=== PATIENT | male | born 1935 | race Caucasian/White ===

== ENCOUNTER 2016-12-05 20:26 | Emergency (ER) | payer MEDICARE, BC ==
[2016-12-05 20:56] VITALS: BP 144/91
--- NOTE | 2016-12-06 08:17 | EDM.PDOC ---
ED HPI GENERAL MEDICAL PROBLEM - General Chief Complaint: General Stated Complaint: WEAKNESS Time Seen by Provider: 12/05/16 20:50 Source of Information: Reports: Patient History Limitations: Reports: No limitations - History of Present Illness INITIAL COMMENTS - FREE TEXT/NARRATIVE: This is a 81yo M with severe abdominal pain prior to arrival in ER and resolved soon after arrival to ER. Patient denies prior episodes of abdominal pain. He denies any fever or chills and last meal was about 7pm. Patient denies other symptoms or concerns. No recent constipation or bM concerns. 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 HELPER: Reports: Other (see below) Other Treatments TERRAZZO LAYER HELPER: king alonzo Lower Abdominal Pain Score (Numeric/FACES): 10 - Related Data Allergies Allergy/AdvReac Type Severity Reaction Status Date / Time No Known Allergies Allergy Verified 01/21/16 17:37 Home Meds: Home Meds Acetaminophen/Diphenhydramine [Tylenol Pm Ex-Strength Caplet] 1 tab PO DAILY PRN 01/11/16 [History] Aspirin 81 mg PO DAILY 01/11/16 [History] Diltiazem [Cardizem] 240 mg PO DAILY 01/11/16 [History] Timolol [Betimol 0.5% Ophth Soln] 1 drop EYELF DAILY 01/11/16 [History] atorvaSTATin Calcium [Atorvastatin Calcium] 40 mg PO Q48H 01/11/16 [History] Past Medical History HEENT History: Reports: Glaucoma, Impaired vision Cardiovascular History: Reports: Afib, Bypass, High cholesterol, Hypertension Respiratory History: Reports: None Gastrointestinal History: Reports: None, GERD Musculoskeletal History: Reports: Back pain, chronic Neurological History: Reports: Vertigo Other Neuro History: Occ. Headaches Oncologic (Cancer) History: Reports: None - Infectious Disease History Infectious Disease History: Reports: Chicken pox, Measles - Past Surgical History Cardiovascular Surgical History: Reports: Coronary artery bypass Neurological Surgical History: Reports: Lumbar spine, Thoracic spine Other Neurological Surgeries/Procedures: B feet: decrease in sensation, no pain in LEs Musculoskeletal Surgical History: Reports: Other (see below) Other Musculoskeletal Surgeries/Procedures:: Back Surgery Social & Family History - Tobacco Use Smoking Status *Q: Current Every Day Smoker Years of Tobacco use: 60 Packs/Tins Daily: 1 Used Tobacco, but Quit: No Second Hand Smoke Exposure: No - Alcohol Use Days Per Week of Alcohol Use: 0 - Recreational Drug Use Recreational Drug Use: No ED ROS GENERAL - Review of Systems Review Of Systems: ROS reveals no pertinent complaints other than HPI. ED EXAM, GENERAL - Physical Exam Exam: See Below Exam Limited By: No limitations General Appearance: alert, WD/WN, no apparent distress Eye Exam: bilateral eye: PERRL Ears: normal external exam Nose: normal inspection Throat/Mouth: Normal inspection Head: atraumatic, normocephalic Neck: normal inspection, supple, non-tender Respiratory/Chest: no respiratory distress, lungs clear, normal breath sounds Cardiovascular: normal peripheral pulses, regular rate, rhythm, no edema GI/Abdominal: soft, non tender, no organomegaly, no distention, no abnormal bruit, no mass, abnormal bowel sounds: (hyperactive bowel sounds) Back Exam: normal inspection Extremities: normal inspection Neurological: alert, oriented Psychiatric: normal affect, normal mood Course - Vital Signs Last Recorded V/S: Last Vital Signs Temp 36.4 C 12/05/16 20:54 Pulse 59 L 12/05/16 20:54 Resp 16 12/05/16 20:54 BP 144/91 H 12/05/16 20:54 Pulse Ox 99 12/05/16 20:54 Departure - Departure Time of Disposition: 21:00 Disposition: Home, Self-Care 01 Condition: good Clinical Impression: Abdominal pain Qualifiers: Abdominal location: lower abdomen, unspecified Qualified Code(s): R10.30 - Lower abdominal pain, unspecified Forms: ED Department Discharge - Problem List & Annotations (1) Abdominal pain SNOMED Code(s): 74288885 Code(s): R10.9 - UNSPECIFIED ABDOMINAL PAIN Status: Acute Priority: High Qualifiers: Abdominal location: lower abdomen, unspecified Qualified Code(s): R10.30 - Lower abdominal pain, unspecified - Problem List Review Problem List Initiated/Reviewed/Updated: Yes - Assessment/Plan Plan: Counseled on rtc or ER as needed if symptoms return. Discussed likely recent ingestion and change of meals and increased gas. Discussed supportive measures but for close f/u for imaging if symptoms return. Family agree for f/u as directed.
== END 2016-12-05 21:07 | disposition home or self-care (01) ==
LOC: LB.ED 20:26
DX: R10.30 Lower abdominal pain, unspecified (principal); I48.91 Unspecified atrial fibrillation; E78.00 Pure hypercholesterolemia, unspecified; I10 Essential (primary) hypertension; K21.9 Gastro-esophageal reflux disease without esophagitis; F17.210 Nicotine dependence, cigarettes, uncomplicated; Z79.82 Long term (current) use of aspirin; Z79.899 Other long term (current) drug therapy; Z95.1 Presence of aortocoronary bypass graft
CPT/HCPCS: 99282; 99283

== ENCOUNTER 2017-08-20 17:22 | Emergency (ER) | payer MEDICARE, BC ==
[2017-08-20] MEDS ORDERED: Acetaminophen/oxyCODONE 325-5 MG Tab ONE (18:00)
[2017-08-20] MEDS ORDERED: predniSONE 10 MG Tab ONE (18:00)
--- NOTE | 2017-08-20 18:42 | EDM.PDOC ---
ED HPI GENERAL MEDICAL PROBLEM - General Stated Complaint: SWOLLEN FOOT Time Seen by Provider: 08/20/17 17:40 Source of Information: Reports: Patient, Family History Limitations: Reports: No Limitations - History of Present Illness INITIAL COMMENTS - FREE TEXT/NARRATIVE: Patient is a 81 year old man with a history of gout who is having a right great toe attack of gout that has been worsening for one week. No injury, no fever or chills. He is having a hard time walking on the foot due to the pain. Onset: Gradual Onset Date: 08/13/17 Onset Time: 08:00 Duration: Day(s): (7) Location: Reports: Lower Extremity, Right Quality: Reports: Ache, Same as Previous Episode, Sharp, Throbbing Severity: Moderate Improves with: Reports: Medication Worsens with: Reports: None Context: Reports: Other (History of gout.) Associated Symptoms: Reports: No Other Symptoms - Related Data Allergies Allergy/AdvReac Type Severity Reaction Status Date / Time No Known Allergies Allergy Verified 08/20/17 17:57 Home Meds: Home Meds Acetaminophen/Diphenhydramine [Tylenol Pm Ex-Strength Caplet] 1 tab PO DAILY PRN 01/11/16 [History] Aspirin 81 mg PO DAILY 01/11/16 [History] Diltiazem IR [Cardizem] 180 mg PO DAILY 01/11/16 [History] Timolol [Betimol 0.5% Ophth Soln] 1 drop EYELF DAILY 01/11/16 [History] atorvaSTATin Calcium [Atorvastatin Calcium] 40 mg PO Q48H 01/11/16 [History] Furosemide [Furosemide] 40 mg PO DAILY 08/20/17 [History] Isosorbide Dinitrate 10 mg PO TID 08/20/17 [History] Metoprolol Tartrate [Metoprolol Tartrate] 25 mg PO BID 08/20/17 [History] Multivit, Ca, Min/FA/Soy Isofl [One-A-Day Menopause Formula Tb] 1 tab PO DAILY 08/20/17 [History] Ubidecarenone [Co Q-10] 200 mg PO DAILY 08/20/17 [History] Past Medical History HEENT History: Reports: Glaucoma, Impaired Vision Cardiovascular History: Reports: Afib, Bypass, High Cholesterol, Hypertension Respiratory History: Reports: None Gastrointestinal History: Reports: None, GERD Musculoskeletal History: Reports: Back Pain, Chronic Neurological History: Reports: Vertigo Other Neuro History: Occ. Headaches Oncologic (Cancer) History: Reports: None - Infectious Disease History Infectious Disease History: Reports: Chicken Pox, Measles - Past Surgical History Cardiovascular Surgical History: Reports: Coronary Artery Bypass Neurological Surgical History: Reports: Lumbar Spine, Thoracic Spine Musculoskeletal Surgical History: Reports: Other (See Below) Other Musculoskeletal Surgeries/Procedures:: laminectomy Social & Family History - Tobacco Use Smoking Status *Q: Current Every Day Smoker Years of Tobacco use: 60 Packs/Tins Daily: 1 Used Tobacco, but Quit: No Second Hand Smoke Exposure: No - Alcohol Use Days Per Week of Alcohol Use: 0 - Recreational Drug Use Recreational Drug Use: No Review of Systems - Review of Systems Review Of Systems: See Below Constitutional: Reports: No Symptoms Eyes: Reports: No Symptoms Ears: Reports: No Symptoms Nose: Reports: No Symptoms Mouth/Throat: Reports: No Symptoms Respiratory: Reports: No Symptoms Cardiovascular: Reports: No Symptoms GI/Abdominal: Reports: No Symptoms Genitourinary: Reports: No Symptoms Musculoskeletal: Reports: Foot Pain (Right great toe MTP joint.) Skin: Reports: Erythema (At right great toe joint.) Neurological: Reports: No Symptoms Psychiatric: Reports: No Symptoms ED EXAM, GENERAL - Physical Exam Exam: See Below Exam Limited By: No Limitations General Appearance: Alert, WD/WN, No Apparent Distress Eye Exam: Bilateral Eye: EOMI, Normal Fundi, Normal Inspection, PERRL Ears: Normal External Exam, Normal Canal, Hearing Grossly Normal, Normal TMs Ear Exam: Bilateral Ear: Auricle Normal, Canal Normal, TM normal Nose: Normal Inspection Throat/Mouth: Normal Inspection, Normal Lips, Normal Teeth, Normal Gums, Normal Oropharynx, Normal Voice, No Airway Compromise Head: Atraumatic, Normocephalic Neck: Normal Inspection, Supple, Non-Tender, Full Range of Motion Respiratory/Chest: No Respiratory Distress, Lungs Clear, Normal Breath Sounds, No Accessory Muscle Use, Chest Non-Tender Cardiovascular: Normal Peripheral Pulses, Regular Rate, Rhythm, No Edema, No Gallop, No JVD, No Murmur, No Rub GI/Abdominal: Normal Bowel Sounds, Soft, Non-Tender, No Organomegaly, No Distention, No Abnormal Bruit, No Mass Extremities: Redness (Right great toe MTP joint with pain on palpation and ROM.) Neurological: Alert, Oriented, CN II-XII Intact, Normal Cognition, Normal Gait, Normal Reflexes, No Motor/Sensory Deficits Psychiatric: Normal Affect, Normal Mood Skin Exam: Warm, Dry, Intact, Normal Color, No Rash Lymphatic: No Adenopathy Course - Vital Signs Text/Narrative:: Uneventful ED course. He had labs that showed gout was present. He will be sent home on a Prednisone taper and Percocet 5-325 mg, one po q 4 hours prn, # 10 and he will follow up with Dr. Ferrer on next Tuesday or Tuesday. Recheck here in ED if needed before then. - Orders/Labs/Meds Labs: Laboratory Tests 08/20/17 08/20/17 Range/Units 17:55 17:55 WBC 8.0 (4.0-11.0) K/uL RBC 3.56 L (4.50-6.50) M/uL Hgb 11.2 L (13.0-18.0) g/dL Hct 33.6 L (40.0-54.0) % MCV 94 (76-96) fL MCH 31.5 (27.0-32.0) pg MCHC 33.3 (31.0-35.0) g/dL RDW 14.1 (11.0-16.0) % Plt Count 231 (150-400) K/uL MPV 11.2 H (6.0-10.0) fL Neut % (Auto) 63.5 (45.0-70.0) % Lymph % (Auto) 22.4 (20.0-40.0) % [place] % (Auto) 10.4 H (3.0-10.0) % Eos % (Auto) 3.3 (1.0-5.0) % Baso % (Auto) 0.4 (0.0-0.5) % Neut # (Auto) 5.08 (2.00-7.50) K/uL Lymph # (Auto) 1.79 (1.50-4.00) K/uL [place] # (Auto) 0.83 H (0.20-0.80) K/uL Eos # (Auto) 0.26 (0.04-0.40) K/uL Baso # (Auto) 0.03 (0.02-0.10) K/uL Sodium 145 (136-145) mmol/L Potassium 3.3 L (3.5-5.1) mmol/L Chloride 107 (98-107) mmol/L Carbon Dioxide 31.8 (21.0-32.0) mmol/L Anion Gap 9.5 (5.0-15.0) mmol/L BUN 22 (8-26) mg/dL Creatinine 1.33 H D (0.70-1.30) mg/dL Est Cr Clr Drug Dosing TNP Estimated GFR (MDRD) 52 L (>60) MLS/MIN BUN/Creatinine Ratio 16.5 (6-25) Glucose 130 H D (74-100) mg/dL Uric Acid 8.0 H (2.6-7.2) mg/dL Calcium 8.4 L (8.5-10.1) mg/dL Total Bilirubin 0.5 (0.0-1.0) mg/dL AST 20 (15-37) U/L ALT 19 (12-78) U/L Alkaline Phosphatase 38 L (46-116) U/L Total Protein 6.7 (6.4-8.2) g/dL Albumin 2.9 L (3.4-5.0) g/dL Globulin 3.8 (2.2-4.2) g/dL Albumin/Globulin Ratio 0.8 (0.8-2.0) Departure - Departure Time of Disposition: 18:44 Disposition: Home, Self-Care 01 Condition: Good Clinical Impression: Gout attack - Discharge Information Referrals: PCP,None [Primary Care Provider] -
[2017-08-20 21:26] VITALS: BP 156/76
== END 2017-08-20 18:30 | disposition home or self-care (01) ==
LOC: LB.ED 17:22
DX: M10.9 Gout, unspecified (principal); I10 Essential (primary) hypertension; E78.00 Pure hypercholesterolemia, unspecified; Z79.82 Long term (current) use of aspirin; Z79.899 Other long term (current) drug therapy; F17.210 Nicotine dependence, cigarettes, uncomplicated
CPT/HCPCS: 36415; 80053; 84550; 85025; 99283; A9270-GY

== ENCOUNTER 2018-01-16 18:21 | Emergency (ER) | payer MEDICARE, BC ==
[~2018-01-16 18:21] MED LIST: predniSONE 10 MG Tab ONE
[2018-01-17 00:30] VITALS: BP 145/95
--- NOTE | 2018-01-17 01:13 | ER ---
The patient is an 82-year-old male, who comes in today with a chief complaint of pain and swelling in the right foot. The patient has a history of gout in the past. He feels like he is having another episode of gout. ALLERGIES: NKDA. CURRENT MEDICATIONS: Atorvastatin 40 mg p.o. daily, Ubidecarenone, CoQ10 of 200 mg p.o. daily, timolol eye drops, metoprolol tartrate 25 mg p.o. b.i.d., isosorbide 10 mg p.o. t.i.d., furosemide 40 mg p.o. daily, Cardizem 180 mg p.o. daily, aspirin 81 mg p.o. daily, and Tylenol P.M. PAST MEDICAL HISTORY: The patient has a past history of atrial fibrillation. He has had gout in the past. He has had CHF and has a history of coronary artery disease. His notes he had another stent placed. He has had two in the last year, but otherwise had cardiac bypass surgery about 10 years ago. PHYSICAL EXAMINATION: GENERAL: He is alert, oriented, no apparent distress. His right foot is swollen by the metatarsal joint on the great toe. It is warm, hot, red to the touch. Appears quite classic for gout. ASSESSMENT: Gout. PLAN: We will put him on some prednisone 40 mg p.o. daily x7 days, then decreasing by 10 mg a day for 3 more days. Patient to return to clinic if this fails to improve dramatically over the next 24 to 48 hours. LALO /[id number]
== END 2018-01-16 19:10 | disposition home or self-care (01) ==
LOC: LB.ED 18:21
DX: M10.9 Gout, unspecified (principal)
CPT/HCPCS: 99283; A9270

== ENCOUNTER 2018-04-18 02:25 | Emergency (ER) | payer MEDICARE, BC ==
--- NOTE | 2018-04-18 04:03 | EDM.PDOC ---
ED HPI GENERAL MEDICAL PROBLEM - General Chief Complaint: General Stated Complaint: SOB Time Seen by Provider: 04/18/18 02:45 Source of Information: Reports: Patient History Limitations: Reports: No Limitations - History of Present Illness INITIAL COMMENTS - FREE TEXT/NARRATIVE: This is a 82yo M who comes in with shortness of breath and occasional chest pain. He states the shortness of breath started a month ago and he recently was in the ER for chest pains. He states he slept well yesterday but last night he was unable to sleep due to his shortness of breath. It is noted that he was recently changed from diltiazem and isosorbide to imdur and metorpolol. He was discharged on Tuesday with metoprolol tartrate BID and Imdur 30mg under the direction of Dr. Welch and Dr. Aragon. He was counseled to stop his metoprolol tartrate and start on his recently obtained prescription of metoprolol succinate in the morning. He did not have any meds last evening. He states he feels a little better since getting up and outside prior to arriving at the ER. 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 - Related Data Allergies Allergy/AdvReac Type Severity Reaction Status Date / Time No Known Allergies Allergy Verified 01/17/18 00:27 Home Meds: Home Meds Aspirin 81 mg PO DAILY 01/11/16 [History] Diltiazem IR [Cardizem] 180 mg PO DAILY 01/11/16 [History] atorvaSTATin Calcium [Atorvastatin Calcium] 40 mg PO DAILY 01/11/16 [History] Isosorbide Dinitrate 10 mg PO TID 08/20/17 [History] Metoprolol Tartrate 50 mg PO DAILY 08/20/17 [History] Clopidogrel Bisulfate [Clopidogrel] 1 tab PO DAILY 01/17/18 [History] Past Medical History HEENT History: Reports: Glaucoma, Impaired Vision Cardiovascular History: Reports: Afib, Bypass, High Cholesterol, Hypertension Respiratory History: Reports: None Gastrointestinal History: Reports: GERD Musculoskeletal History: Reports: Back Pain, Chronic Neurological History: Reports: Vertigo Other Neuro History: Occ. Headaches Hematologic History: Reports: Anticoagulation Therapy Oncologic (Cancer) History: Reports: None - Infectious Disease History Infectious Disease History: Reports: Chicken Pox - Past Surgical History HEENT Surgical History: Reports: None Cardiovascular Surgical History: Reports: Coronary Artery Bypass Other Cardiovascular Surgeries/Procedures: 1992 Neurological Surgical History: Reports: Lumbar Spine, Thoracic Spine Musculoskeletal Surgical History: Reports: Other (See Below) Other Musculoskeletal Surgeries/Procedures:: laminectomy Social & Family History - Family History Family Medical History: Noncontributory - Caffeine Use Caffeine Use: Reports: Coffee ED ROS GENERAL - Review of Systems Review Of Systems: ROS reveals no pertinent complaints other than HPI. ED EXAM, GENERAL - Physical Exam Exam: See Below Exam Limited By: No Limitations General Appearance: Alert, WD/WN, No Apparent Distress Eye Exam: Bilateral Eye: EOMI, PERRL Ears: Normal External Exam Nose: Normal Inspection Throat/Mouth: Normal Inspection Head: Atraumatic, Normocephalic Neck: Normal Inspection Respiratory/Chest: No Respiratory Distress, Lungs Clear, Normal Breath Sounds Cardiovascular: Irregularly Irregular Peripheral Pulses: 2+: Dorsalis Pedis (L), Dorsalis Pedis (R) GI/Abdominal: Normal Bowel Sounds Back Exam: Normal Inspection Extremities: Normal Inspection Course - Vital Signs Last Recorded V/S: Last Vital Signs Temp Pulse 110 H 04/18/18 04:25 Resp BP 143/96 H 04/18/18 04:25 Pulse Ox - Orders/Labs/Meds Orders: Active Orders 24 hr Category Date Time Status Cardiac Monitoring [RC] .As Directed Care 04/18/18 02:35 Active EKG Documentation Completion [RC] ASDIRECTED Care 04/18/18 02:58 Active HEPATITIS PANEL (4) Routine Lab 04/18/18 03:20 Received REVERSE T3, SERUM Routine Lab 04/18/18 03:20 Received THYROXINE (T4) FREE, DIRECT, S Routine Lab 04/18/18 03:20 Received Labs: Laboratory Tests 04/18/18 04/18/18 04/18/18 Range/Units 03:20 03:20 03:20 WBC 8.6 (4.0-11.0) K/uL RBC 3.98 L (4.50-6.50) M/uL Hgb 12.6 L (13.0-18.0) g/dL Hct 37.5 L (40.0-54.0) % MCV 94 (76-96) fL MCH 31.7 (27.0-32.0) pg MCHC 33.6 (31.0-35.0) g/dL RDW 15.4 (11.0-16.0) % Plt Count 166 (150-400) K/uL MPV 12.5 H (6.0-10.0) fL Neut % (Auto) 63.3 (45.0-70.0) % Lymph % (Auto) 23.6 (20.0-40.0) % [place] % (Auto) 11.0 H (3.0-10.0) % Eos % (Auto) 1.5 (1.0-5.0) % Baso % (Auto) 0.6 H (0.0-0.5) % Neut # (Auto) 5.41 (2.00-7.50) K/uL Lymph # (Auto) 2.02 (1.50-4.00) K/uL [place] # (Auto) 0.94 H (0.20-0.80) K/uL Eos # (Auto) 0.13 (0.04-0.40) K/uL Baso # (Auto) 0.05 (0.02-0.10) K/uL PT 11.9 H (9.0-11.5) sec INR 1.2 (1.0-3.5) D-Dimer, Quantitative (0-400) ng/mL Sodium 144 (136-145) mmol/L Potassium 4.0 (3.5-5.1) mmol/L Chloride 108 H (98-107) mmol/L Carbon Dioxide 23.8 (21.0-32.0) mmol/L Anion Gap 16.2 H (5.0-15.0) mmol/L BUN 27 H (8-26) mg/dL Creatinine 1.15 (0.70-1.30) mg/dL Est Cr Clr Drug Dosing TNP Estimated GFR (MDRD) > 60 (>60) MLS/MIN BUN/Creatinine Ratio 23.5 (6-25) Glucose 124 H (74-100) mg/dL Calcium 8.8 (8.5-10.1) mg/dL Total Bilirubin 1.1 H D (0.0-1.0) mg/dL AST 48 H (15-37) U/L ALT 91 H (12-78) U/L Alkaline Phosphatase 40 L (46-116) U/L Troponin I 0.037 D (0.000-0.060) ng/mL B-Natriuretic Peptide 14825 H D (0-450) pg/mL Total Protein 6.7 (6.4-8.2) g/dL Albumin 3.5 (3.4-5.0) g/dL Globulin 3.2 (2.2-4.2) g/dL Albumin/Globulin Ratio 1.1 (0.8-2.0) TSH, Ultra Sensitive 10.312 H D (0.358-3.740) uIU/mL 04/18/18 Range/Units 03:20 WBC (4.0-11.0) K/uL RBC (4.50-6.50) M/uL Hgb (13.0-18.0) g/dL Hct (40.0-54.0) % MCV (76-96) fL MCH (27.0-32.0) pg MCHC (31.0-35.0) g/dL RDW (11.0-16.0) % Plt Count (150-400) K/uL MPV (6.0-10.0) fL Neut % (Auto) (45.0-70.0) % Lymph % (Auto) (20.0-40.0) % [place] % (Auto) (3.0-10.0) % Eos % (Auto) (1.0-5.0) % Baso % (Auto) (0.0-0.5) % Neut # (Auto) (2.00-7.50) K/uL Lymph # (Auto) (1.50-4.00) K/uL [place] # (Auto) (0.20-0.80) K/uL Eos # (Auto) (0.04-0.40) K/uL Baso # (Auto) (0.02-0.10) K/uL PT (9.0-11.5) sec INR (1.0-3.5) D-Dimer, Quantitative 316 (0-400) ng/mL Sodium (136-145) mmol/L Potassium (3.5-5.1) mmol/L Chloride (98-107) mmol/L Carbon Dioxide (21.0-32.0) mmol/L Anion Gap (5.0-15.0) mmol/L BUN (8-26) mg/dL Creatinine (0.70-1.30) mg/dL Est Cr Clr Drug Dosing Estimated GFR (MDRD) (>60) MLS/MIN BUN/Creatinine Ratio (6-25) Glucose (74-100) mg/dL Calcium (8.5-10.1) mg/dL Total Bilirubin (0.0-1.0) mg/dL AST (15-37) U/L ALT (12-78) U/L Alkaline Phosphatase (46-116) U/L Troponin I (0.000-0.060) ng/mL B-Natriuretic Peptide (0-450) pg/mL Total Protein (6.4-8.2) g/dL Albumin (3.4-5.0) g/dL Globulin (2.2-4.2) g/dL Albumin/Globulin Ratio (0.8-2.0) TSH, Ultra Sensitive (0.358-3.740) uIU/mL Meds: Medications Discontinued Medications Generic Name Dose Route Start Last Admin Trade Name Freq PRN Reason Stop Dose Admin Metoprolol Tartrate 5 mg 04/18/18 04:18 04/18/18 04:25 Lopressor IVPUSH 04/18/18 04:19 5 mg ONETIME ONE Administration Departure - Departure Time of Disposition: 05:00 Disposition: Home, Self-Care 01 Condition: Fair Clinical Impression: Shortness of breath, Chest tightness or pressure, Atrial fibrillation with RVR - Discharge Information Referrals: PCP,None [Primary Care Provider] - Forms: ED Department Discharge - Problem List Review Problem List Initiated/Reviewed/Updated: Yes - My Orders Last 24 Hours: My Active Orders 04/18/18 02:35 Cardiac Monitoring [RC] .As Directed 04/18/18 02:58 EKG Documentation Completion [RC] ASDIRECTED 04/18/18 03:20 HEPATITIS PANEL (4) Routine REVERSE T3, SERUM Routine THYROXINE (T4) FREE, DIRECT, S Routine - Assessment/Plan Last 24 Hours: My Active Orders 04/18/18 02:35 Cardiac Monitoring [RC] .As Directed 04/18/18 02:58 EKG Documentation Completion [RC] ASDIRECTED 04/18/18 03:20 HEPATITIS PANEL (4) Routine REVERSE T3, SERUM Routine THYROXINE (T4) FREE, DIRECT, S Routine Plan: Counseled on hospital admit but patient would like to go home. Discussed options and plan of care and patient will f/u closely in clinic and return to ER as needed. Discussed rate control and increase to metoprolol 75 mg ER. F/u in clinic for recheck and rate control and BP control closely and as needed in ER.
[2018-04-18] MEDS ORDERED: Metoprolol Tartrate 5 MG/5 ML SDV IVPUSH ONE (04:18)
[2018-04-18 05:17] VITALS: BP 143/96
--- NOTE | 2018-04-18 11:24 | CR ---
DATE OF SERVICE: 04/18/18 CLINICAL DATA: shortness of breath, chest pain PORTABLE AP CHEST: Comparison made to a prior exam dated 04/15/18. The heart and lungs are stable. No acute abnormalities. [id number] [facility]
[2018-04-20 04:20] LABS: HBSAG SCREEN Negative (Negative); HEP A AB, IGM Negative (Negative); HEP B CORE AB, IGM Negative (Negative); HEP C VIRUS AB <0.1 s/co ratio (0.0-0.9)
== END 2018-04-18 04:45 | disposition home or self-care (01) ==
LOC: LB.ED 02:25
DX: I48.91 Unspecified atrial fibrillation (principal); I10 Essential (primary) hypertension
CPT/HCPCS: 36415; 71045; 80053; 80074; 83880; 84439; 84443; 84482; 84484; 85025; 85379; 85610; 93005; 96374; 99285-25; J3490

== ENCOUNTER 2018-04-19 15:29 | Emergency (ER) | payer MEDICARE, BC | END 2018-04-19 16:30 | LOC: LB.ED 15:29 | DX: Z53.21 Procedure and treatment not carried out due to patient leaving prior to being seen by health care provider (principal) | CPT/HCPCS: 36415; 80048; 83880; 84484; 85025; 93005; 99285; A0425; A0429 ==

== ENCOUNTER 2018-10-02 14:11 | Emergency (ER) | payer BC, MEDICARE ==
[2018-10-02 14:51] VITALS: BP 116/80
[2018-10-02] MEDS: Furosemide 40 MG/4 ML VIAL IVPUSH ONE (15:49)
--- NOTE | 2018-10-02 17:10 | CR ---
PORTABLE CHEST, 10/02/18 Comparison is made to a prior exam dated 08/06/18. The patient is status post median sternotomy. The cardiac pacer and pacer wires remain unchanged in position. The heart remains enlarged, unchanged. The aorta is calcified and ectatic. The pulmonary vascular congestion on the prior exam has improved. The lungs are clear. No pneumothorax. No pleural effusions. [id number] [facility]
--- NOTE | 2018-10-02 17:12 | EDM.PDOC ---
ED HPI GENERAL MEDICAL PROBLEM - General Chief Complaint: Cardiovascular Problem Stated Complaint: SOB/weight gain Time Seen by Provider: 10/02/18 14:20 Source of Information: Reports: Patient, Family History Limitations: Reports: No Limitations - History of Present Illness INITIAL COMMENTS - FREE TEXT/NARRATIVE: Pt is 82 year old male with severe ischemic cardiomyopathy with CHF.According to patient's spouse , patient has gained about 11 lbs of weight over the past 1 wk. He has also been having increased swelling of the lower extremities and noted to be short of breath with exertion. She did call his [employer]yl[employer] Operator Helper's office at [facility] and was told to go to emergency room.Pt has been on lasix 30mg BID. He did not get his lasix today as his systolic pressure was 90mmhg in the morning. Pt on questioning claims he feels fine. No chest pain or discomfort. His SPO2 is 93% on room air. Presently not short of breath. No other complaints. Onset: Gradual Duration: Week(s): (1), Getting Worse Severity: Mild Improves with: Reports: None Worsens with: Reports: None Associated Symptoms: Reports: Shortness of Breath, Weakness. Denies: Confusion , Chest Pain, Cough, Diaphoresis, Fever/Chills, Headaches, Nausea/Vomiting, Rash , Seizure, Syncope - Related Data Allergies Allergy/AdvReac Type Severity Reaction Status Date / Time No Known Allergies Allergy Verified 10/02/18 14:29 Home Meds: Home Meds Apixaban [Eliquis] 5 mg PO BID 04/30/18 [History] Timolol [Betimol 0.5% Ophth Soln] 1 drop EYELF QPM 04/30/18 [History] atorvaSTATin [Lipitor] 40 mg PO BEDTIME 06/23/18 [History] Acetaminophen [Tylenol Arthritis Pain] 650 mg PO Q4H PRN tab.er 07/03/18 [Rx] Amiodarone [Cordarone] 200 mg PO DAILY #0 tablet 07/03/18 [Rx] Clopidogrel [Plavix] 75 mg PO DAILY tablet 07/03/18 [Rx] Levothyroxine Sodium [Synthroid] 100 mcg PO ACBREAKFAST 30 Days #30 tab [Rx] Nitroglycerin [Nitrostat] 0.4 mg SL Q5M PRN tab.sl 07/03/18 [Rx] Tamsulosin [Flomax] 0.4 mg PO BEDTIME 30 Days #30 cap.er 07/03/18 [Rx] Famotidine [Pepcid] 20 mg PO ACBREAKFAST 10/02/18 [History] Furosemide [Lasix] 30 mg PO ASDIRECTED PRN 10/02/18 [History] Metoprolol Tartrate 50 mg PO BID 10/02/18 [History] Potassium Chloride [Klor-Con] 20 meq PO DAILY 10/02/18 [History] Past Medical History HEENT History: Reports: Glaucoma, Impaired Vision Cardiovascular History: Reports: Afib, Bypass, High Cholesterol, Hypertension, [place], Pacemaker Other Cardiovascular History: 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 Headaches Endocrine/Metabolic History: Reports: Hypoparathyroidism Hematologic History: Reports: Anticoagulation Therapy Oncologic (Cancer) History: Reports: None - Infectious Disease History Infectious Disease History: Reports: Chicken Pox - Past Surgical History HEENT Surgical History: Reports: None Cardiovascular Surgical History: Reports: Coronary Artery Bypass, Coronary Artery Stent, Pacer Other Cardiovascular Surgeries/Procedures: 1992 GI Surgical History: Reports: None Neurological Surgical History: Reports: Lumbar Spine, Thoracic Spine Musculoskeletal Surgical History: Reports: Other (See Below) Other Musculoskeletal Surgeries/Procedures:: laminectomy Social & Family History - Family History Family Medical History: Noncontributory - Caffeine Use Caffeine Use: Reports: Coffee ED ROS GENERAL - Review of Systems Review Of Systems: See Below Constitutional: Reports: Weakness. Denies: Fever, Chills, Night Sweats, Diaphoresis HEENT: Denies: Rhinitis, Throat Pain, Throat Swelling Respiratory: Reports: Shortness of Breath. Denies: Wheezing, Pleuritic Chest Pain, Cough, Sputum Cardiovascular: Reports: Edema. Denies: Chest Pain, Lightheadedness, Syncope GI/Abdominal: Denies: Abdominal Pain, Nausea, Vomiting Musculoskeletal: Denies: Joint Pain, Joint Swelling Skin: Denies: Bruising, Pruritis, Rash Neurological: Denies: Confusion, Dizziness, Headache, Numbness, Tingling ED EXAM, GENERAL - Physical Exam Exam: See Below Exam Limited By: No Limitations General Appearance: Alert, WD/WN, No Apparent Distress Eye Exam: Bilateral Eye: EOMI, PERRL Ears: Normal External Exam, Normal Canal, Hearing Grossly Normal, Normal TMs Ear Exam: Bilateral Ear: Auricle Normal, Canal Normal, TM normal Nose: Normal Inspection, Normal Mucosa, No Blood Throat/Mouth: Normal Inspection, Normal Lips, Normal Teeth, Normal Gums, Normal Oropharynx, Normal Voice, No Airway Compromise Head: Atraumatic, Normocephalic Neck: Normal Inspection, Supple, Non-Tender, Full Range of Motion Respiratory/Chest: No Respiratory Distress, Lungs Clear, Normal Breath Sounds, No Accessory Muscle Use, Chest Non-Tender Cardiovascular: Normal Peripheral Pulses, Regular Rate, Rhythm, No Edema, No Gallop, No JVD, No Murmur, No Rub GI/Abdominal: Normal Bowel Sounds, Soft, Non-Tender, No Organomegaly, No Distention, No Abnormal Bruit, No Mass Extremities: Normal Inspection, Pedal Edema (3+ pitting type B/L) Neurological: Alert, Oriented EKG INTERPRETATION EKG Date: 10/02/18 EKG Interpretation Comments: paced rhythm rate 70s Course - Vital Signs Text/Narrative:: Pt's clinical exam appears normal other than his lower extremity pitting edema. His cbc is normal. CMP shows normal renal functions and electrolytes. His BNP is elevated from chronic CHF. He is not n any distress. His Chest x-ray appears normal, other than cardiomegaly, no signs of fluid over load. Pt and family reassured with results. I have recommended daily weights along with close fluid intake and output monitoring. Strict salt restriction to 1.2 gm daily. Fluid restriction to 1000cc/ daily.He does have lower extremity edema where all the fluid seems to retained. He did receive 20mg IV Lasix. Also I have stopped his lasix and tried oral bumex 40mg BID for next week to see, if he diuresis better. Also advised to continue potassium daily. Call in 2-3 days with weight and fluid charting. Return to emergency room if symptoms worsen. Last Recorded V/S: Last Vital Signs Temp 97.7 F 10/02/18 14:17 Pulse 68 10/02/18 15:18 Resp 20 10/02/18 15:18 BP 116/80 10/02/18 14:30 Pulse Ox 99 10/02/18 15:18 - Orders/Labs/Meds Orders: Active Orders 24 hr Category Date Time Status Chest 1V Frontal [CR] Stat Exams 10/02/18 14:40 Taken Labs: Laboratory Tests 10/02/18 10/02/18 10/02/18 Range/Units 14:40 14:40 14:40 WBC 5.4 D (4.0-11.0) K/uL RBC 3.01 L (4.50-6.50) M/uL Hgb 8.8 L (13.0-18.0) g/dL Hct 28.1 L (40.0-54.0) % MCV 93 (76-96) fL MCH 29.2 (27.0-32.0) pg MCHC 31.3 (31.0-35.0) g/dL RDW 15.2 (11.0-16.0) % Plt Count 205 (150-400) K/uL MPV 12.0 H (6.0-10.0) fL Neut % (Auto) 65.4 (45.0-70.0) % Lymph % (Auto) 20.6 (20.0-40.0) % [place] % (Auto) 9.5 (3.0-10.0) % Eos % (Auto) 3.9 (1.0-5.0) % Baso % (Auto) 0.6 H (0.0-0.5) % Neut # (Auto) 3.52 (2.00-7.50) K/uL Lymph # (Auto) 1.11 L (1.50-4.00) K/uL [place] # (Auto) 0.51 (0.20-0.80) K/uL Eos # (Auto) 0.21 (0.04-0.40) K/uL Baso # (Auto) 0.03 (0.02-0.10) K/uL Sodium 143 (136-145) mmol/L Potassium 3.7 (3.5-5.1) mmol/L Chloride 103 (98-107) mmol/L Carbon Dioxide 29.0 D (21.0-32.0) mmol/L Anion Gap 14.7 (5.0-15.0) mmol/L BUN 24 (8-26) mg/dL Creatinine 1.31 H (0.70-1.30) mg/dL Est Cr Clr Drug Dosing TNP Estimated GFR (MDRD) 53 L (>60) MLS/MIN BUN/Creatinine Ratio 18.3 (6-25) Glucose 113 H (74-100) mg/dL Calcium 8.7 (8.5-10.1) mg/dL Total Bilirubin 0.7 (0.0-1.0) mg/dL AST 22 (15-37) U/L ALT 25 (12-78) U/L Alkaline Phosphatase 50 (46-116) U/L B-Natriuretic Peptide 86384 H D (0-450) pg/mL Total Protein 7.1 (6.4-8.2) g/dL Albumin 3.4 (3.4-5.0) g/dL Globulin 3.7 (2.2-4.2) g/dL Albumin/Globulin Ratio 0.9 (0.8-2.0) Meds: Medications Discontinued Medications Generic Name Dose Route Start Last Admin Trade Name Freq PRN Reason Stop Dose Admin Furosemide Confirm 10/02/18 15:51 Lasix Administered 10/02/18 15:52 Dose 40 mg .ROUTE .STK-MED ONE Furosemide 20 mg 10/02/18 15:45 Lasix IVPUSH 10/02/18 15:46 NOW ONE Departure - Departure Time of Disposition: 15:30 Disposition: Home, Self-Care 01 Condition: Fair Clinical Impression: CHF (congestive heart failure), NYHA class III Instructions: Low-Sodium Eating Plan, Heart Failure, [id number] Referrals: PCP,None [Primary Care Provider] - Forms: ED Department Discharge Additional Instructions: Take Bumex 1mg by mouth twice a day. May start tonight. Monitor strict intake and output of fluids. Continue with daily weights. Restrict sodium to 1,200mg in a day. Report back to Dr. Welch in 2-3 days to see how Bumex is working for you. Call clinic at [phone]. Seek medical attention for severe shortness of breath, nausea/vomiting, chest pain, or dizziness. - Problem List & Annotations (1) CHF (congestive heart failure), NYHA class III SNOMED Code(s): 317866606, 804668305 Code(s): I50.9 - HEART FAILURE, UNSPECIFIED Status: Acute Current Visit: Yes - Problem List Review Problem List Initiated/Reviewed/Updated: Yes - My Orders Last 24 Hours: My Active Orders 10/02/18 14:40 Chest 1V Frontal [CR] Stat - Assessment/Plan Last 24 Hours: My Active Orders 10/02/18 14:40 Chest 1V Frontal [CR] Stat Assessment:: CHF with weight gain Plan: Pt's clinical exam appears normal other than his lower extremity pitting edema. His cbc is normal. CMP shows normal renal functions and electrolytes. His BNP is elevated from chronic CHF. He is not n any distress. His Chest x-ray appears normal, other than cardiomegaly, no signs of fluid over load. Pt and family reassured with results. I have recommended daily weights along with close fluid intake and output monitoring. Strict salt restriction to 1.2 gm daily. Fluid restriction to 1000cc/ daily.He does have lower extremity edema where all the fluid seems to retained. He did receive 20mg IV Lasix. Also I have stopped his lasix and tried oral bumex 40mg BID for next week to see, if he diuresis better. Also advised to continue potassium daily. Call in 2-3 days with weight and fluid charting. Return to emergency room if symptoms worsen.
[2018-10-02] MEDS: Furosemide 40 MG/4 ML VIAL ONE (17:22)
== END 2018-10-02 16:28 | disposition home or self-care (01) ==
LOC: LB.ED 14:11
DX: I11.0 Hypertensive heart disease with heart failure (principal); I50.9 Heart failure, unspecified; I48.91 Unspecified atrial fibrillation; E78.00 Pure hypercholesterolemia, unspecified; I10 Essential (primary) hypertension; I25.2 Old myocardial infarction; J44.9 Chronic obstructive pulmonary disease, unspecified; K21.9 Gastro-esophageal reflux disease without esophagitis; Z79.01 Long term (current) use of anticoagulants; Z79.899 Other long term (current) drug therapy
CPT/HCPCS: 36415; 71045; 80053; 83880; 85025; 93005; 96374; 99285-25; J1940

== ENCOUNTER 2021-03-14 12:46 | Observation (INO) | payer MEDICARE ==
--- NOTE | 2021-03-14 13:30 | EDM.PDOC ---
ED HPI GENERAL MEDICAL PROBLEM - General Chief Complaint: General Stated Complaint: weakness, yellow skin Time Seen by Provider: 03/14/21 13:05 Source of Information: Reports: Patient History Limitations: Reports: No Limitations - History of Present Illness INITIAL COMMENTS - FREE TEXT/NARRATIVE: patient was brought to the ER by his - due to a c/o jaundice and weight loss for 1-2 weeks. Loss appetite as well. Lost around 20 lbs over 1 month. no N/V/D. but repots his stool is pale and got dark urine. no abdominal discomfort. h/o CAD, and CHF - has a pacemaker. Onset: Gradual Duration: Week(s): (2) Right Lower Abdomen Pain Score (Numeric/FACES): 1 - Related Data Allergies Allergy/AdvReac Type Severity Reaction Status Date / Time No Known Allergies Allergy Verified 10/02/18 14:29 Home Meds: Home Meds Apixaban [Eliquis] 5 mg PO BID 04/30/18 [History] Timolol [Betimol 0.5% Ophth Soln] 1 drop EYELF QPM 04/30/18 [History] atorvaSTATin [Lipitor] 40 mg PO BEDTIME 06/23/18 [History] Acetaminophen [Tylenol Arthritis Pain] 650 mg PO Q4H PRN tab.er 07/03/18 [Rx] Amiodarone [Cordarone] 200 mg PO DAILY #0 tablet 07/03/18 [Rx] Clopidogrel [Plavix] 75 mg PO DAILY tablet 07/03/18 [Rx] Levothyroxine Sodium [Synthroid] 100 mcg PO ACBREAKFAST 30 Days #30 tab 07/03/18 [Rx] Nitroglycerin [Nitrostat] 0.4 mg SL Q5M PRN tab.sl 07/03/18 [Rx] Tamsulosin [Flomax] 0.4 mg PO BEDTIME 30 Days #30 cap.er 07/03/18 [Rx] Famotidine [Pepcid] 20 mg PO ACBREAKFAST 10/02/18 [History] Furosemide [Lasix] 30 mg PO ASDIRECTED PRN 10/02/18 [History] Metoprolol Tartrate 50 mg PO BID 10/02/18 [History] Potassium Chloride [Klor-Con] 20 meq PO DAILY 10/02/18 [History] Past Medical History HEENT History: Reports: Glaucoma, Impaired Vision Cardiovascular History: Reports: Afib, Bypass, High Cholesterol, Hypertension, [place], Pacemaker Other Cardiovascular History: 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 Headaches Endocrine/Metabolic History: Reports: Hypoparathyroidism Hematologic History: Reports: Anticoagulation Therapy Oncologic (Cancer) History: Reports: None - Infectious Disease History Infectious Disease History: Reports: Chicken Pox - Past Surgical History HEENT Surgical History: Reports: None Cardiovascular Surgical History: Reports: Coronary Artery Bypass, Coronary Artery Stent, Pacer Other Cardiovascular Surgeries/Procedures: 1992 GI Surgical History: Reports: None Neurological Surgical History: Reports: Lumbar Spine, Thoracic Spine Musculoskeletal Surgical History: Reports: Other (See Below) Other Musculoskeletal Surgeries/Procedures:: laminectomy Social & Family History - Family History Family Medical History: No Pertinent Family History - Caffeine Use Caffeine Use: Reports: Coffee ED ROS GENERAL - Review of Systems Review Of Systems: See Below Constitutional: Reports: Malaise, Fatigue, Weight Loss Respiratory: Reports: No Symptoms Cardiovascular: Reports: No Symptoms Skin: Reports: Jaundice ED EXAM, GENERAL - Physical Exam Exam: See Below Exam Limited By: No Limitations General Appearance: Alert, WD/WN, No Apparent Distress, Thin, Cachetic Eye Exam: Bilateral Eye: EOMI Head: Atraumatic Neck: Normal Inspection Respiratory/Chest: No Respiratory Distress, Lungs Clear, Normal Breath Sounds Cardiovascular: Normal Peripheral Pulses, Regular Rate, Rhythm GI/Abdominal: Normal Bowel Sounds, Soft, Non-Tender, Distended Neurological: Alert, Oriented, No Motor/Sensory Deficits Psychiatric: Normal Affect Skin Exam: Jaundice Course - Vital Signs Last Recorded V/S: Last Vital Signs Temp 37.1 C 03/14/21 13:14 Pulse 85 03/14/21 13:14 Resp 18 03/14/21 13:14 BP 106/81 03/14/21 13:14 Pulse Ox 98 03/14/21 13:14 - Orders/Labs/Meds Orders: Active Orders 24 hr Category Date Time Status Patient Status [ADT] Routine ADT 03/14/21 14:51 Ordered Oxygen Therapy [RC] PRN Care 03/14/21 14:51 Ordered Vital Signs [RC] Q4H Care 03/14/21 14:51 Ordered Regular Diet [DIET] Diet 03/14/21 Dinner Ordered Abdomen Pelvis wo Cont [CT] Stat Exams 03/14/21 13:46 Taken UA W/MICROSCOPIC [URIN] Stat Lab 03/14/21 12:51 Ordered Resuscitation Status Routine Resus Stat 03/14/21 14:51 Ordered Labs: Laboratory Tests 03/14/21 03/14/21 03/14/21 Range/Units 13:00 13:00 13:00 WBC 6.7 (4.0-11.0) K/uL RBC 3.98 L (4.50-6.50) M/uL Hgb 12.7 L (13.0-18.0) g/dL Hct 35.9 L (40.0-54.0) % MCV 90 (76-96) fL MCH 31.9 (27.0-32.0) pg MCHC 35.4 H (31.0-35.0) g/dL RDW 16.4 H (11.0-16.0) % Plt Count 209 D (150-400) K/uL MPV 12.5 H (6.0-10.0) fL Sodium 141 (136-145) mmol/L Potassium 2.1 L* D (3.5-5.1) mmol/L Chloride 99 (98-107) mmol/L Carbon Dioxide 32.3 H (21.0-32.0) mmol/L Anion Gap 11.8 (5.0-15.0) mmol/L BUN 19 (8-26) mg/dL Creatinine 1.57 H D (0.70-1.30) mg/dL Est Cr Clr Drug Dosing 31.01 mL/min Estimated GFR (MDRD) 42 L (>60) MLS/MIN BUN/Creatinine Ratio 12.1 (6-25) Glucose 151 H D (74-100) mg/dL Calcium 8.8 (8.5-10.1) mg/dL Magnesium (1.8-2.4) mg/dL Total Bilirubin 5.3 H D (0.0-1.0) mg/dL Direct Bilirubin (0.0-0.3) mg/dL AST 140 H (15-37) U/L ALT 120 H (12-78) U/L Alkaline Phosphatase 391 H (46-116) U/L B-Natriuretic Peptide (0-450) pg/mL Total Protein 7.5 (6.4-8.2) g/dL Albumin 2.5 L (3.4-5.0) g/dL Globulin 5.0 H (2.2-4.2) g/dL Albumin/Globulin Ratio 0.5 L (0.8-2.0) Lipase 756 H* (73-393) U/L 03/14/21 03/14/21 Range/Units 13:00 13:00 WBC (4.0-11.0) K/uL RBC (4.50-6.50) M/uL Hgb (13.0-18.0) g/dL Hct (40.0-54.0) % MCV (76-96) fL MCH (27.0-32.0) pg MCHC (31.0-35.0) g/dL RDW (11.0-16.0) % Plt Count (150-400) K/uL MPV (6.0-10.0) fL Sodium (136-145) mmol/L Potassium (3.5-5.1) mmol/L Chloride (98-107) mmol/L Carbon Dioxide (21.0-32.0) mmol/L Anion Gap (5.0-15.0) mmol/L BUN (8-26) mg/dL Creatinine (0.70-1.30) mg/dL Est Cr Clr Drug Dosing mL/min Estimated GFR (MDRD) (>60) MLS/MIN BUN/Creatinine Ratio (6-25) Glucose (74-100) mg/dL Calcium (8.5-10.1) mg/dL Magnesium 2.0 (1.8-2.4) mg/dL Total Bilirubin (0.0-1.0) mg/dL Direct Bilirubin 4.1 H (0.0-0.3) mg/dL AST (15-37) U/L ALT (12-78) U/L Alkaline Phosphatase (46-116) U/L B-Natriuretic Peptide 5462 H D (0-450) pg/mL Total Protein (6.4-8.2) g/dL Albumin (3.4-5.0) g/dL Globulin (2.2-4.2) g/dL Albumin/Globulin Ratio (0.8-2.0) Lipase (73-393) U/L Meds: Medications Discontinued Medications Generic Name Dose Route Start Last Admin Trade Name Danielle PRN Reason Stop Dose Admin Potassium Chloride 10 meq/ 50 mls @ 50 mls/hr 03/14/21 13:46 03/14/21 14:02 Premix IV 03/14/21 14:45 50 mls/hr ONETIME ONE Administration - Radiology Interpretation Free Text/Narrative:: CT abd/pelv - showed dilation of CBD, and 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 - Re-Assessments/Exams Free Text/Narrative Re-Assessment/Exam: labs significant for hypokalemia, and mild elevation in Cr. also significant for elevation in TB and DB, Alk Phos and AST/ALT. lipase as well. concerns for pancreatic malignancy CT abd/pelv - showed a pancreatic mass. IVF was started and K IV replacement called [facility] - spoke to the hospitalist - on Oncology oncall this weekend and no GI, but will be available next week - recommended to call cancer center to arrange for a plan on Tuesday [phone] Will admit the patient for hydration and K replacement patient and agreed with the plan Departure - Departure Time of Disposition: 14:58 Disposition: Refer to Observation Condition: Fair Clinical Impression: Acute hypokalemia, Jaundice, Dehydration Pancreatic cancer Qualifiers: Pancreatic malignancy location: body of pancreas Qualified Code(s): C25.1 - Malignant neoplasm of body of pancreas - Discharge Information *PRESCRIPTION DRUG MONITORING PROGRAM REVIEWED*: Not Applicable *COPY OF PRESCRIPTION DRUG MONITORING REPORT IN PATIENT JASPAL: Not Applicable Forms: ED Department Discharge Sepsis Event Note (ED) - Evaluation Sepsis Screening Result: No Definite Risk - Focused Exam Vital Signs: Vital Signs Temp Pulse Resp BP Pulse Ox 03/14/21 13:14 37.1 C 85 18 106/81 98 - Problem List & Annotations (1) Acute hypokalemia SNOMED Code(s): 98552664 Code(s): E87.6 - HYPOKALEMIA Status: Acute Priority: Medium (2) Dehydration SNOMED Code(s): 61344320 Code(s): E86.0 - DEHYDRATION Status: Acute Priority: Medium (3) Jaundice SNOMED Code(s): 77793673 Code(s): R17 - UNSPECIFIED JAUNDICE Status: Acute Priority: Medium (4) Pancreatic cancer SNOMED Code(s): 450464385 Code(s): C25.9 - MALIGNANT NEOPLASM OF PANCREAS, UNSPECIFIED Status: Acute Priority: Medium Qualifiers: Pancreatic malignancy location: body of pancreas Qualified Code(s): C25.1 - Malignant neoplasm of body of pancreas - Problem List Review Problem List Initiated/Reviewed/Updated: Yes - My Orders Last 24 Hours: My Active Orders 03/14/21 12:51 UA W/MICROSCOPIC [URIN] Stat 03/14/21 13:46 Abdomen Pelvis wo Cont [CT] Stat 03/14/21 14:51 Patient Status [ADT] Routine Oxygen Therapy [RC] PRN Vital Signs [RC] Q4H Resuscitation Status Routine 03/14/21 Dinner Regular Diet [DIET] - Assessment/Plan Last 24 Hours: My Active Orders 03/14/21 12:51 UA W/MICROSCOPIC [URIN] Stat 03/14/21 13:46 Abdomen Pelvis wo Cont [CT] Stat 03/14/21 14:51 Patient Status [ADT] Routine Oxygen Therapy [RC] PRN Vital Signs [RC] Q4H Resuscitation Status Routine 03/14/21 Dinner Regular Diet [DIET] Plan: - admit to observation 1- dehydration: gentle IVF and hydration. h/o CFH 2- Acute hypokalemia: K replacement 3- jaundice: 2/2 pancreatic CA. Will contact cancer center on Tuesday for arrangement 4- weight loss and cachexia: 2/2 above 5- h/o CHF: resume home meds as before
[2021-03-14] MEDS ORDERED: Potassium Chloride Riders 10 MEQ in Premix Bag 1 BAG IV ONE ×2 (13:46→15:02)
[2021-03-14] MEDS: Lactated Ringers 1,000 ML IV SCH (18:41)
[2021-03-14] MEDS ORDERED: Potassium Chloride Riders 50 ML ONE (18:41)
[2021-03-14] MEDS ORDERED: Sodium Chloride 0.9% 10 ML Syringe FLUSH PRN (19:13)
[2021-03-14] MEDS: Metoprolol Tartrate 25 MG Tab PO SCH (19:34)
[2021-03-14] MEDS: Potassium Chloride 10 MEQ Tab.ER PO SCH (19:34)
[2021-03-14] MEDS: atorvaSTATin 40 MG Tab PO SCH (19:34)
[2021-03-14] MEDS: Tamsulosin 0.4 MG Cap.ER PO SCH (19:34)
[2021-03-14] MEDS: Apixaban 5 MG Tab PO SCH (19:35)
[2021-03-14] MEDS: Famotidine 20 MG Tab PO SCH (19:35)
[2021-03-14] MEDS ORDERED: Timolol Maleate 0.5% Ophth Soln 5 ML Bottle EYELF SCH (20:00)
[2021-03-14] MEDS: TIMOLOL 0.25% EYELF SCH (20:45)
[2021-03-15] MEDS: Lactated Ringers 1,000 ML IV SCH ×3 (04:11→23:48)
[2021-03-15] MEDS: Levothyroxine 100 MCG Tab PO SCH (06:24)
[2021-03-15] MEDS: Famotidine 20 MG Tab PO SCH ×2 (08:09→19:37)
[2021-03-15] MEDS: Metoprolol Tartrate 25 MG Tab PO SCH ×2 (08:10→19:38)
[2021-03-15] MEDS: Aspirin 81 MG Tab.Chew PO SCH (08:10)
[2021-03-15] MEDS: Apixaban 5 MG Tab PO SCH ×2 (08:10→19:38)
[2021-03-15] MEDS ORDERED: Potassium Chloride Riders 50 ML ONE ×3 (10:07→20:08)
[2021-03-15] MEDS: Potassium Chloride Riders 10 MEQ in Premix Bag 1 BAG IV SCH ×3 (10:10→21:26)
--- NOTE | 2021-03-15 10:20 | PCM.HP.2 ---
H&P History of Present Illness - General Date of Service: 03/15/21 Admit Problem/Dx: Admission Diagnosis/Problem Admission Diagnosis/Problem Acute hypokalemia Source of Information: Patient History Limitations: Reports: No Limitations - History of Present Illness Initial Comments - Free Text/Narative: patient was admitted to the floor for management of severe dehydration and hypokalemia initially presented to the ER with due to lack of PO intake and jaundice for 1 week - also weight loss - around 20 lbs over a month or so. In the ER, labs and images were ordered. Significant for elevation in LFTs and bilirubin. Also very low K level. CT images showed a pancreatic mass - possible adenocarcinoma. Was admitted to the floor for hydration and K correction. Right Lower Abdomen Pain Score (Numeric/FACES): 1 - Related Data Allergies/Adverse Reactions: Allergies Allergy/AdvReac Type Severity Reaction Status Date / Time No Known Allergies Allergy Verified 03/14/21 16:21 Home Medications: Home Meds Apixaban [Eliquis] 5 mg PO BID 04/30/18 [History] atorvaSTATin [Lipitor] 40 mg PO BEDTIME 06/23/18 [History] Acetaminophen [Tylenol Arthritis Pain] 650 mg PO Q4H PRN tab.er 07/03/18 [Rx] Clopidogrel [Plavix] 75 mg PO DAILY tablet 07/03/18 [Rx] Levothyroxine Sodium [Synthroid] 100 mcg PO ACBREAKFAST 30 Days #30 tab 07/03/18 [Rx] Nitroglycerin [Nitrostat] 0.4 mg SL Q5M PRN tab.sl 07/03/18 [Rx] Tamsulosin [Flomax] 0.4 mg PO BEDTIME 30 Days #30 cap.er 07/03/18 [Rx] Famotidine [Pepcid] 20 mg PO BID 10/02/18 [History] Potassium Chloride [Klor-Con] 20 meq PO ASDIRECTED 10/02/18 [History] Aspirin 81 mg PO DAILY 03/14/21 [History] Bumetanide [Bumex] 1 mg PO ASDIRECTED 03/14/21 [History] Metoprolol Tartrate 25 mg PO BID 03/14/21 [History] timoloL maleate [Timoptic 0.25% Ophth Soln] 1 drop EYELF BEDTIME 03/14/21 [History] Past Medical History HEENT History: Reports: Glaucoma, Impaired Vision Cardiovascular History: Reports: Afib, Bypass, High Cholesterol, Hypertension, [place], Pacemaker Other Cardiovascular History: 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 Headaches Endocrine/Metabolic History: Reports: Hypoparathyroidism Hematologic History: Reports: Anticoagulation Therapy Oncologic (Cancer) History: Reports: None Dermatologic History: Reports: Other (See Below) Other Dermatologic History: scabbed rash on chest and left arm - Infectious Disease History Infectious Disease History: Reports: Chicken Pox, Shingles - Past Surgical History HEENT Surgical History: Reports: None Cardiovascular Surgical History: Reports: Coronary Artery Bypass, Coronary Artery Stent, Pacer Other Cardiovascular Surgeries/Procedures: 1992 GI Surgical History: Reports: None Neurological Surgical History: Reports: Lumbar Spine, Thoracic Spine Other Neurological Surgeries/Procedures: B feet: decrease in sensation, no pain in LEs Musculoskeletal Surgical History: Reports: Other (See Below) Other Musculoskeletal Surgeries/Procedures:: laminectomy Dermatological Surgical History: Reports: None Social & Family History - Family History Family Medical History: No Pertinent Family History - Tobacco Use Tobacco Use Status *Q: Never Tobacco User Second Hand Smoke Exposure: No - Caffeine Use Caffeine Use: Reports: Coffee - Recreational Drug Use Recreational Drug Use: No H&P Review of Systems - Review of Systems: Review Of Systems: See Below General: Reports: Malaise, Fatigue HEENT: Reports: No Symptoms Pulmonary: Reports: No Symptoms Cardiovascular: Reports: No Symptoms Gastrointestinal: Reports: Anorexia Genitourinary: Reports: No Symptoms Skin: Reports: Jaundice Psychiatric: Reports: No Symptoms Neurological: Reports: No Symptoms Exam - Exam Exam: See Below - Vital Signs Vital Signs: Last Vital Signs Temp 36.4 C 03/15/21 08:00 Pulse 91 03/15/21 08:10 Resp 18 03/15/21 08:00 BP 108/75 03/15/21 08:10 Pulse Ox 96 03/15/21 08:00 Weight: 66.678 kg - Exam General: Alert, Oriented HEENT: PERRLA Lungs: Clear to Auscultation, Normal Respiratory Effort Cardiovascular: Regular Rate, Regular Rhythm GI/Abdominal Exam: Normal Bowel Sounds, Soft, Non-Tender Skin: Other (jaundice) Neuro Extensive - Mental Status: Alert, Oriented x3, Normal Mood/Affect Psychiatric: Alert, Normal Affect, Normal Mood - Patient Data Lab Results Last 24 hrs: Laboratory Results - last 24 hr 03/14/21 03/14/21 03/14/21 Range/Units 12:51 13:00 13:00 WBC 6.7 (4.0-11.0) K/uL RBC 3.98 L (4.50-6.50) M/uL Hgb 12.7 L (13.0-18.0) g/dL Hct 35.9 L (40.0-54.0) % MCV 90 (76-96) fL MCH 31.9 (27.0-32.0) pg MCHC 35.4 H (31.0-35.0) g/dL RDW 16.4 H (11.0-16.0) % Plt Count 209 D (150-400) K/uL MPV 12.5 H (6.0-10.0) fL Sodium (136-145) mmol/L Potassium (3.5-5.1) mmol/L Chloride (98-107) mmol/L Carbon Dioxide (21.0-32.0) mmol/L Anion Gap (5.0-15.0) mmol/L BUN (8-26) mg/dL Creatinine (0.70-1.30) mg/dL Est Cr Clr Drug Dosing mL/min Estimated GFR (MDRD) (>60) MLS/MIN BUN/Creatinine Ratio (6-25) Glucose (74-100) mg/dL Calcium (8.5-10.1) mg/dL Magnesium (1.8-2.4) mg/dL Total Bilirubin (0.0-1.0) mg/dL Direct Bilirubin (0.0-0.3) mg/dL AST (15-37) U/L ALT (12-78) U/L Alkaline Phosphatase (46-116) U/L B-Natriuretic Peptide (0-450) pg/mL Total Protein (6.4-8.2) g/dL Albumin (3.4-5.0) g/dL Globulin (2.2-4.2) g/dL Albumin/Globulin Ratio (0.8-2.0) Lipase 756 H* (73-393) U/L Urine Color Yellow Urine Appearance Clear (CLEAR) Urine pH 6.5 (5.0-8.0) Ur Specific [place] 1.020 (1.003-1.030) Urine Protein 100 H (NEGATIVE) mg/dL Urine Glucose (UA) Negative (NEGATIVE) mg/dL Urine Ketones Negative (NEGATIVE) mg/dL Urine Occult Blood Moderate H (NEGATIVE) Urine Nitrite Negative (NEGATIVE) Urine Bilirubin Moderate H (NEGATIVE) Urine Urobilinogen 2.0 H (0.2-1.0) E.U./dL Ur Leukocyte Esterase Negative (NEGATIVE) U Hyaline Cast (Auto) Few /HPF Urine RBC 10-20 H /HPF Urine WBC 0-5 H /HPF Ur Squamous Epith Cells Moderate /HPF SARS-CoV-2 RNA (PAULINA) (NEGATIVE) 03/14/21 03/14/21 03/14/21 Range/Units 13:00 13:00 13:00 WBC (4.0-11.0) K/uL RBC (4.50-6.50) M/uL Hgb (13.0-18.0) g/dL Hct (40.0-54.0) % MCV (76-96) fL MCH (27.0-32.0) pg MCHC (31.0-35.0) g/dL RDW (11.0-16.0) % Plt Count (150-400) K/uL MPV (6.0-10.0) fL Sodium 141 (136-145) mmol/L Potassium 2.1 L* D (3.5-5.1) mmol/L Chloride 99 (98-107) mmol/L Carbon Dioxide 32.3 H (21.0-32.0) mmol/L Anion Gap 11.8 (5.0-15.0) mmol/L BUN 19 (8-26) mg/dL Creatinine 1.57 H D (0.70-1.30) mg/dL Est Cr Clr Drug Dosing 31.01 mL/min Estimated GFR (MDRD) 42 L (>60) MLS/MIN BUN/Creatinine Ratio 12.1 (6-25) Glucose 151 H D (74-100) mg/dL Calcium 8.8 (8.5-10.1) mg/dL Magnesium 2.0 (1.8-2.4) mg/dL Total Bilirubin 5.3 H D (0.0-1.0) mg/dL Direct Bilirubin 4.1 H (0.0-0.3) mg/dL AST 140 H (15-37) U/L ALT 120 H (12-78) U/L Alkaline Phosphatase 391 H (46-116) U/L B-Natriuretic Peptide 5462 H D (0-450) pg/mL Total Protein 7.5 (6.4-8.2) g/dL Albumin 2.5 L (3.4-5.0) g/dL Globulin 5.0 H (2.2-4.2) g/dL Albumin/Globulin Ratio 0.5 L (0.8-2.0) Lipase (73-393) U/L Urine Color Urine Appearance (CLEAR) Urine pH (5.0-8.0) Ur Specific [place] (1.003-1.030) Urine Protein (NEGATIVE) mg/dL Urine Glucose (UA) (NEGATIVE) mg/dL Urine Ketones (NEGATIVE) mg/dL Urine Occult Blood (NEGATIVE) Urine Nitrite (NEGATIVE) Urine Bilirubin (NEGATIVE) Urine Urobilinogen (0.2-1.0) E.U./dL Ur Leukocyte Esterase (NEGATIVE) U Hyaline Cast (Auto) /HPF Urine RBC /HPF Urine WBC /HPF Ur Squamous Epith Cells /HPF SARS-CoV-2 RNA ([place]) (NEGATIVE) 03/14/21 03/15/21 Range/Units 15:55 09:15 WBC (4.0-11.0) K/uL RBC (4.50-6.50) M/uL Hgb (13.0-18.0) g/dL Hct (40.0-54.0) % MCV (76-96) fL MCH (27.0-32.0) pg MCHC (31.0-35.0) g/dL RDW (11.0-16.0) % Plt Count (150-400) K/uL MPV (6.0-10.0) fL Sodium 142 (136-145) mmol/L Potassium 2.3 L* (3.5-5.1) mmol/L Chloride 102 (98-107) mmol/L Carbon Dioxide 31.3 (21.0-32.0) mmol/L Anion Gap 11.0 (5.0-15.0) mmol/L BUN 14 D (8-26) mg/dL Creatinine 1.19 D (0.70-1.30) mg/dL Est Cr Clr Drug Dosing 40.91 mL/min Estimated GFR (MDRD) 58 L (>60) MLS/MIN BUN/Creatinine Ratio 11.8 (6-25) Glucose 148 H (74-100) mg/dL Calcium 8.5 (8.5-10.1) mg/dL Magnesium (1.8-2.4) mg/dL Total Bilirubin (0.0-1.0) mg/dL Direct Bilirubin (0.0-0.3) mg/dL AST (15-37) U/L ALT (12-78) U/L Alkaline Phosphatase (46-116) U/L B-Natriuretic Peptide (0-450) pg/mL Total Protein (6.4-8.2) g/dL Albumin (3.4-5.0) g/dL Globulin (2.2-4.2) g/dL Albumin/Globulin Ratio (0.8-2.0) Lipase (73-393) U/L Urine Color Urine Appearance (CLEAR) Urine pH (5.0-8.0) Ur Specific [place] (1.003-1.030) Urine Protein (NEGATIVE) mg/dL Urine Glucose (UA) (NEGATIVE) mg/dL Urine Ketones (NEGATIVE) mg/dL Urine Occult Blood (NEGATIVE) Urine Nitrite (NEGATIVE) Urine Bilirubin (NEGATIVE) Urine Urobilinogen (0.2-1.0) E.U./dL Ur Leukocyte Esterase (NEGATIVE) U Hyaline Cast (Auto) /HPF Urine RBC /HPF Urine WBC /HPF Ur Squamous Epith Cells /HPF SARS-CoV-2 RNA ([place]UL[place]) Negative (NEGATIVE) Result Diagrams: 03/14/21 13:00 03/15/21 09:15 Sepsis Event Note - Evaluation Sepsis Screening Result: No Definite Risk - Focused Exam Vital Signs: Vital Signs Temp Pulse Pulse Resp BP BP Pulse Ox 03/15/21 08:10 91 108/75 03/15/21 08:00 36.4 C 91 18 108/75 96 03/15/21 04:03 36.6 C 14 112/74 95 03/15/21 00:00 16 - Problem List (1) Acute hypokalemia SNOMED Code(s): 74046056 ICD Code: E87.6 - HYPOKALEMIA Status: Acute Priority: Medium Current Visit: No (2) Dehydration SNOMED Code(s): 49659910 ICD Code: E86.0 - DEHYDRATION Status: Acute Priority: Medium Current Visit: No (3) Jaundice SNOMED Code(s): 46733476 ICD Code: R17 - UNSPECIFIED JAUNDICE Status: Acute Priority: Medium Current Visit: No (4) Pancreatic cancer SNOMED Code(s): 355655192 ICD Code: C25.9 - MALIGNANT NEOPLASM OF PANCREAS, UNSPECIFIED Status: Acute Priority: Medium Current Visit: No Qualifiers: Pancreatic malignancy location: body of pancreas Qualified Code(s): C25.1 - Malignant neoplasm of body of pancreas Problem List Initiated/Reviewed/Updated: Yes Orders Last 24hrs: Active Orders 24 hr Category Date Time Status Patient Status [ADT] Routine ADT 03/14/21 14:51 Active Oxygen Therapy [RC] PRN Care 03/14/21 14:51 Active Telemetry Monitoring [Cardiac Monitoring] [RC] 08,20 Care 03/14/21 19:05 Active Vital Signs [RC] 00,04,08,12,16,20 Care 03/14/21 14:51 Active Regular Diet [DIET] Diet 03/14/21 Dinner Ordered Abdomen Pelvis wo Cont [CT] Stat Exams 03/14/21 13:46 Taken CULTURE MRSA [RM] Routine Lab 03/14/21 16:31 Received Apixaban [Eliquis] Med 03/14/21 20:00 Active 5 mg PO BID Aspirin Med 03/15/21 08:00 Active 81 mg PO DAILY Famotidine [Pepcid] Med 03/14/21 20:00 Active 20 mg PO BID Lactated Ringers [Ringers, Lactated] 1,000 ml Med 03/14/21 15:15 Active IV ASDIRECTED Levothyroxine [Synthroid] Med 03/15/21 07:00 Active 100 mcg PO ACBREAKFAST Metoprolol Tartrate [Lopressor] Med 03/14/21 20:00 Active 25 mg PO BID Patient's Own Medication [Ptom] Med 03/14/21 20:00 Active 0 each EYELF BEDTIME Potassium Chloride Riders [KCl in Water 10 MEQ/50 ML] Med 03/15/21 10:00 Active 10 meq Premix Bag 1 bag IV Q6H Potassium Chloride [Klor-Con 10] Med 03/14/21 20:00 Active 10 meq PO BEDTIME Sodium Chloride 0.9% [Saline Flush] Med 03/14/21 19:13 Active 10 ml FLUSH ASDIRECTED PRN Tamsulosin [Flomax] Med 03/14/21 20:00 Active 0.4 mg PO BEDTIME atorvaSTATin [Lipitor] Med 03/14/21 20:00 Active 40 mg PO BEDTIME Peripheral IV Insertion Adult [OM.PC] Routine Oth 03/14/21 19:13 Ordered Resuscitation Status Routine Resus Stat 03/14/21 21:23 Ordered Medication Orders Apixaban (Apixaban 5 Mg Tab) 5 mg PO BID [facility] Last Admin: 03/15/21 08:10 Dose: 5 mg Documented by: Admin: 03/14/21 19:35 Dose: 5 mg Documented by: ANASTASIYA Aspirin (Aspirin 81 Mg Tab.Chew) 81 mg PO DAILY [facility] Last Admin: 03/15/21 08:10 Dose: 81 mg Documented by: ANNETTA Atorvastatin Calcium (Atorvastatin 40 Mg Tab) 40 mg PO BEDTIME [facility] Last Admin: 03/14/21 19:34 Dose: 40 mg Documented by: ANASTASIYA Famotidine (Famotidine 20 Mg Tab) 20 mg PO BID [facility] Last Admin: 03/15/21 08:09 Dose: 20 mg Documented by: Admin: 03/14/21 19:35 Dose: 20 mg Documented by: ANASTASIYA Lactated Ringer's (Ringers, Lactated) 1,000 mls @ 100 mls/hr IV ASDIRECTED [facility] Last Admin: 03/15/21 04:11 Dose: 100 mls/hr Documented by: Infusion: 03/15/21 04:11 Dose: 100 mls/hr Documented by: Admin: 03/14/21 18:41 Dose: 100 mls/hr Documented by: ANNETTA Potassium Chloride 10 meq/ (Premix) 50 mls @ 50 mls/hr IV Q6H [facility] Stop: 03/16/21 10:59 Last Admin: 03/15/21 10:10 Dose: 50 mls/hr Documented by: ANNETTA Levothyroxine Sodium (Levothyroxine 100 Mcg Tab) 100 mcg PO ACBREAKFAST [facility] Last Admin: 03/15/21 06:24 Dose: 100 mcg Documented by: ANASTASIYA Metoprolol Tartrate (Metoprolol Tartrate 25 Mg Tab) 25 mg PO BID [facility] Last Admin: 03/15/21 08:10 Dose: 25 mg Documented by: Admin: 03/14/21 19:34 Dose: 25 mg Documented by: ANASTASIYA Patient's Own MedicationTimolol 0.25% Ophth Soln 0 each EYELF BEDTIME [facility] Last Admin: 03/14/21 20:45 Dose: 1 each Documented by: ANASTASIYA Potassium Chloride (Potassium Chloride 10 Meq Tab.Er) 10 meq PO BEDTIME [facility] Last Admin: 03/14/21 19:34 Dose: 10 meq Documented by: ANASTASIYA Sodium Chloride (Sodium Chloride 0.9% 10 Ml Syringe) 10 ml FLUSH ASDIRECTED PRN PRN Reason: Keep Vein Open Tamsulosin HCl (Tamsulosin 0.4 Mg Cap.Er) 0.4 mg PO BEDTIME [facility] Last Admin: 03/14/21 19:34 Dose: 0.4 mg Documented by: ANASTASIYA Assessment/Plan Comment:: 1- dehydration: gentle IVF hydration due to a h/o CFH 2- Acute hypokalemia: K replacement bu IV and PO daily labs check 3- jaundice: 2/2 pancreatic CA. Will contact cancer center In [place] on Tuesday for arrangement. Plavix was held for anticipation of ERCP/biopsy procedure. but still on Eliquis. Has a pacemaker. 4- weight loss and cachexia: 2/2 above 5- h/o CHF: resume home meds as before anticipate another 24-36hrs in the hospital - Mortality Measure Prognosis:: Good
--- NOTE | 2021-03-15 10:39 | CT ---
Date of Service: 03/14/21 Clinical Data: jaundice / weight loss UNENHANCED ABDOMEN AND PELVIC CT: Multislice acquisition through the abdomen and pelvis without IV or oral contrast was performed. No priors. There are emphysematous changes in both lower lungs with atelectatic changes in both lung bases. The heart is enlarged. Patient is status pos coronary artery bypass grafting. There is diffuse gastric wall thickening. This is probably related to nondistention. Gastritis should be considered. The liver is normal size. There are multiple subcentimeter low density lesions within the liver. These may be multiple cysts. Through density metastatic disease should at least be considered. The gallbladder is mildly distended. No calcified gallstones. No pericholecystic fluid. There is marked intrahepatic biliary duct dilatation. The common bile duct is also dilated and measures 1.4 cm in diameter. A distal obstruction is suspected. There is atrophy of the pancreas. There is a masslike lesion noted within the body of the pancreas measuring 2.6 cm in diameter. Pancreatic carcinoma should be considered. No pancreatic duct dilatation. The right and left adrenals appear normal. The right and left kidneys are mildly atrophic, otherwise normal. No nephrocalcinosis or nephrolithiasis. No hydronephrosis or hydroureter. The bladder is fluid filled. It appears normal. The prostate is enlarged. There are calcifications within the prostate consistent with chronic prostatitis. There are scattered air-fluid levels within the small bowel and colon. No dilated loops of bowel. Enterocolitis should be considered No evidence of appendicitis. No free air. No free fluid. No adenopathy. No dilated loops of bowel. There is degenerative disk disease throughout the thoracic and lumbar spine . IMPRESSION: Abnormal exam. See above. [id number] MTDD
[2021-03-15] MEDS: Potassium Chloride 10 MEQ Tab.ER PO SCH (19:37)
[2021-03-15] MEDS: Tamsulosin 0.4 MG Cap.ER PO SCH (19:38)
[2021-03-15] MEDS: atorvaSTATin 40 MG Tab PO SCH (19:38)
[2021-03-15] MEDS: TIMOLOL 0.25% EYELF SCH (19:38)
[2021-03-16] MEDS ORDERED: Potassium Chloride Riders 50 ML ONE (03:55)
[2021-03-16] MEDS: Potassium Chloride Riders 10 MEQ in Premix Bag 1 BAG IV SCH (04:00)
[2021-03-16] MEDS: Levothyroxine 100 MCG Tab PO SCH (06:08)
[2021-03-16] MEDS: Famotidine 20 MG Tab PO SCH (08:10)
[2021-03-16] MEDS: Aspirin 81 MG Tab.Chew PO SCH (08:10)
[2021-03-16] MEDS: Apixaban 5 MG Tab PO SCH (08:10)
[2021-03-16] MEDS: Metoprolol Tartrate 25 MG Tab PO SCH (08:11)
[2021-03-16 08:28] VITALS: BP 124/80; PULSE 86
[2021-03-16] MEDS ORDERED: Potassium Chloride Riders 50 ML IV SCH (10:00)
[2021-03-16] MEDS ORDERED: Potassium Chloride 20 MEQ Tab.ER PO ONE (11:33)
--- NOTE | 2021-03-16 21:58 | DISCH ---
HOSPITAL COURSE: An 85-year-old male was admitted, with jaundice, abdominal pain, hypokalemia, and dehydration. His potassium level started out at 2.1. He did go up to normal yesterday, but today it dropped back from 3.2 down to 2.6. The patient is feeling better. He has been rehydrated. CT of the abdomen shows a pancreatic mass. The patient's appetite and activity levels have been improving since being admitted. Oncology was consulted this morning and they will receive all of his information by fax and will contact the patient to schedule an appointment for further workup involving the pancreatic mass. The patient wants to go home today and I feel this is reasonable. He will be discharged on K-Dur 40 mEq b.i.d. for 2 days. He is to come back for a recheck basic metabolic panel in 2 days. He is to go home and rest. Activity as tolerated. PHYSICAL EXAMINATION: VITAL SIGNS: Today are good. He is afebrile. Blood pressure 124/80, pulse 86, O2 sats 96% on room air. LUNGS: Clear. CARDIAC: Heart sounds distinct without murmurs. ABDOMEN: Soft, nontender. SKIN: Warm and dry and just slightly jaundiced at this point. The patient is happy about being discharged. He is here with one of his daughters at this point. They have no further questions and agree to await the phone call from Oncology. RADHA/MODL /[id number]
== END 2021-03-16 12:20 | disposition home or self-care (01) ==
LOC: LB.ED 12:46 → LB.MS 15:53
PROVIDERS: ADMIT Surgery; ATTEND Surgery
DX: E86.0 Dehydration (principal); E87.6 Hypokalemia; R17 Unspecified jaundice; E78.00 Pure hypercholesterolemia, unspecified; I10 Essential (primary) hypertension; I25.2 Old myocardial infarction; J44.9 Chronic obstructive pulmonary disease, unspecified; Z95.1 Presence of aortocoronary bypass graft; E20.9 Hypoparathyroidism, unspecified; C25.1 Malignant neoplasm of body of pancreas; Z79.82 Long term (current) use of aspirin; Z79.890 Hormone replacement therapy; Z79.899 Other long term (current) drug therapy; Z20.822 Contact with and (suspected) exposure to COVID-19
CPT/HCPCS: 36415; 74176; 80048; 80053; 81001; 82248; 83690; 83735; 83880; 85027; 87070; 96365; 96366; 99285-25; A9270-GY; G0378; J3480; J7120; U0002

== ENCOUNTER 2021-04-21 08:11 | Inpatient (IN) | payer MEDICARE ==
--- NOTE | 2021-04-21 09:57 | EDM.PDOC ---
ED HPI GENERAL MEDICAL PROBLEM - General Chief Complaint: Chest Pain Stated Complaint: FELL / HIT HEAD ON CONCRETE Time Seen by Provider: 04/21/21 08:39 Source of Information: Reports: EMS - History of Present Illness INITIAL COMMENTS - FREE TEXT/NARRATIVE: Pt presented to ED by EMS, after a fall from toilet, due to multiple defibrillations by his ICD/pacer. Per EMS 6 defibrillations prior to EMS arrival on seen and one in their presence. Pt had a LOC and struck his head. Onset: Sudden Onset Date: 04/21/21 Onset Time: 08:00 (approx) Location: Reports: Head, Chest Quality: Reports: Other (Electrical shocks from ICD) Severity: Severe Context: Reports: Trauma Associated Symptoms: Reports: Syncope - Related Data Allergies Allergy/AdvReac Type Severity Reaction Status Date / Time No Known Allergies Allergy Verified 04/21/21 12:56 Home Meds: Home Meds Apixaban [Eliquis] 5 mg PO BID 04/30/18 [History] atorvaSTATin [Lipitor] 40 mg PO BEDTIME 06/23/18 [History] Acetaminophen [Tylenol Arthritis Pain] 650 mg PO Q4H PRN tab.er 07/03/18 [Rx] Clopidogrel [Plavix] 75 mg PO DAILY tablet 07/03/18 [Rx] Levothyroxine Sodium [Synthroid] 100 mcg PO ACBREAKFAST 30 Days #30 tab 07/03/18 [Rx] Nitroglycerin [Nitrostat] 0.4 mg SL Q5M PRN tab.sl 07/03/18 [Rx] Tamsulosin [Flomax] 0.4 mg PO BEDTIME 30 Days #30 cap.er 07/03/18 [Rx] Famotidine [Pepcid] 20 mg PO BID 10/02/18 [History] Potassium Chloride [Klor-Con] 40 meq PO BID 10/02/18 [History] Aspirin 81 mg PO DAILY 03/14/21 [History] Bumetanide [Bumex] 1 mg PO ASDIRECTED 03/14/21 [History] Metoprolol Tartrate 25 mg PO BID 03/14/21 [History] timoloL maleate [Timoptic 0.25% Ophth Soln] 1 drop EYELF BEDTIME 03/14/21 [History] Past Medical History HEENT History: Reports: Glaucoma, Impaired Vision Cardiovascular History: Reports: Afib, Bypass, High Cholesterol, Hypertension, [place], Pacemaker Other Cardiovascular History: 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 Headaches Endocrine/Metabolic History: Reports: Hypoparathyroidism Hematologic History: Reports: Anticoagulation Therapy Oncologic (Cancer) History: Reports: None Dermatologic History: Reports: Other (See Below) Other Dermatologic History: scabbed rash on chest and left arm - Infectious Disease History Infectious Disease History: Reports: Chicken Pox, Shingles - Past Surgical History HEENT Surgical History: Reports: None Cardiovascular Surgical History: Reports: Coronary Artery Bypass, Coronary Artery Stent, Pacer Other Cardiovascular Surgeries/Procedures: 1992 GI Surgical History: Reports: None Neurological Surgical History: Reports: Lumbar Spine, Thoracic Spine Other Neurological Surgeries/Procedures: B feet: decrease in sensation, no pain in LEs Musculoskeletal Surgical History: Reports: Other (See Below) Other Musculoskeletal Surgeries/Procedures:: laminectomy Dermatological Surgical History: Reports: None Social & Family History - Family History Family Medical History: No Pertinent Family History - Caffeine Use Caffeine Use: Reports: Coffee ED ROS GENERAL - Review of Systems Review Of Systems: See Below Constitutional: Reports: Malaise, Weakness HEENT: Reports: No Symptoms Respiratory: Reports: No Symptoms Cardiovascular: Reports: Other (discomfort from defib) Endocrine: Reports: No Symptoms GI/Abdominal: Reports: No Symptoms : Reports: No Symptoms Musculoskeletal: Reports: No Symptoms Skin: Reports: Pallor Neurological: Reports: No Symptoms Psychiatric: Reports: No Symptoms Hematologic/Lymphatic: Reports: No Symptoms Immunologic: Reports: No Symptoms ED EXAM, GENERAL - Physical Exam Exam: See Below Free Text/Narrative:: Upon arrival pt arrived in the ED looking very pale, but AO x 3 GCS 456. Speaking in 2-3 word sentences without difficulty. Pt EKG show intermittent long runs of VTACH. Exam Limited By: No Limitations General Appearance: Alert, WD/WN, Mild Distress Eye Exam: Bilateral Eye: EOMI, PERRL Ears: Normal External Exam, Hearing Grossly Normal Ear Exam: Bilateral Ear: Auricle Normal Nose: Normal Inspection, No Blood Throat/Mouth: Normal Lips, Normal Voice Head: Normocephalic, Other (2" abrasion above left eyebrow) Neck: Normal Inspection, Supple, Non-Tender, Full Range of Motion Respiratory/Chest: No Respiratory Distress, Lungs Clear, Normal Breath Sounds, No Accessory Muscle Use, Chest Non-Tender Cardiovascular: Tachycardia, Extra Beats, Other (paced rhythm) Peripheral Pulses: 2+: Carotid (L), Carotid (R), Radial (L), Radial (R) GI/Abdominal: Soft, Non-Tender, No Organomegaly, No Distention, No Mass (Male) Exam: Other (NA) Rectal (Males) Exam: Other (NA) Back Exam: Other (visually normal) Extremities: Other (Rt ankle swelling and pain) Neurological: Alert, Oriented, Normal Cognition Psychiatric: Normal Affect, Normal Mood Skin Exam: Dry, Cool, Pallor Lymphatic: No Adenopathy ED CARDIOLOGY PROCEDURES - Additional/Other Procedure(s) Other (Free Text) Procedure(s): Subclavian central line was place by Olayinka COHEN and Mario DOMINGO, xray was obtained to confirm proper position. #1 Interpretation Rhythm: Other (Runs of VTACH) EKG Interpretation Comments: NSR, VTACH, and paced all occurring intermittently Course - Orders/Labs/Meds Orders: Active Orders 24 hr Category Date Time Status Patient Status Manage Transfer [TRANSFER] Routine ADT 04/21/21 14:13 Active Ankle Min 3V Rt [CR] Stat Exams 04/21/21 14:49 Ordered Chest 1V Frontal [CR] Stat Exams 04/21/21 13:56 Taken Amiodarone [Cordarone] 450 mg Med 04/21/21 12:15 Active Dextrose 5% in Water 250 ml IV ASDIRECTED Resuscitation Status Routine Resus Stat 04/21/21 14:23 Ordered Medication Orders Amiodarone HCl 450 mg/ (Dextrose/Water) 259 mls @ 33.3 mls/hr IV ASDIRECTED BITA Last Admin: 04/21/21 12:32 Dose: 41.37 mls/hr Documented by: MARK Labs: Laboratory Tests 04/21/21 04/21/21 04/21/21 Range/Units 09:28 09:28 11:15 WBC 5.9 (4.0-11.0) K/uL RBC 3.39 L (4.50-6.50) M/uL Hgb 11.1 L (13.0-18.0) g/dL Hct 34.9 L (40.0-54.0) % MCV 103 H (76-96) fL MCH 32.7 H (27.0-32.0) pg MCHC 31.8 (31.0-35.0) g/dL RDW 15.5 (11.0-16.0) % Plt Count 291 D (150-400) K/uL MPV 10.9 H (6.0-10.0) fL Neut % (Auto) 73.0 H (45.0-70.0) % Lymph % (Auto) 12.2 L (20.0-40.0) % [place] % (Auto) 9.3 (3.0-10.0) % Eos % (Auto) 5.2 H (1.0-5.0) % Baso % (Auto) 0.3 (0.0-0.5) % Neut # (Auto) 4.32 (2.00-7.50) K/uL Lymph # (Auto) 0.72 L (1.50-4.00) K/uL [place] # (Auto) 0.55 (0.20-0.80) K/uL Eos # (Auto) 0.31 (0.04-0.40) K/uL Baso # (Auto) 0.02 (0.02-0.10) K/uL Sodium 143 (136-145) mmol/L Potassium 3.5 (3.5-5.1) mmol/L Chloride 110 H (98-107) mmol/L Carbon Dioxide 23.9 (21.0-32.0) mmol/L Anion Gap 12.6 (5.0-15.0) mmol/L BUN 8 D (8-26) mg/dL Creatinine 0.86 D (0.70-1.30) mg/dL Est Cr Clr Drug Dosing TNP Estimated GFR (MDRD) > 60 (>60) MLS/MIN BUN/Creatinine Ratio 9.3 (6-25) Glucose 123 H (74-100) mg/dL Calcium 8.7 (8.5-10.1) mg/dL Total Bilirubin 1.2 H D (0.0-1.0) mg/dL AST 19 (15-37) U/L ALT 18 (12-78) U/L Alkaline Phosphatase 99 (46-116) U/L Troponin I 0.112 H* D (0.000-0.060) ng/mL Total Protein 6.9 (6.4-8.2) g/dL Albumin 2.5 L (3.4-5.0) g/dL Globulin 4.4 H (2.2-4.2) g/dL Albumin/Globulin Ratio 0.6 L (0.8-2.0) Urine Color Yellow Urine Appearance Clear (CLEAR) Urine pH 5.5 (5.0-8.0) Ur Specific [place] >= 1.030 (1.003-1.030) Urine Protein 30 H (NEGATIVE) mg/dL Urine Glucose (UA) Negative (NEGATIVE) mg/dL Urine Ketones Negative (NEGATIVE) mg/dL Urine Occult Blood Negative (NEGATIVE) Urine Nitrite Negative (NEGATIVE) Urine Bilirubin Negative (NEGATIVE) Urine Urobilinogen 0.2 (0.2-1.0) E.U./dL Ur Leukocyte Esterase Negative (NEGATIVE) Urine RBC 0-5 H /HPF Urine WBC 0-5 H /HPF Ur Squamous Epith Cells Few /HPF SARS-CoV-2 RNA ([place]) (NEGATIVE) 04/21/21 Range/Units 11:30 WBC (4.0-11.0) K/uL RBC (4.50-6.50) M/uL Hgb (13.0-18.0) g/dL Hct (40.0-54.0) % MCV (76-96) fL MCH (27.0-32.0) pg MCHC (31.0-35.0) g/dL RDW (11.0-16.0) % Plt Count (150-400) K/uL MPV (6.0-10.0) fL Neut % (Auto) (45.0-70.0) % Lymph % (Auto) (20.0-40.0) % [place] % (Auto) (3.0-10.0) % Eos % (Auto) (1.0-5.0) % Baso % (Auto) (0.0-0.5) % Neut # (Auto) (2.00-7.50) K/uL Lymph # (Auto) (1.50-4.00) K/uL [place] # (Auto) (0.20-0.80) K/uL Eos # (Auto) (0.04-0.40) K/uL Baso # (Auto) (0.02-0.10) K/uL Sodium (136-145) mmol/L Potassium (3.5-5.1) mmol/L Chloride (98-107) mmol/L Carbon Dioxide (21.0-32.0) mmol/L Anion Gap (5.0-15.0) mmol/L BUN (8-26) mg/dL Creatinine (0.70-1.30) mg/dL Est Cr Clr Drug Dosing Estimated GFR (MDRD) (>60) MLS/MIN BUN/Creatinine Ratio (6-25) Glucose (74-100) mg/dL Calcium (8.5-10.1) mg/dL Total Bilirubin (0.0-1.0) mg/dL AST (15-37) U/L ALT (12-78) U/L Alkaline Phosphatase (46-116) U/L Troponin I (0.000-0.060) ng/mL Total Protein (6.4-8.2) g/dL Albumin (3.4-5.0) g/dL Globulin (2.2-4.2) g/dL Albumin/Globulin Ratio (0.8-2.0) Urine Color Urine Appearance (CLEAR) Urine pH (5.0-8.0) Ur Specific [place] (1.003-1.030) Urine Protein (NEGATIVE) mg/dL Urine Glucose (UA) (NEGATIVE) mg/dL Urine Ketones (NEGATIVE) mg/dL Urine Occult Blood (NEGATIVE) Urine Nitrite (NEGATIVE) Urine Bilirubin (NEGATIVE) Urine Urobilinogen (0.2-1.0) E.U./dL Ur Leukocyte Esterase (NEGATIVE) Urine RBC /HPF Urine WBC /HPF Ur Squamous Epith Cells /HPF SARS-CoV-2 RNA ([place]) Negative (NEGATIVE) Meds: Medications Generic Name Dose Route Start Last Admin Trade Name Freq PRN Reason Stop Dose Admin Amiodarone HCl 450 mg/ 259 mls @ 33.3 mls/hr 04/21/21 12:15 04/21/21 12:32 Dextrose/Water IV 41.37 mls/hr ASDIRECTED BITA Administration Discontinued Medications Generic Name Dose Route Start Last Admin Trade Name Freq PRN Reason Stop Dose Admin Amiodarone HCl 150 mg/ 53 mls @ 200 mls/hr 04/21/21 09:00 Dextrose/Water IV 04/21/21 12:00 ASDIRECTED BITA Departure - Departure Time of Disposition: 14:40 Disposition: Admitted As Inpatient 68 Condition: Good Clinical Impression: Ventricular tachyarrhythmia Instructions: Ventricular Tachycardia Referrals: PCP,None [Primary Care Provider] - Forms: ED Department Discharge - My Orders Last 24 Hours: My Active Orders 04/21/21 14:13 Patient Status Manage Transfer [TRANSFER] Routine 04/21/21 14:23 Resuscitation Status Routine 04/21/21 14:49 Ankle Min 3V Rt [CR] Stat - Assessment/Plan Last 24 Hours: My Active Orders 04/21/21 14:13 Patient Status Manage Transfer [TRANSFER] Routine 04/21/21 14:23 Resuscitation Status Routine 04/21/21 14:49 Ankle Min 3V Rt [CR] Stat Assessment:: Pt was treated for a fall from toilet and VTACH. Pt was given 150 mg of amiodarone in ED to address his freq runs of VTACH after consultation with EER via interosseous access. Pt was then started on a loading infusion plan per Dr. Lam [facility]. Amiodarone: 1mg/min for 6hr then 0.5mg/min 18hr then switch to oral tablets 400mg twice daily for 2 day, if tx tolerated well discharge patient to home on 400mg once daily. Plan: See above
--- NOTE | 2021-04-21 10:17 | CT ---
DATE OF SERVICE: 04/21/21 CLINICAL DATA: fall UNENHANCED BRAIN CT: Multislice axial acquisition was performed. No priors. There is diffuse atrophy. There are periventricular lucencies bilaterally consistent with small vessel ischemic change. No masses or mass effect. No intracranial hemorrhage. No evidence of acute or subacute infarct. There is mucosal thickening in the right maxillary, ethmoid, and left sphenoid sinuses. There is opacification of the right sphenoid sinus. These findings are consistent with sinus disease. No other significant findings. IMPRESSION: No acute intracranial abnormalities. [id number] [facility]
[2021-04-21] MEDS ORDERED: Amiodarone 450 MG in Dextrose 5% in Water 250 ML IV SCH ×2 (12:15)
[2021-04-21] MEDS ORDERED: Ketorolac 30 MG/ML SDV ONE (14:54)
[2021-04-21] MEDS ORDERED: Acetaminophen 325 MG Tab PO PRN (15:07)
[2021-04-21] MEDS ORDERED: Nitroglycerin 0.4 MG Tab.SL SL PRN (15:35)
[2021-04-21] MEDS ORDERED: Morphine Solution 10 MG/5 ML ML 100 ML Bottle PO PRN (15:35)
[2021-04-21] MEDS ORDERED: Ondansetron 4 MG Tab.DIS PO PRN (15:35)
[2021-04-21] MEDS ORDERED: Acetaminophen 650 MG Tab.ER PO PRN (15:35)
[2021-04-21] MEDS ORDERED: Bumetanide 1 MG Tab PO SCH (15:45)
[2021-04-21] MEDS ORDERED: Ketorolac 60 MG/2 ML SDV IVPUSH ONE (16:16)
[2021-04-21] MEDS: hydrOXYzine HCl 25 MG Tab PO SCH (17:40)
[2021-04-21] MEDS: Sodium Chloride 0.9% 1,000 ML IV SCH (19:00)
[2021-04-21] MEDS: atorvaSTATin 40 MG Tab PO SCH (21:11)
[2021-04-21] MEDS: Tamsulosin 0.4 MG Cap.ER PO SCH (21:11)
[2021-04-21] MEDS: Apixaban 5 MG Tab PO SCH (21:12)
[2021-04-21] MEDS: Metoprolol Tartrate 25 MG Tab PO SCH (21:12)
[2021-04-21] MEDS: Famotidine 20 MG Tab PO SCH (21:13)
--- NOTE | 2021-04-21 21:56 | CR ---
CLINICAL DATA: Right ankle pain. RIGHT ANKLE, 21 APRIL 2021: There is soft tissue swelling adjacent to the ankle joint. 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 There is a posterior calcaneal spur. No acute fracture or dislocation. There are vascular calcifications in the soft tissues. Job: [id number] [facility]
[2021-04-22] MEDS: Sodium Chloride 0.9% 1,000 ML IV SCH ×3 (05:00→18:15)
[2021-04-22] MEDS: TIMOLOL MALEATE EYELF SCH ×2 (05:43→20:34)
[2021-04-22] MEDS: hydrOXYzine HCl 25 MG Tab PO SCH ×5 (06:40→20:21)
[2021-04-22] MEDS: Levothyroxine 100 MCG Tab PO SCH (08:33)
[2021-04-22] MEDS: Famotidine 20 MG Tab PO SCH ×2 (08:33→20:21)
[2021-04-22] MEDS: Metoprolol Tartrate 25 MG Tab PO SCH ×2 (08:35→20:33)
[2021-04-22] MEDS: Apixaban 5 MG Tab PO SCH ×2 (08:35→20:21)
[2021-04-22] MEDS: Aspirin 81 MG Tab.Chew PO SCH (08:35)
[2021-04-22] MEDS: Amiodarone 200 MG Tab PO SCH ×2 (08:36→20:22)
--- NOTE | 2021-04-22 08:37 | CR ---
DATE OF SERVICE: 04/21/2021 CLINICAL DATA: Central line placement AP portable chest: Comparison is made to a prior exam dated 02 October 2018. The patient has taken a very poor inspiration. The cardiac pacer and pacer wires remain unchanged in position. The patient is status post median sternotomy. The heart remains enlarged, unchanged. There is calcification of the aortic arch. There is a right subclavian central venous catheter in place with its distal tip in the region of the right atrium. The lungs are clear. No pneumothorax. No pleural effusions. No areas of consolidation. MTDD
[2021-04-22] MEDS ORDERED: Potassium Chloride 20 MEQ Tab.ER ONE ×2 (08:50→08:52)
[2021-04-22] MEDS: Docusate Sodium 100 MG Cap PO SCH (11:59)
[2021-04-22] MEDS ORDERED: Morphine Oral Concentrate 20 MG/ML 30 ML Bottle PO SCH (13:15)
[2021-04-22] MEDS ORDERED: Morphine Oral Concentrate 20 MG/ML 30 ML Bottle PO PRN (17:08)
[2021-04-22] MEDS ORDERED: Bumetanide 1 MG Tab PO PRN (17:12)
[2021-04-22] MEDS ORDERED: Aluminum Hydroxide/Magnesium Hydroxide/Simethicone Susp 30 ML Cup PO PRN (17:27)
[2021-04-22] MEDS ORDERED: Aluminum Hydroxide/Magnesium Hydroxide/Simethicone Susp 30 ML Cup ONE (17:30)
[2021-04-22] MEDS ORDERED: Magnesium Hydroxide 400 MG/5 ML Susp 30 ML Cup PO PRN (17:57)
[2021-04-22] MEDS ORDERED: Magnesium Hydroxide 400 MG/5 ML Susp 30 ML Cup ONE (18:13)
[2021-04-22] MEDS: Potassium Chloride 20 MEQ Tab.ER PO SCH (20:21)
[2021-04-22] MEDS: Tamsulosin 0.4 MG Cap.ER PO SCH (20:21)
[2021-04-22] MEDS: atorvaSTATin 40 MG Tab PO SCH (20:22)
[2021-04-23] MEDS: Levothyroxine 100 MCG Tab PO SCH (06:31)
[2021-04-23] MEDS: Famotidine 20 MG Tab PO SCH ×2 (08:24→20:21)
[2021-04-23] MEDS: Potassium Chloride 20 MEQ Tab.ER PO SCH ×2 (08:24→19:49)
[2021-04-23] MEDS: Docusate Sodium 100 MG Cap PO SCH (08:25)
[2021-04-23] MEDS: Aspirin 81 MG Tab.Chew PO SCH (08:25)
[2021-04-23] MEDS: Metoprolol Tartrate 25 MG Tab PO SCH ×2 (08:25→19:50)
[2021-04-23] MEDS: Apixaban 5 MG Tab PO SCH ×2 (08:25→20:21)
[2021-04-23] MEDS: hydrOXYzine HCl 25 MG Tab PO SCH ×4 (08:25→19:48)
[2021-04-23] MEDS: Amiodarone 200 MG Tab PO SCH ×2 (08:25→19:48)
[2021-04-23] MEDS ORDERED: Bisacodyl 10 MG Supp RECTAL PRN (09:31)
[2021-04-23] MEDS ORDERED: Sodium Phosphate,Monobasic/Sodium Phosphate,Dibasic Enema 133 ML Bottle RECTAL ONE (12:33)
--- NOTE | 2021-04-23 17:17 | PCM.PN ---
- General Info Date of Service: 04/22/21 Admission Dx/Problem (Free Text): Ventricular tachycardia Fall Subjective Update: This patient was received in signout this morning. He was admitted to the hospital for management of ventricular tachycardia and was placed on an amiodarone drip. He has continued to do well with this, remaining in normal sinus rhythm with a normal rate. He will continue to receive this amiodarone IV through the day. Later this afternoon he will be started on oral amiodarone with continued cardiovascular monitoring. He is hemodynamically stable with vital signs that are largely unchanged. He denies any chest pain, difficulty breathing or shortness of breath. He does have some intermittent and mild abdominal pain, primarily in the right upper quadrant. He is have some appetite although was not taking much orally. He will take fluids better than solid fo ods at this time. He has not had a fever. Functional Status: Reports: Pain Controlled - Review of Systems General: Reports: Weakness. Denies: Fever HEENT: Reports: No Symptoms Pulmonary: Denies: Shortness of Breath, Cough Cardiovascular: Denies: Chest Pain, Palpitations, Dyspnea on Exertion, Orthopnea, Lightheadedness Musculoskeletal: Reports: No Symptoms Skin: Reports: No Symptoms Neurological: Reports: No Symptoms - Patient Data Vitals - Most Recent: Last Vital Signs Temp 36.6 C 04/23/21 12:29 Pulse 86 04/23/21 17:00 Resp 28 H 04/23/21 17:00 BP 124/75 04/23/21 17:00 Pulse Ox 93 L 04/23/21 17:00 Weight - Most Recent: 63.503 kg I&O - Last 24 Hours: Intake & Output 04/23/21 04/23/21 04/23/21 06:59 14:59 22:59 Intake Total 600 Balance 600 Med Orders - Current: Current Medications Acetaminophen (Acetaminophen 325 Mg Tab) 650 mg PO Q4H PRN PRN Reason: Pain (Mild 1-3)/fever Acetaminophen (Acetaminophen 650 Mg Tab.Er) 650 mg PO Q4H PRN PRN Reason: Pain (severe 7-10) Al Hydroxide/Mg Hydroxide (Aluminum Hydroxide/Magnesium Hydroxide/Simethicone Susp 30 Ml Cup) 30 ml PO Q4H PRN PRN Reason: Indigestion Last Admin: 04/22/21 17:35 Dose: 30 ml Documented by: Amiodarone HCl (Amiodarone 200 Mg Tab) 400 mg PO BID [facility] Last Admin: 04/23/21 08:25 Dose: 400 mg Documented by: Apixaban (Apixaban 5 Mg Tab) 5 mg PO BID [facility] Last Admin: 04/23/21 08:25 Dose: 5 mg Documented by: Aspirin (Aspirin 81 Mg Tab.Chew) 81 mg PO DAILY [facility] Last Admin: 04/23/21 08:25 Dose: 81 mg Documented by: Atorvastatin Calcium (Atorvastatin 40 Mg Tab) 40 mg PO BEDTIME [facility] Last Admin: 04/22/21 20:22 Dose: 40 mg Documented by: Bisacodyl (Bisacodyl 10 Mg Supp) 10 mg RECTAL DAILY PRN PRN Reason: Constipation Last Admin: 04/23/21 09:40 Dose: 10 mg Documented by: Bumetanide (Bumetanide 1 Mg Tab) 1 mg PO DAILY PRN PRN Reason: Edema Docusate Sodium (Docusate Sodium 100 Mg Cap) 100 mg PO DAILY [facility] Last Admin: 04/23/21 08:25 Dose: 100 mg Documented by: Famotidine (Famotidine 20 Mg Tab) 20 mg PO BID [facility] Last Admin: 04/23/21 08:24 Dose: 20 mg Documented by: Hydroxyzine HCl (Hydroxyzine Hcl 25 Mg Tab) 25 mg PO QID [facility] Last Admin: 04/23/21 12:09 Dose: Not Given Documented by: Sodium Chloride (Normal Saline) 1,000 mls @ 50 mls/hr IV ASDIRECTED [facility] Last Admin: 04/22/21 18:15 Dose: 50 mls/hr Documented by: Levothyroxine Sodium (Levothyroxine 100 Mcg Tab) 100 mcg PO ACBREAKFAST [facility] Last Admin: 04/23/21 06:31 Dose: 100 mcg Documented by: Magnesium Hydroxide (Magnesium Hydroxide 400 Mg/5 Ml Susp 30 Ml Cup) 30 ml PO DAILY PRN PRN Reason: Constipation Last Admin: 04/22/21 18:15 Dose: 30 ml Documented by: Metoprolol Tartrate (Metoprolol Tartrate 25 Mg Tab) 25 mg PO BID [facility] Last Admin: 04/23/21 08:25 Dose: 25 mg Documented by: Mometasone Furoate/Formoterol Fumar (Formoterol/Mometasone 200-5 Mcg 8.8 Gm Inhaler) 1 puff IH BID [facility] Morphine Sulfate (Morphine Oral Concentrate 20 Mg/Ml 30 Ml Bottle) 5 - 10 mg PO Q4H PRN PRN Reason: Pain Nitroglycerin (Nitroglycerin 0.4 Mg Tab.Sl) 0.4 mg SL Q5M PRN PRN Reason: Chest Pain Non-Formulary Medication (Timolol Maleate [Timoptic 0.25% Ophth Soln]) 1 drop EYELF BEDTIME [facility] Last Admin: 04/22/21 20:34 Dose: Not Given Documented by: Ondansetron HCl (Ondansetron 4 Mg Tab.Dis) 4 mg PO Q4HR PRN PRN Reason: Nausea Potassium Chloride (Potassium Chloride 20 Meq Tab.Er) 20 meq PO BID [facility] Last Admin: 04/23/21 08:24 Dose: 20 meq Documented by: Tamsulosin HCl (Tamsulosin 0.4 Mg Cap.Er) 0.4 mg PO BEDTIME [facility] Last Admin: 04/22/21 20:21 Dose: 0.4 mg Documented by: Discontinued Medications Al Hydroxide/Mg Hydroxide (Aluminum Hydroxide/Magnesium Hydroxide/Simethicone Susp 30 Ml Cup) Confirm Administered Dose 30 ml .ROUTE .[facility] Stop: 04/22/21 17:31 Last Admin: 04/22/21 17:55 Dose: Not Given Documented by: Bumetanide (Bumetanide 1 Mg Tab) 1 mg PO ASDIRECTED [facility] Last Admin: 04/22/21 08:53 Dose: 1 mg Documented by: Amiodarone HCl 450 mg/ (Dextrose/Water) 259 mls @ 33.3 mls/hr IV ASDIRECTED [facility] Last Infusion: 04/21/21 19:00 Dose: Infused Documented by: Amiodarone HCl 150 mg/ (Dextrose/Water) 53 mls @ 200 mls/hr IV ASDIRECTED [facility] Stop: 04/21/21 12:00 Amiodarone HCl 900 mg/ (Dextrose/Water) 518 mls @ 16.67 mls/hr IV ASDIRECTED [facility] Last Admin: 04/21/21 19:00 Dose: 16.67 mls/hr Documented by: Sodium Chloride (Normal Saline) 1,000 mls @ 100 mls/hr IV Q10H [facility] Last Admin: 04/22/21 15:20 Dose: Not Given Documented by: Ketorolac Tromethamine (Ketorolac 30 Mg/Ml Sdv) Confirm Administered Dose 30 mg .ROUTE .STK-MED ONE Stop: 04/21/21 14:55 Last Admin: 04/21/21 16:15 Dose: Not Given Documented by: Ketorolac Tromethamine (Ketorolac 60 Mg/2 Ml Sdv) 30 mg IVPUSH ONETIME ONE Stop: 04/21/21 16:17 Last Admin: 04/21/21 17:52 Dose: 30 mg Documented by: Magnesium Hydroxide (Magnesium Hydroxide 400 Mg/5 Ml Susp 30 Ml Cup) Confirm Administered Dose 30 ml .ROUTE .STK-MED ONE Stop: 04/22/21 18:14 Last Admin: 04/22/21 18:21 Dose: Not Given Documented by: Morphine Sulfate (Morphine Oral Concentrate 20 Mg/Ml 30 Ml Bottle) 5 - 10 mg PO Q4H [facility] Last Admin: 04/22/21 13:07 Dose: 5 mg Documented by: Non-Formulary Medication (Budesonide/Formoterol [Symbicort 160-4.5 Mcg]) 1 puff INH BID [facility] Last Admin: 04/23/21 12:10 Dose: Not Given Documented by: Non-Formulary Medication (Potassium Chloride [Klor-Con]) 40 meq PO BID [facility] Last Admin: 04/22/21 11:11 Dose: Not Given Documented by: Potassium Chloride (Potassium Chloride 20 Meq Tab.Er) Confirm Administered Dose 40 meq .ROUTE .STK-MED ONE Stop: 04/22/21 08:51 Last Admin: 04/22/21 11:09 Dose: Not Given Documented by: Potassium Chloride (Potassium Chloride 20 Meq Tab.Er) Confirm Administered Dose 20 meq .ROUTE .STK-MED ONE Stop: 04/22/21 08:53 Last Admin: 04/22/21 11:10 Dose: Not Given Documented by: Sodium Biphosphate/Sodium Phosphate (Sodium Phosphate,Monobasic/Sodium Phosphate,Dibasic Enema 133 Ml Bottle) 133 ml RECTAL ONETIME ONE Stop: 04/23/21 12:34 Last Admin: 04/23/21 12:40 Dose: 133 ml Documented by: - Exam Quality Assessment: Supplemental Oxygen, Central Line/PICC General: Alert, Oriented, Cooperative, No Acute Distress HEENT: Pupils Equal, Pupils Reactive, Mucous Membr. Moist/[place] Neck: Supple, Trachea Midline Lungs: Clear to Auscultation, Normal Respiratory Effort Cardiovascular: Regular Rate, Regular Rhythm Extremities: Normal Inspection, No Pedal Edema Skin: Warm, Dry Neurological: No New Focal Deficit Psy/Mental Status: Alert, Normal Affect - Patient Data Result Diagrams: 04/21/21 09:28 04/22/21 07:20 Sepsis Event Note - Evaluation Sepsis Screening Result: No Definite Risk - Focused Exam Vital Signs: Vital Signs Temp Pulse Pulse Resp BP BP Pulse Ox 04/23/21 17:00 86 28 H 124/75 93 L 04/23/21 15:00 100 04/23/21 12:29 36.6 C 82 18 109/70 96 04/23/21 08:29 37.0 C 66 16 129/68 95 04/23/21 08:25 66 129/68 - Problem List & Annotations (1) Ventricular tachyarrhythmia SNOMED Code(s): 06587492, 32159094 Code(s): I47.2 - VENTRICULAR TACHYCARDIA Status: Acute Priority: High Current Visit: Yes - Problem List Review Problem List Initiated/Reviewed/Updated: Yes - My Orders Last 24 Hours: My Active Orders 04/22/21 17:08 Morphine [Morphine 20 MG/ML Soln] 5 - 10 mg PO Q4H PRN 04/22/21 17:12 Bumetanide [Bumex] 1 mg PO DAILY PRN 04/22/21 17:27 Alum Hydrox/Mag Hydrox/Simeth [Mag-Al Plus] 30 ml PO Q4H PRN 04/22/21 17:57 Magnesium Hydroxide [Milk of Magnesia] 30 ml PO DAILY PRN 04/22/21 18:15 Sodium Chloride 0.9% [Normal Saline] 1,000 ml IV ASDIRECTED 04/22/21 20:00 Potassium Chloride [Klor-Con M20] 20 meq PO BID 04/23/21 09:31 bisacodyL [Dulcolax] 10 mg RECTAL DAILY PRN - Assessment Assessment:: Ventricular tachycardia, improving Weakness - Plan Plan:: This patient continues to respond well to medication in a conservative management of his ventricular tachycardia. His appetite is not great however he does have pancreatic cancer as well and has had a waning appetite over the past recent past. He should remain on a business support associate until he has fully transitioned to oral management of his tachycardia. Critical care status can be DC'd this evening if he continues to remain in a normal sinus rhythm.
--- NOTE | 2021-04-23 17:34 | PCM.PN ---
- General Info Date of Service: 04/23/21 Admission Dx/Problem (Free Text): Ventricular tachycardia Subjective Update: This patient did well throughout the night and has continued to remain stable having been weaned from IV amiodarone to oral medication. He has remained in normal sinus rhythm with a normal rate. He has not had a fever, his appetite is approximately same and he is drinking fluids. He is transferring fairly well from bed to chair and back with the assistance of one. He denies any pain including chest pain, headache and he has had no nausea or vomiting. Functional Status: Reports: Pain Controlled - Review of Systems General: Reports: No Symptoms HEENT: Reports: No Symptoms Pulmonary: Reports: No Symptoms Cardiovascular: Reports: No Symptoms Gastrointestinal: Reports: Abdominal Pain. Denies: Diarrhea, Nausea, Vomiting Musculoskeletal: Reports: No Symptoms Skin: Reports: No Symptoms Neurological: Reports: No Symptoms - Patient Data Vitals - Most Recent: Last Vital Signs Temp 36.6 C 04/23/21 12:29 Pulse 86 04/23/21 17:00 Resp 28 H 04/23/21 17:00 BP 124/75 04/23/21 17:00 Pulse Ox 93 L 04/23/21 17:00 Weight - Most Recent: 63.503 kg I&O - Last 24 Hours: Intake & Output 04/23/21 04/23/21 04/23/21 06:59 14:59 22:59 Intake Total 600 Balance 600 Med Orders - Current: Current Medications Acetaminophen (Acetaminophen 325 Mg Tab) 650 mg PO Q4H PRN PRN Reason: Pain (Mild 1-3)/fever Acetaminophen (Acetaminophen 650 Mg Tab.Er) 650 mg PO Q4H PRN PRN Reason: Pain (severe 7-10) Al Hydroxide/Mg Hydroxide (Aluminum Hydroxide/Magnesium Hydroxide/Simethicone Susp 30 Ml Cup) 30 ml PO Q4H PRN PRN Reason: Indigestion Last Admin: 04/22/21 17:35 Dose: 30 ml Documented by: Amiodarone HCl (Amiodarone 200 Mg Tab) 400 mg PO BID [facility] Last Admin: 04/23/21 08:25 Dose: 400 mg Documented by: Apixaban (Apixaban 5 Mg Tab) 5 mg PO BID [facility] Last Admin: 04/23/21 08:25 Dose: 5 mg Documented by: Aspirin (Aspirin 81 Mg Tab.Chew) 81 mg PO DAILY [facility] Last Admin: 04/23/21 08:25 Dose: 81 mg Documented by: Atorvastatin Calcium (Atorvastatin 40 Mg Tab) 40 mg PO BEDTIME [facility] Last Admin: 04/22/21 20:22 Dose: 40 mg Documented by: Bisacodyl (Bisacodyl 10 Mg Supp) 10 mg RECTAL DAILY PRN PRN Reason: Constipation Last Admin: 04/23/21 09:40 Dose: 10 mg Documented by: Bumetanide (Bumetanide 1 Mg Tab) 1 mg PO DAILY PRN PRN Reason: Edema Docusate Sodium (Docusate Sodium 100 Mg Cap) 100 mg PO DAILY [facility] Last Admin: 04/23/21 08:25 Dose: 100 mg Documented by: Famotidine (Famotidine 20 Mg Tab) 20 mg PO BID [facility] Last Admin: 04/23/21 08:24 Dose: 20 mg Documented by: Hydroxyzine HCl (Hydroxyzine Hcl 25 Mg Tab) 25 mg PO QID [facility] Last Admin: 04/23/21 12:09 Dose: Not Given Documented by: Sodium Chloride (Normal Saline) 1,000 mls @ 50 mls/hr IV ASDIRECTED [facility] Last Admin: 04/22/21 18:15 Dose: 50 mls/hr Documented by: Levothyroxine Sodium (Levothyroxine 100 Mcg Tab) 100 mcg PO ACBREAKFAST [facility] Last Admin: 04/23/21 06:31 Dose: 100 mcg Documented by: Magnesium Hydroxide (Magnesium Hydroxide 400 Mg/5 Ml Susp 30 Ml Cup) 30 ml PO DAILY PRN PRN Reason: Constipation Last Admin: 04/22/21 18:15 Dose: 30 ml Documented by: Metoprolol Tartrate (Metoprolol Tartrate 25 Mg Tab) 25 mg PO BID [facility] Last Admin: 04/23/21 08:25 Dose: 25 mg Documented by: Mometasone Furoate/Formoterol Fumar (Formoterol/Mometasone 200-5 Mcg 8.8 Gm Inhaler) 1 puff IH BID [facility] Morphine Sulfate (Morphine Oral Concentrate 20 Mg/Ml 30 Ml Bottle) 5 - 10 mg PO Q4H PRN PRN Reason: Pain Nitroglycerin (Nitroglycerin 0.4 Mg Tab.Sl) 0.4 mg SL Q5M PRN PRN Reason: Chest Pain Non-Formulary Medication (Timolol Maleate [Timoptic 0.25% Ophth Soln]) 1 drop EYELF BEDTIME [facility] Last Admin: 04/22/21 20:34 Dose: Not Given Documented by: Ondansetron HCl (Ondansetron 4 Mg Tab.Dis) 4 mg PO Q4HR PRN PRN Reason: Nausea Potassium Chloride (Potassium Chloride 20 Meq Tab.Er) 20 meq PO BID [facility] Last Admin: 04/23/21 08:24 Dose: 20 meq Documented by: Tamsulosin HCl (Tamsulosin 0.4 Mg Cap.Er) 0.4 mg PO BEDTIME [facility] Last Admin: 04/22/21 20:21 Dose: 0.4 mg Documented by: Discontinued Medications Al Hydroxide/Mg Hydroxide (Aluminum Hydroxide/Magnesium Hydroxide/Simethicone Susp 30 Ml Cup) Confirm Administered Dose 30 ml .ROUTE .STK-MED ONE Stop: 04/22/21 17:31 Last Admin: 04/22/21 17:55 Dose: Not Given Documented by: Bumetanide (Bumetanide 1 Mg Tab) 1 mg PO ASDIRECTED [facility] Last Admin: 04/22/21 08:53 Dose: 1 mg Documented by: Amiodarone HCl 450 mg/ (Dextrose/Water) 259 mls @ 33.3 mls/hr IV ASDIRECTED [facility] Last Infusion: 04/21/21 19:00 Dose: Infused Documented by: Amiodarone HCl 150 mg/ (Dextrose/Water) 53 mls @ 200 mls/hr IV ASDIRECTED [facility] Stop: 04/21/21 12:00 Amiodarone HCl 900 mg/ (Dextrose/Water) 518 mls @ 16.67 mls/hr IV ASDIRECTED [facility] Last Admin: 04/21/21 19:00 Dose: 16.67 mls/hr Documented by: Sodium Chloride (Normal Saline) 1,000 mls @ 100 mls/hr IV Q10H [facility] Last Admin: 04/22/21 15:20 Dose: Not Given Documented by: Ketorolac Tromethamine (Ketorolac 30 Mg/Ml Sdv) Confirm Administered Dose 30 mg .ROUTE .STK-MED ONE Stop: 04/21/21 14:55 Last Admin: 04/21/21 16:15 Dose: Not Given Documented by: Ketorolac Tromethamine (Ketorolac 60 Mg/2 Ml Sdv) 30 mg IVPUSH ONETIME ONE Stop: 04/21/21 16:17 Last Admin: 04/21/21 17:52 Dose: 30 mg Documented by: Magnesium Hydroxide (Magnesium Hydroxide 400 Mg/5 Ml Susp 30 Ml Cup) Confirm Administered Dose 30 ml .ROUTE .STK-MED ONE Stop: 04/22/21 18:14 Last Admin: 04/22/21 18:21 Dose: Not Given Documented by: Morphine Sulfate (Morphine Oral Concentrate 20 Mg/Ml 30 Ml Bottle) 5 - 10 mg PO Q4H [facility] Last Admin: 04/22/21 13:07 Dose: 5 mg Documented by: Non-Formulary Medication (Budesonide/Formoterol [Symbicort 160-4.5 Mcg]) 1 puff INH BID [facility] Last Admin: 04/23/21 12:10 Dose: Not Given Documented by: Non-Formulary Medication (Potassium Chloride [Klor-Con]) 40 meq PO BID [facility] Last Admin: 04/22/21 11:11 Dose: Not Given Documented by: Potassium Chloride (Potassium Chloride 20 Meq Tab.Er) Confirm Administered Dose 40 meq .ROUTE .STK-MED ONE Stop: 04/22/21 08:51 Last Admin: 04/22/21 11:09 Dose: Not Given Documented by: Potassium Chloride (Potassium Chloride 20 Meq Tab.Er) Confirm Administered Dose 20 meq .ROUTE .STK-MED ONE Stop: 04/22/21 08:53 Last Admin: 04/22/21 11:10 Dose: Not Given Documented by: Sodium Biphosphate/Sodium Phosphate (Sodium Phosphate,Monobasic/Sodium Phosphate,Dibasic Enema 133 Ml Bottle) 133 ml RECTAL ONETIME ONE Stop: 04/23/21 12:34 Last Admin: 04/23/21 12:40 Dose: 133 ml Documented by: - Exam Quality Assessment: Central Line/PICC. No: Supplemental Oxygen General: Alert, Oriented HEENT: Pupils Equal, Pupils Reactive, EOMI, Mucous Membr. Moist/[employer] [employer] Neck: Supple Lungs: Clear to Auscultation, Normal Respiratory Effort Cardiovascular: Regular Rate, Regular Rhythm Extremities: Normal Inspection Skin: Warm, Dry Neurological: No New Focal Deficit Psy/Mental Status: Alert, Normal Affect - Patient Data Result Diagrams: 04/21/21 09:28 04/22/21 07:20 Sepsis Event Note - Evaluation Sepsis Screening Result: No Definite Risk - Focused Exam Vital Signs: Vital Signs Temp Pulse Pulse Resp BP BP Pulse Ox 04/23/21 17:00 86 28 H 124/75 93 L 04/23/21 15:00 100 04/23/21 12:29 36.6 C 82 18 109/70 96 04/23/21 08:29 37.0 C 66 16 129/68 95 04/23/21 08:25 66 129/68 - Problem List & Annotations (1) Ventricular tachyarrhythmia SNOMED Code(s): 01399488, 77414110 Code(s): I47.2 - VENTRICULAR TACHYCARDIA Status: Acute Priority: High Current Visit: Yes - Problem List Review Problem List Initiated/Reviewed/Updated: Yes - My Orders Last 24 Hours: My Active Orders 04/22/21 17:08 Morphine [Morphine 20 MG/ML Soln] 5 - 10 mg PO Q4H PRN 04/22/21 17:12 Bumetanide [Bumex] 1 mg PO DAILY PRN 04/22/21 17:27 Alum Hydrox/Mag Hydrox/Simeth [Mag-Al Plus] 30 ml PO Q4H PRN 04/22/21 17:57 Magnesium Hydroxide [Milk of Magnesia] 30 ml PO DAILY PRN 04/22/21 18:15 Sodium Chloride 0.9% [Normal Saline] 1,000 ml IV ASDIRECTED 04/22/21 20:00 Potassium Chloride [Klor-Con M20] 20 meq PO BID 04/23/21 09:31 bisacodyL [Dulcolax] 10 mg RECTAL DAILY PRN - Assessment Assessment:: Ventricular tachycardia, improving Weakness - Plan Plan:: This patient continues to do well on oral medication, remaining in normal sinus rhythm with a normal rate. If he does well through the night he will be dischar ge home tomorrow on oral medication. Remaining care per orders.
[2021-04-23] MEDS: atorvaSTATin 40 MG Tab PO SCH (19:50)
[2021-04-23] MEDS: Tamsulosin 0.4 MG Cap.ER PO SCH (19:50)
[2021-04-23] MEDS: Formoterol/Mometasone 200-5 MCG 8.8 GM Inhaler IH SCH (19:56)
[2021-04-23] MEDS: TIMOLOL MALEATE EYELF SCH (19:56)
[2021-04-24] MEDS: Sodium Chloride 0.9% 1,000 ML IV SCH (01:00)
[2021-04-24] MEDS: Levothyroxine 100 MCG Tab PO SCH (06:16)
[2021-04-24] MEDS: Potassium Chloride 20 MEQ Tab.ER PO SCH (08:22)
[2021-04-24] MEDS: Amiodarone 200 MG Tab PO SCH (08:22)
[2021-04-24] MEDS: Apixaban 5 MG Tab PO SCH (08:23)
[2021-04-24] MEDS: Famotidine 20 MG Tab PO SCH (08:23)
[2021-04-24] MEDS: hydrOXYzine HCl 25 MG Tab PO SCH ×2 (08:23→12:06)
[2021-04-24] MEDS: Aspirin 81 MG Tab.Chew PO SCH (08:24)
[2021-04-24] MEDS: Metoprolol Tartrate 25 MG Tab PO SCH (08:24)
[2021-04-24] MEDS: Docusate Sodium 100 MG Cap PO SCH (08:24)
[2021-04-24 08:25] VITALS: BP 126/76; PULSE 80
[2021-04-24] MEDS: Formoterol/Mometasone 200-5 MCG 8.8 GM Inhaler IH SCH (08:25)
--- NOTE | 2021-04-24 13:15 | PCM.DCSUM1 ---
Discharge Summary - Hospital Course Free Text/Narrative:: This patient was admitted to the inpatient unit for management of ventricular tachycardia. He was initially treated with an amiodarone drip and was able to wean to oral medication. He has remained in a normal sinus rhythm since he originally converted and has tolerated the oral medication very well. He is quite comfortable, denying pain in his chest. He does have a history of pancreatic cancer and does have some abdominal pain intermittently. He is c omplaining of that today. His vital signs have been stable and he is afebrile. His appetite is poor but he is drinking some fluids when encouraged. He does have some generalized weakness which was not related to this hospitalization. He is able to transfer with assistance. Brief History: As noted above Diagnosis: Stroke: No - Discharge Data Discharge Date: 04/24/21 Discharge Disposition: Home, Self-Care 01 Condition: Good - Referral to Home Health Primary Care Physician: PCP None - Discharge Diagnosis/Problem(s) (1) Ventricular tachyarrhythmia SNOMED Code(s): 94076532, [id number] ICD Code: I47.2 - VENTRICULAR TACHYCARDIA Status: Acute Priority: High Current Visit: Yes - Discharge Plan Prescriptions/Med Rec: Amiodarone HCl 400 mg PO BID #60 tablet Home Medications: Home Meds Apixaban [Eliquis] 5 mg PO BID 04/30/18 [History] atorvaSTATin [Lipitor] 40 mg PO BEDTIME 06/23/18 [History] Acetaminophen [Tylenol Arthritis Pain] 650 mg PO Q4H PRN tab.er 07/03/18 [Rx] Levothyroxine Sodium [Synthroid] 100 mcg PO ACBREAKFAST 30 Days #30 tab 07/03/18 [Rx] Nitroglycerin [Nitrostat] 0.4 mg SL Q5M PRN tab.sl 07/03/18 [Rx] Tamsulosin [Flomax] 0.4 mg PO BEDTIME 30 Days #30 cap.er 07/03/18 [Rx] Famotidine [Pepcid] 20 mg PO BID 10/02/18 [History] Aspirin 81 mg PO DAILY 03/14/21 [History] Bumetanide [Bumex] 1 mg PO ASDIRECTED 03/14/21 [History] Metoprolol Tartrate 25 mg PO BID 03/14/21 [History] timoloL maleate [Timoptic 0.25% Ophth Soln] 1 drop EYELF BEDTIME 03/14/21 [History] Budesonide/Formoterol [Symbicort 160-4.5 MCG] 1 puff INH BID 04/21/21 [History] Morphine [Morphine 10 MG/5 ML] 2.5 ml PO Q4HR PRN 04/21/21 [History] Ondansetron [Zofran ODT] 4 mg PO Q4HR PRN 04/21/21 [History] hydrOXYzine HCL [Atarax] 25 mg PO QID 04/21/21 [History] Amiodarone HCl 400 mg PO BID #60 tablet 04/24/21 [Rx] Patient Handouts: Ventricular Tachycardia Forms: ED Department Discharge Referrals: PCP,None [Primary Care Provider] - - Discharge Summary/Plan Comment DC Time >30 min.: No Total # of Minutes for Discharge Time: 30 Discharge Summary/Plan Comment: Central line was removed without difficulty or complication prior to discharge. - General Info Date of Service: 04/24/21 Admission Dx/Problem (Free Text: Ventricular tachycardia Subjective Update: This patient remains in house for continued management of ventricular f ibrillation. He was converted with an amiodarone drip and has tolerated a switch to oral medication. Since he originally converted back into normal sinus rhythm he has remained in a normal sinus rhythm with a normal rate. He has tolerated oral medication very well. His vital signs of been stable and he has been afebrile. He remains weak of; however, pancreatic cancer and is currently being treated for that. His weakness is related to that diagnoses. He has been transferring fairly well with the assistance of nursing. This was not related to this hospitalization. He denies pain with the exception of some intermittent, mild abdominal pain. His appetite is poor for solids but he is raking fluids with encouragement. Functional Status: Reports: Pain Controlled - Review of Systems General: Reports: No Symptoms HEENT: Reports: No Symptoms Pulmonary: Reports: No Symptoms Cardiovascular: Reports: No Symptoms Gastrointestinal: Reports: Abdominal Pain Musculoskeletal: Reports: No Symptoms Skin: Reports: No Symptoms Neurological: Reports: No Symptoms - Patient Data Vitals - Most Recent: Last Vital Signs Temp 35.9 C L 04/24/21 07:35 Pulse 80 04/24/21 08:24 Resp 16 04/24/21 07:35 BP 126/76 04/24/21 08:24 Pulse Ox 96 04/24/21 05:00 Weight - Most Recent: 63.503 kg I&O - Last 24 hours: Intake & Output 04/23/21 04/24/21 04/24/21 22:59 06:59 14:59 Intake Total 634 600 Balance 634 600 Med Orders - Current: Current Medications Acetaminophen (Acetaminophen 325 Mg Tab) 650 mg PO Q4H PRN PRN Reason: Pain (Mild 1-3)/fever Acetaminophen (Acetaminophen 650 Mg Tab.Er) 650 mg PO Q4H PRN PRN Reason: Pain (severe 7-10) Last Admin: 04/23/21 19:49 Dose: 650 mg Documented by: Al Hydroxide/Mg Hydroxide (Aluminum Hydroxide/Magnesium Hydroxide/Simethicone Susp 30 Ml Cup) 30 ml PO Q4H PRN PRN Reason: Indigestion Last Admin: 04/22/21 17:35 Dose: 30 ml Documented by: Amiodarone HCl (Amiodarone 200 Mg Tab) 400 mg PO BID [facility] Last Admin: 04/24/21 08:22 Dose: 400 mg Documented by: Apixaban (Apixaban 5 Mg Tab) 5 mg PO BID [facility] Last Admin: 04/24/21 08:23 Dose: 5 mg Documented by: Aspirin (Aspirin 81 Mg Tab.Chew) 81 mg PO DAILY [facility] Last Admin: 04/24/21 08:24 Dose: 81 mg Documented by: Atorvastatin Calcium (Atorvastatin 40 Mg Tab) 40 mg PO BEDTIME [facility] Last Admin: 04/23/21 19:50 Dose: 40 mg Documented by: Bisacodyl (Bisacodyl 10 Mg Supp) 10 mg RECTAL DAILY PRN PRN Reason: Constipation Last Admin: 04/23/21 09:40 Dose: 10 mg Documented by: Bumetanide (Bumetanide 1 Mg Tab) 1 mg PO DAILY PRN PRN Reason: Edema Last Admin: 04/24/21 09:32 Dose: 1 mg Documented by: Docusate Sodium (Docusate Sodium 100 Mg Cap) 100 mg PO DAILY [facility] Last Admin: 04/24/21 08:24 Dose: 100 mg Documented by: Famotidine (Famotidine 20 Mg Tab) 20 mg PO BID [facility] Last Admin: 04/24/21 08:23 Dose: 20 mg Documented by: Hydroxyzine HCl (Hydroxyzine Hcl 25 Mg Tab) 25 mg PO QID [facility] Last Admin: 04/24/21 12:06 Dose: 25 mg Documented by: Sodium Chloride (Normal Saline) 1,000 mls @ 50 mls/hr IV ASDIRECTED [facility] Last Admin: 04/24/21 01:00 Dose: 50 mls/hr Documented by: Levothyroxine Sodium (Levothyroxine 100 Mcg Tab) 100 mcg PO ACBREAKFAST [facility] Last Admin: 04/24/21 06:16 Dose: 100 mcg Documented by: Magnesium Hydroxide (Magnesium Hydroxide 400 Mg/5 Ml Susp 30 Ml Cup) 30 ml PO DAILY PRN PRN Reason: Constipation Last Admin: 04/22/21 18:15 Dose: 30 ml Documented by: Metoprolol Tartrate (Metoprolol Tartrate 25 Mg Tab) 25 mg PO BID [facility] Last Admin: 04/24/21 08:24 Dose: 25 mg Documented by: Mometasone Furoate/Formoterol Fumar (Formoterol/Mometasone 200-5 Mcg 8.8 Gm Inhaler) 1 puff IH BID [facility] Last Admin: 04/24/21 08:25 Dose: 1 puff Documented by: Morphine Sulfate (Morphine Oral Concentrate 20 Mg/Ml 30 Ml Bottle) 5 - 10 mg PO Q4H PRN PRN Reason: Pain Nitroglycerin (Nitroglycerin 0.4 Mg Tab.Sl) 0.4 mg SL Q5M PRN PRN Reason: Chest Pain Non-Formulary Medication (Timolol Maleate [Timoptic 0.25% Oph Soln]) 1 drop EYELF BEDTIME [facility] Last Admin: 04/23/21 19:56 Dose: Not Given Documented by: Ondansetron HCl (Ondansetron 4 Mg Tab.Dis) 4 mg PO Q4HR PRN PRN Reason: Nausea Potassium Chloride (Potassium Chloride 20 Meq Tab.Er) 20 meq PO BID [facility] Last Admin: 04/24/21 08:22 Dose: 20 meq Documented by: Tamsulosin HCl (Tamsulosin 0.4 Mg Cap.Er) 0.4 mg PO BEDTIME [facility] Last Admin: 04/23/21 19:50 Dose: 0.4 mg Documented by: Discontinued Medications Al Hydroxide/Mg Hydroxide (Aluminum Hydroxide/Magnesium Hydroxide/Simethicone Susp 30 Ml Cup) Confirm Administered Dose 30 ml .ROUTE .STK-MED ONE Stop: 04/22/21 17:31 Last Admin: 04/22/21 17:55 Dose: Not Given Documented by: Bumetanide (Bumetanide 1 Mg Tab) 1 mg PO ASDIRECTED [facility] Last Admin: 04/22/21 08:53 Dose: 1 mg Documented by: Amiodarone HCl 450 mg/ (Dextrose/Water) 259 mls @ 33.3 mls/hr IV ASDIRECTED [facility] Last Infusion: 04/21/21 19:00 Dose: Infused Documented by: Amiodarone HCl 150 mg/ (Dextrose/Water) 53 mls @ 200 mls/hr IV ASDIRECTED [facility] Stop: 04/21/21 12:00 Amiodarone HCl 900 mg/ (Dextrose/Water) 518 mls @ 16.67 mls/hr IV ASDIRECTED [facility] Last Admin: 04/21/21 19:00 Dose: 16.67 mls/hr Documented by: Sodium Chloride (Normal Saline) 1,000 mls @ 100 mls/hr IV Q10H [facility] Last Admin: 04/22/21 15:20 Dose: Not Given Documented by: Ketorolac Tromethamine (Ketorolac 30 Mg/Ml Sdv) Confirm Administered Dose 30 mg .ROUTE .STK-MED ONE Stop: 04/21/21 14:55 Last Admin: 04/21/21 16:15 Dose: Not Given Documented by: Ketorolac Tromethamine (Ketorolac 60 Mg/2 Ml Sdv) 30 mg IVPUSH ONETIME ONE Stop: 04/21/21 16:17 Last Admin: 04/21/21 17:52 Dose: 30 mg Documented by: Magnesium Hydroxide (Magnesium Hydroxide 400 Mg/5 Ml Susp 30 Ml Cup) Confirm Administered Dose 30 ml .ROUTE .STK-MED ONE Stop: 04/22/21 18:14 Last Admin: 04/22/21 18:21 Dose: Not Given Documented by: Morphine Sulfate (Morphine Oral Concentrate 20 Mg/Ml 30 Ml Bottle) 5 - 10 mg PO Q4H [facility] Last Admin: 04/22/21 13:07 Dose: 5 mg Documented by: Non-Formulary Medication (Budesonide/Formoterol [Symbicort 160-4.5 Mcg]) 1 puff INH BID [facility] Last Admin: 04/23/21 12:10 Dose: Not Given Documented by: Non-Formulary Medication (Potassium Chloride [Klor-Con]) 40 meq PO BID [facility] Last Admin: 04/22/21 11:11 Dose: Not Given Documented by: Potassium Chloride (Potassium Chloride 20 Meq Tab.Er) Confirm Administered Dose 40 meq .ROUTE .STK-MED ONE Stop: 04/22/21 08:51 Last Admin: 04/22/21 11:09 Dose: Not Given Documented by: Potassium Chloride (Potassium Chloride 20 Meq Tab.Er) Confirm Administered Dose 20 meq .ROUTE .STK-MED ONE Stop: 04/22/21 08:53 Last Admin: 04/22/21 11:10 Dose: Not Given Documented by: Sodium Biphosphate/Sodium Phosphate (Sodium Phosphate,Monobasic/Sodium Phosphate,Dibasic Enema 133 Ml Bottle) 133 ml RECTAL ONETIME ONE Stop: 04/23/21 12:34 Last Admin: 04/23/21 12:40 Dose: 133 ml Documented by: - Exam General: Reports: Alert, Oriented, Cooperative, No Acute Distress HEENT: Reports: Pupils Equal (He tolerated that okay), Pupils Reactive, Mucous Membr. Moist/[place] Neck: Reports: Supple Lungs: Reports: Clear to Auscultation, Normal Respiratory Effort Cardiovascular: Reports: Regular Rate, Regular Rhythm GI/Abdominal Exam: Normal Bowel Sounds, Soft, No Distention, Other (Mild tenderness with palpation) Skin: Reports: Warm, Dry Wound/Incisions: Reports: Healing Well (Central line insertion site) Neurological: Reports: No New Focal Deficit Psy/Mental Status: Reports: Alert, Normal Affect, Normal Mood Discharge Operative/Procedures - Procedures Performed Operations: Surgeon call me back I got a PE
--- NOTE | 2021-04-25 12:47 | PCM.SN.2 ---
- Free Text/Narrative Note: This patient was recently hospitalized for ventricular fibrillation. He has multiple complex health problems including pancreatic cancer for which he will be starting therapy. At the time he was discharged from our facility, he was in a weakened and deconditioned state. He is was discharged to home in the care of his family who have some services available for him however require assistance with transfers and lifts. It is my opinion that a [place] lift is needed to complete transfers safely from bed to chair and commode. Without the use of a lift this patient is likely to be bed confined.
== END 2021-04-24 14:30 | disposition home or self-care (01) | DRG 310 ==
LOC: LB.ED 08:11 → LB.MS 14:13
PROVIDERS: ADMIT Surgery; ATTEND Surgery
DX: I47.2 Ventricular tachycardia (principal); H54.7 Unspecified visual loss; Z95.5 Presence of coronary angioplasty implant and graft; I48.91 Unspecified atrial fibrillation; E78.00 Pure hypercholesterolemia, unspecified; I25.2 Old myocardial infarction; E78.5 Hyperlipidemia, unspecified; Z95.1 Presence of aortocoronary bypass graft; Z86.74 Personal history of sudden cardiac arrest; J44.9 Chronic obstructive pulmonary disease, unspecified; K21.9 Gastro-esophageal reflux disease without esophagitis; I10 Essential (primary) hypertension; Z95.810 Presence of automatic (implantable) cardiac defibrillator; G89.29 Other chronic pain; M54.9 Dorsalgia, unspecified; E20.9 Hypoparathyroidism, unspecified; Z79.01 Long term (current) use of anticoagulants; Z79.02 Long term (current) use of antithrombotics/antiplatelets; Z79.890 Hormone replacement therapy; Z79.899 Other long term (current) drug therapy; Z20.822 Contact with and (suspected) exposure to COVID-19; S06.9X9A Unspecified intracranial injury with loss of consciousness of unspecified duration, initial encounter; W18.12XA Fall from or off toilet with subsequent striking against object, initial encounter
CPT/HCPCS: 36415; 36556; 36680; 70450; 71045; 80053; 81001; 84484; 85025; 93005; 96365; 96366; 96375; 99285; A0425; A0429; J0282; J7060 ×2; U0002; 73610-RT; 83735; 93010; 99223; 99232; 99238; A9270-GY; J1885; J7030

== ENCOUNTER 2021-05-09 11:05 | Emergency (ER) | payer MEDICARE ==
--- NOTE | 2021-05-09 13:09 | EDM.PDOC ---
ED HPI GENERAL MEDICAL PROBLEM - General Chief Complaint: General Stated Complaint: congestion Time Seen by Provider: 05/09/21 11:45 - History of Present Illness INITIAL COMMENTS - FREE TEXT/NARRATIVE: Pt has had some chest congestion and coughing symptoms. His says he seems to be getting worse. He is not concerned, telling us he feels fine. He has not been running a fever at home. - Related Data Allergies Allergy/AdvReac Type Severity Reaction Status Date / Time No Known Allergies Allergy Verified 05/09/21 12:01 Home Meds: Home Meds Apixaban [Eliquis] 5 mg PO BID 04/30/18 [History] atorvaSTATin [Lipitor] 40 mg PO BEDTIME 06/23/18 [History] Acetaminophen [Tylenol Arthritis Pain] 650 mg PO Q4H PRN tab.er 07/03/18 [Rx] Levothyroxine Sodium [Synthroid] 100 mcg PO ACBREAKFAST 30 Days #30 tab 07/03/18 [Rx] Nitroglycerin [Nitrostat] 0.4 mg SL Q5M PRN tab.sl 07/03/18 [Rx] Tamsulosin [Flomax] 0.4 mg PO BEDTIME 30 Days #30 cap.er 07/03/18 [Rx] Famotidine [Pepcid] 20 mg PO BID 10/02/18 [History] Aspirin 81 mg PO DAILY 03/14/21 [History] Bumetanide [Bumex] 1 mg PO ASDIRECTED 03/14/21 [History] Metoprolol Tartrate 25 mg PO BID 03/14/21 [History] timoloL maleate [Timoptic 0.25% Oph Soln] 1 drop EYELF BEDTIME 03/14/21 [History] Budesonide/Formoterol [Symbicort 160-4.5 MCG] 1 puff INH BID 04/21/21 [History] Morphine [Morphine 10 MG/5 ML] 2.5 ml PO Q4HR PRN 04/21/21 [History] Ondansetron [Zofran ODT] 4 mg PO Q4HR PRN 04/21/21 [History] hydrOXYzine HCL [Atarax] 25 mg PO QID 04/21/21 [History] Amiodarone HCl 400 mg PO BID #60 tablet 04/24/21 [Rx] Past Medical History HEENT History: Reports: Glaucoma, Impaired Vision Cardiovascular History: Reports: Afib, Bypass, High Cholesterol, Hypertension, [place], Pacemaker Other Cardiovascular History: 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 Headaches Endocrine/Metabolic History: Reports: Hypoparathyroidism Hematologic History: Reports: Anticoagulation Therapy Oncologic (Cancer) History: Reports: None Dermatologic History: Reports: Other (See Below) Other Dermatologic History: scabbed rash on chest and left arm - Infectious Disease History Infectious Disease History: Reports: Chicken Pox, Shingles - Past Surgical History HEENT Surgical History: Reports: None Cardiovascular Surgical History: Reports: Coronary Artery Bypass, Coronary Artery Stent, Pacer Other Cardiovascular Surgeries/Procedures: 1992 GI Surgical History: Reports: None Neurological Surgical History: Reports: Lumbar Spine, Thoracic Spine Other Neurological Surgeries/Procedures: B feet: decrease in sensation, no pain in LEs Musculoskeletal Surgical History: Reports: Other (See Below) Other Musculoskeletal Surgeries/Procedures:: laminectomy Dermatological Surgical History: Reports: None Social & Family History - Family History Family Medical History: No Pertinent Family History - Tobacco Use Tobacco Use Status *Q: Never Tobacco User Second Hand Smoke Exposure: No - Caffeine Use Caffeine Use: Reports: Coffee ED ROS GENERAL - Review of Systems Review Of Systems: Comprehensive ROS is negative, except as noted in HPI. Respiratory: Reports: Cough, Other (and chest congestion.) ED EXAM, GENERAL - Physical Exam Exam: See Below Respiratory/Chest: Other (he has an occasional loose congested sounding cough.) Extremities: Other (significant edema to both feet and ankles.) Course - Orders/Labs/Meds Orders: Active Orders 24 hr Category Date Time Status Chest 1V Frontal [CR] Stat Exams 05/09/21 11:53 Taken Labs: Laboratory Tests 05/09/21 05/09/21 Range/Units 12:40 12:40 WBC 7.1 D (4.0-11.0) K/uL RBC 3.35 L (4.50-6.50) M/uL Hgb 10.7 L (13.0-18.0) g/dL Hct 33.4 L (40.0-54.0) % MCV 100 H (76-96) fL MCH 31.9 (27.0-32.0) pg MCHC 32.0 (31.0-35.0) g/dL RDW 14.9 (11.0-16.0) % Plt Count 239 (150-400) K/uL MPV 11.1 H (6.0-10.0) fL Neut % (Auto) 76.6 H (45.0-70.0) % Lymph % (Auto) 9.6 L (20.0-40.0) % [place] % (Auto) 11.8 H (3.0-10.0) % Eos % (Auto) 1.7 (1.0-5.0) % Baso % (Auto) 0.3 (0.0-0.5) % Neut # (Auto) 5.45 (2.00-7.50) K/uL Lymph # (Auto) 0.68 L (1.50-4.00) K/uL [place] # (Auto) 0.84 H (0.20-0.80) K/uL Eos # (Auto) 0.12 (0.04-0.40) K/uL Baso # (Auto) 0.02 (0.02-0.10) K/uL Sodium 139 (136-145) mmol/L Potassium 4.5 (3.5-5.1) mmol/L Chloride 106 (98-107) mmol/L Carbon Dioxide 26.2 (21.0-32.0) mmol/L Anion Gap 11.3 (5.0-15.0) mmol/L BUN 19 D (8-26) mg/dL Creatinine 1.73 H D (0.70-1.30) mg/dL Est Cr Clr Drug Dosing TNP Estimated GFR (MDRD) 38 L (>60) MLS/MIN BUN/Creatinine Ratio 11.0 (6-25) Glucose 118 H (74-100) mg/dL Calcium 8.1 L (8.5-10.1) mg/dL Total Bilirubin 0.9 D (0.0-1.0) mg/dL AST 32 (15-37) U/L ALT 24 (12-78) U/L Alkaline Phosphatase 65 (46-116) U/L Total Protein 6.4 (6.4-8.2) g/dL Albumin 2.1 L (3.4-5.0) g/dL Globulin 4.3 H (2.2-4.2) g/dL Albumin/Globulin Ratio 0.5 L (0.8-2.0) - Re-Assessments/Exams Free Text/Narrative Re-Assessment/Exam: 05/09/21 13:08 CXR does not show any significant congestion or Pneumonia. Labs are also ok. He will be discharged home. He has Bumex at home to use prs. He is to take it for 3 days, longer if needed. Monitor his condition closely. Follow up as needed. Departure - Departure Time of Disposition: 13:00 Disposition: Home, Self-Care 01 Condition: Fair Clinical Impression: CHF, Congestive heart failure - Discharge Information *PRESCRIPTION DRUG MONITORING PROGRAM REVIEWED*: Yes *COPY OF PRESCRIPTION DRUG MONITORING REPORT IN PATIENT JASPAL: Yes Additional Instructions: Use Bumex for 3 days, longer if needed for chest congestion. Activity as tolerated. Follow up as needed. Sepsis Event Note (ED) - Evaluation Sepsis Screening Result: No Definite Risk - My Orders Last 24 Hours: My Active Orders 05/09/21 11:53 Chest 1V Frontal [CR] Stat - Assessment/Plan Last 24 Hours: My Active Orders 05/09/21 11:53 Chest 1V Frontal [CR] Stat
--- NOTE | 2021-05-10 08:58 | CR ---
Date of Service: 05/09/21 Clinical Data: Chest congestion. AP PORTABLE CHEST: Comparison is made to a prior exam dated 04/21/21. The heart remains enlarged, unchanged. The cardiac pacer and pacer wires remain unchanged in position. The patient is status post median sternotomy. There is calcification of the aortic arch. The lungs are clear. No pneumothorax. No pleural effusions. No evidence of acute intrathoracic disease. [id number] [facility]
== END 2021-05-09 13:05 | disposition home or self-care (01) ==
LOC: LB.ED 11:05
DX: I11.0 Hypertensive heart disease with heart failure (principal); I50.9 Heart failure, unspecified; E78.00 Pure hypercholesterolemia, unspecified; I10 Essential (primary) hypertension; I25.2 Old myocardial infarction; J44.9 Chronic obstructive pulmonary disease, unspecified; Z79.82 Long term (current) use of aspirin; Z79.899 Other long term (current) drug therapy
CPT/HCPCS: 36415; 71045; 80053; 85025; 99283-25

== ENCOUNTER 2021-05-12 00:56 | Inpatient (IN) | payer MEDICARE ==
[2021-05-12] MEDS ORDERED: Albuterol/Ipratropium 3.0-0.5 MG/3 ML Neb Soln NEB ONE (01:33)
[2021-05-12] MEDS: Sodium Chloride 0.9% 1,000 ML IV ONE ×2 (01:59→05:30)
[2021-05-12] MEDS ORDERED: cefTRIAXone 1 GM in Sodium Chloride 0.9% 50 ML IV ONE (02:28)
[2021-05-12] MEDS ORDERED: Azithromycin 500 MG in Sodium Chloride 0.9% 250 ML IV ONE (02:28)
[2021-05-12] MEDS ORDERED: Norepinephrine 4 MG in Dextrose 5% in Water 246 ML IV SCH ×2 (02:45)
[2021-05-12] MEDS ORDERED: cefTRIAXone 1 GM Vial ONE (02:51)
[2021-05-12] MEDS ORDERED: Nitroglycerin 0.4 MG Tab.SL SL PRN (03:55)
[2021-05-12] MEDS ORDERED: Acetaminophen 650 MG Tab.ER PO PRN (03:55)
[2021-05-12] MEDS ORDERED: Promethazine 6.25 MG in Sodium Chloride 0.9% 50 ML IV PRN (03:59)
[2021-05-12] MEDS ORDERED: Bumetanide 1 MG Tab PO SCH (04:00)
[2021-05-12] MEDS ORDERED: Morphine 2 MG/ML SYRINGE ONE (04:34)
[2021-05-12] MEDS: Morphine 2 MG/ML SYRINGE IVPUSH PRN (04:35)
[2021-05-12] MEDS ORDERED: Furosemide 40 MG/4 ML VIAL IVPUSH ONE (05:01)
--- NOTE | 2021-05-12 05:12 | EDM.PDOC ---
ED HPI GENERAL MEDICAL PROBLEM - General Chief Complaint: Respiratory Problem Stated Complaint: WEAKNESS Time Seen by Provider: 05/12/21 01:00 - History of Present Illness INITIAL COMMENTS - FREE TEXT/NARRATIVE: Pt comes in by EMS with C/O SOB and Hypoxia. His found him gasping in bed. No falls or injuries. 02 sats improved to the mid 80's with O2 @ 10 liters per mask. - Related Data Allergies Allergy/AdvReac Type Severity Reaction Status Date / Time No Known Allergies Allergy Verified 05/09/21 12:01 Home Meds: Home Meds Apixaban [Eliquis] 5 mg PO BID 04/30/18 [History] atorvaSTATin [Lipitor] 40 mg PO BEDTIME 06/23/18 [History] Acetaminophen [Tylenol Arthritis Pain] 650 mg PO Q4H PRN tab.er 07/03/18 [Rx] Levothyroxine Sodium [Synthroid] 100 mcg PO ACBREAKFAST 30 Days #30 tab 07/03/18 [Rx] Nitroglycerin [Nitrostat] 0.4 mg SL Q5M PRN tab.sl 07/03/18 [Rx] Tamsulosin [Flomax] 0.4 mg PO BEDTIME 30 Days #30 cap.er 07/03/18 [Rx] Famotidine [Pepcid] 20 mg PO BID 10/02/18 [History] Aspirin 81 mg PO DAILY 03/14/21 [History] Bumetanide [Bumex] 1 mg PO ASDIRECTED 03/14/21 [History] Metoprolol Tartrate 25 mg PO BID 03/14/21 [History] timoloL maleate [Timoptic 0.25% [facility] Soln] 1 drop EYELF BEDTIME 03/14/21 [History] Budesonide/Formoterol [Symbicort 160-4.5 MCG] 1 puff INH BID 04/21/21 [History] Morphine [Morphine 10 MG/5 ML] 2.5 ml PO Q4HR PRN 04/21/21 [History] Ondansetron [Zofran ODT] 4 mg PO Q4HR PRN 04/21/21 [History] hydrOXYzine HCL [Atarax] 25 mg PO QID 04/21/21 [History] Amiodarone HCl 400 mg PO BID #60 tablet 09/03/21 [Rx] Past Medical History HEENT History: Reports: Glaucoma, Impaired Vision Cardiovascular History: Reports: Afib, Bypass, High Cholesterol, Hypertension, [place], Pacemaker Other Cardiovascular History: 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 Headaches Endocrine/Metabolic History: Reports: Hypoparathyroidism Hematologic History: Reports: Anticoagulation Therapy Oncologic (Cancer) History: Reports: None Dermatologic History: Reports: Other (See Below) Other Dermatologic History: scabbed rash on chest and left arm - Infectious Disease History Infectious Disease History: Reports: Chicken Pox, Shingles - Past Surgical History HEENT Surgical History: Reports: None Cardiovascular Surgical History: Reports: Coronary Artery Bypass, Coronary Artery Stent, Pacer Other Cardiovascular Surgeries/Procedures: 1992 GI Surgical History: Reports: None Neurological Surgical History: Reports: Lumbar Spine, Thoracic Spine Other Neurological Surgeries/Procedures: B feet: decrease in sensation, no pain in LEs Musculoskeletal Surgical History: Reports: Other (See Below) Other Musculoskeletal Surgeries/Procedures:: laminectomy Dermatological Surgical History: Reports: None Social & Family History - Family History Family Medical History: No Pertinent Family History - Caffeine Use Caffeine Use: Reports: Coffee ED ROS GENERAL - Review of Systems Review Of Systems: Comprehensive ROS is negative, except as noted in HPI. Constitutional: Reports: Weakness Respiratory: Reports: Shortness of Breath, Wheezing Skin: Reports: Dryness Neurological: Reports: Trouble Speaking (due to weakness.), Other ED EXAM, GENERAL - Physical Exam Exam: See Below Free Text/Narrative:: Pt is drowsy but does respond to verbal stimuli. He denies pain, but states it's hard to breath. V.S. initially are BP51/16 - P 142 - sats are 100% on 10 liters - Afebrile. General Appearance: Lethargic, Mild Distress Eye Exam: Bilateral Eye: PERRL Throat/Mouth: Other (Mucous membranes are dry.) Respiratory/Chest: Decreased Breath Sounds, Crackles (in all lobes.), Rhonchi Cardiovascular: Other (pulse varies from 160 down to 140's. Rhythm is often paced.) Course - Vital Signs Last Recorded V/S: Last Vital Signs Temp 98.3 F 05/12/21 08:00 Pulse 95 05/12/21 08:00 Resp 16 05/12/21 08:00 BP 107/72 05/12/21 08:00 Pulse Ox 96 05/12/21 08:00 - Orders/Labs/Meds Orders: Active Orders 24 hr Category Date Time Status EKG Documentation Completion [RC] ASDIRECTED Care 05/12/21 01:35 Active RT Aerosol Therapy [RC] ASDIRECTED Care 05/12/21 01:34 Active CULTURE BLOOD [BC] Stat Lab 05/12/21 02:20 Received UA W/MICROSCOPIC [URIN] Stat Lab 05/12/21 03:03 Ordered Morphine Med 05/12/21 03:50 Active 2 mg IVPUSH Q1H PRN Norepinephrine [Levophed] 4 mg Med 05/12/21 02:45 Active Dextrose 5% in Water 246 ml IV TITRATE EKG 12 Lead [EK] Stat Ther 05/12/21 01:35 Ordered Medication Orders Acetaminophen (Acetaminophen 650 Mg Tab.Er) 650 mg PO Q4H PRN PRN Reason: Pain (severe 7-10) Apixaban (Apixaban 5 Mg Tab) 5 mg PO BID [facility] Last Admin: 05/12/21 08:30 Dose: 5 mg Documented by: FREDO Aspirin (Aspirin 81 Mg Tab.Chew) 81 mg PO DAILY [facility] Last Admin: 05/12/21 08:31 Dose: 81 mg Documented by: FREDO Bumetanide (Bumetanide 1 Mg Tab) 1 mg PO ASDIRECTED [facility] Famotidine (Famotidine 20 Mg Tab) 20 mg PO BID [facility] Last Admin: 05/12/21 08:31 Dose: 20 mg Documented by: FREDO Hydroxyzine HCl (Hydroxyzine Hcl 25 Mg Tab) 25 mg PO QID [facility] Last Admin: 05/12/21 08:31 Dose: 25 mg Documented by: FREDO Norepinephrine Bitartrate 4 mg (/ Dextrose/Water) 250 mls @ 7.5 mls/hr IV TITRATE BITA; Protocol Last Titration: 05/12/21 06:00 Dose: 2.5 mcg/min, 9.375 mls/hr Documented by: Admin: 05/12/21 04:10 Dose: 2 mcg/min, 7.5 mls/hr Documented by: HOPWSTE Promethazine HCl 6.25 mg/ (Sodium Chloride) 50.25 mls @ 200 mls/hr IV Q6H PRN PRN Reason: Nausea/Vomiting Levothyroxine Sodium (Levothyroxine 100 Mcg Tab) 100 mcg PO ACBREAKFAST [facility] Last Admin: 05/12/21 08:30 Dose: 100 mcg Documented by: FREDO Metoprolol Tartrate (Metoprolol Tartrate 25 Mg Tab) 25 mg PO BID BITA Last Admin: 05/12/21 08:31 Dose: Not Given Documented by: FREDO Morphine Sulfate (Morphine 2 Mg/Ml Syringe) 2 mg IVPUSH Q1H PRN PRN Reason: Pain Last Admin: 05/12/21 04:35 Dose: 2 mg Documented by: DANIS Nitroglycerin (Nitroglycerin 0.4 Mg Tab.Sl) 0.4 mg SL Q5M PRN PRN Reason: Chest Pain Non-Formulary Medication (Amiodarone Hcl [Amiodarone Hcl]) 400 mg PO BID [facility] Last Admin: 05/12/21 08:45 Dose: 400 mg Documented by: FREDO Non-Formulary Medication (Budesonide/Formoterol [Symbicort 160-4.5 Mcg]) 1 puff INH BID [facility] Non-Formulary Medication (Timolol Maleate [Timoptic 0.25% Ophth Soln]) 1 drop EYELF BEDTIME BITA Ondansetron HCl (Ondansetron 4 Mg Tab.Dis) 4 mg PO Q4HR PRN PRN Reason: Nausea Tamsulosin HCl (Tamsulosin 0.4 Mg Cap.Er) 0.4 mg PO BEDTIME [facility] Labs: Laboratory Tests 05/12/21 05/12/21 05/12/21 Range/Units 02:20 02:20 02:20 WBC 16.0 H D (4.0-11.0) K/uL RBC 3.22 L (4.50-6.50) M/uL Hgb 10.3 L (13.0-18.0) g/dL Hct 31.7 L (40.0-54.0) % MCV 98 H (76-96) fL MCH 32.0 (27.0-32.0) pg MCHC 32.5 (31.0-35.0) g/dL RDW 14.8 (11.0-16.0) % Plt Count 262 (150-400) K/uL MPV 10.8 H (6.0-10.0) fL Neut % (Auto) 90.5 H (45.0-70.0) % Lymph % (Auto) 3.1 L (20.0-40.0) % [place] % (Auto) 6.3 (3.0-10.0) % Eos % (Auto) 0.0 L (1.0-5.0) % Baso % (Auto) 0.1 (0.0-0.5) % Neut # (Auto) 14.45 H (2.00-7.50) K/uL Lymph # (Auto) 0.49 L (1.50-4.00) K/uL [place] # (Auto) 1.00 H (0.20-0.80) K/uL Eos # (Auto) 0.00 L (0.04-0.40) K/uL Baso # (Auto) 0.01 L (0.02-0.10) K/uL Sodium 137 (136-145) mmol/L Potassium 4.6 (3.5-5.1) mmol/L Chloride 105 (98-107) mmol/L Carbon Dioxide 25.0 (21.0-32.0) mmol/L Anion Gap 11.6 (5.0-15.0) mmol/L BUN 20 (8-26) mg/dL Creatinine 2.00 H (0.70-1.30) mg/dL Est Cr Clr Drug Dosing TNP Estimated GFR (MDRD) 32 L (>60) MLS/MIN BUN/Creatinine Ratio 10.0 (6-25) Glucose 103 H (74-100) mg/dL Lactic Acid (0.4-2.0) mmol/L Calcium 7.9 L (8.5-10.1) mg/dL Total Bilirubin 1.2 H D (0.0-1.0) mg/dL AST 29 (15-37) U/L ALT 24 (12-78) U/L Alkaline Phosphatase 69 (46-116) U/L Troponin I (0.000-0.060) ng/mL B-Natriuretic Peptide 07540 H D (0-450) pg/mL Total Protein 6.7 (6.4-8.2) g/dL Albumin 2.2 L (3.4-5.0) g/dL Globulin 4.5 H (2.2-4.2) g/dL Albumin/Globulin Ratio 0.5 L (0.8-2.0) SARS-CoV-2 RNA ([place]) (NEGATIVE) 05/12/21 05/12/21 05/12/21 Range/Units 02:20 02:20 02:41 WBC (4.0-11.0) K/uL RBC (4.50-6.50) M/uL Hgb (13.0-18.0) g/dL Hct (40.0-54.0) % MCV (76-96) fL MCH (27.0-32.0) pg MCHC (31.0-35.0) g/dL RDW (11.0-16.0) % Plt Count (150-400) K/uL MPV (6.0-10.0) fL Neut % (Auto) (45.0-70.0) % Lymph % (Auto) (20.0-40.0) % [place] % (Auto) (3.0-10.0) % Eos % (Auto) (1.0-5.0) % Baso % (Auto) (0.0-0.5) % Neut # (Auto) (2.00-7.50) K/uL Lymph # (Auto) (1.50-4.00) K/uL [place] # (Auto) (0.20-0.80) K/uL Eos # (Auto) (0.04-0.40) K/uL Baso # (Auto) (0.02-0.10) K/uL Sodium (136-145) mmol/L Potassium (3.5-5.1) mmol/L Chloride (98-107) mmol/L Carbon Dioxide (21.0-32.0) mmol/L Anion Gap (5.0-15.0) mmol/L BUN (8-26) mg/dL Creatinine (0.70-1.30) mg/dL Est Cr Clr Drug Dosing Estimated GFR (MDRD) (>60) MLS/MIN BUN/Creatinine Ratio (6-25) Glucose (74-100) mg/dL Lactic Acid 3.0 H (0.4-2.0) mmol/L Calcium (8.5-10.1) mg/dL Total Bilirubin (0.0-1.0) mg/dL AST (15-37) U/L ALT (12-78) U/L Alkaline Phosphatase (46-116) U/L Troponin I 0.025 D (0.000-0.060) ng/mL B-Natriuretic Peptide (0-450) pg/mL Total Protein (6.4-8.2) g/dL Albumin (3.4-5.0) g/dL Globulin (2.2-4.2) g/dL Albumin/Globulin Ratio (0.8-2.0) SARS-CoV-2 RNA ([place]) Negative (NEGATIVE) Meds: Medications Generic Name Dose Route Start Last Admin Trade Name Freq PRN Reason Stop Dose Admin Acetaminophen 650 mg 05/12/21 03:55 Acetaminophen 650 Mg Tab.Er PO Q4H PRN Pain (severe 7-10) Apixaban 5 mg 05/12/21 08:00 05/12/21 08:30 Apixaban 5 Mg Tab PO 5 mg BID BITA Administration Aspirin 81 mg 05/12/21 08:00 05/12/21 08:31 Aspirin 81 Mg Tab.Chew PO 81 mg DAILY BITA Administration Bumetanide 1 mg 05/12/21 04:00 Bumetanide 1 Mg Tab PO ASDIRECTED BITA Famotidine 20 mg 05/12/21 08:00 05/12/21 08:31 Famotidine 20 Mg Tab PO 20 mg BID BITA Administration Hydroxyzine HCl 25 mg 05/12/21 08:00 05/12/21 08:31 Hydroxyzine Hcl 25 Mg Tab PO 25 mg QID BITA Administration Norepinephrine Bitartrate 4 mg 250 mls @ 7.5 mls/hr 05/12/21 02:45 05/12/21 06:00 / Dextrose/Water IV 2.5 mcg/min TITRATE BITA 9.375 mls/hr Titration Protocol 2 MCG/MIN Promethazine HCl 6.25 mg/ 50.25 mls @ 200 mls/hr 05/12/21 03:59 Sodium Chloride IV Q6H PRN Nausea/Vomiting Levothyroxine Sodium 100 mcg 05/12/21 07:00 05/12/21 08:30 Levothyroxine 100 Mcg Tab PO 100 mcg ACBREAKFAST BITA Administration Metoprolol Tartrate 25 mg 05/12/21 08:00 05/12/21 08:31 Metoprolol Tartrate 25 Mg Tab PO Not Given BID BITA Morphine Sulfate 2 mg 05/12/21 03:50 05/12/21 04:35 Morphine 2 Mg/Ml Syringe IVPUSH 2 mg Q1H PRN Administration Pain Nitroglycerin 0.4 mg 05/12/21 03:55 Nitroglycerin 0.4 Mg Tab.Sl SL Q5M PRN Chest Pain Non-Formulary Medication 400 mg 05/12/21 08:00 05/12/21 08:45 Amiodarone Hcl [Amiodarone Hcl] PO 400 mg BID BITA Administration Non-Formulary Medication 1 puff 05/12/21 08:00 Budesonide/Formoterol [Symbicort 160-4.5 Mcg] INH BID BITA Non-Formulary Medication 1 drop 05/12/21 20:00 Timolol Maleate [Timoptic 0.25% Ophth Soln] EYELF BEDTIME BITA Ondansetron HCl 4 mg 05/12/21 03:55 Ondansetron 4 Mg Tab.Dis PO Q4HR PRN Nausea Tamsulosin HCl 0.4 mg 05/12/21 20:00 Tamsulosin 0.4 Mg Cap.Er PO BEDTIME BITA Discontinued Medications Generic Name Dose Route Start Last Admin Trade Name Freq PRN Reason Stop Dose Admin Albuterol/Ipratropium 3 ml 05/12/21 01:33 05/12/21 01:34 Albuterol/Ipratropium 3.0-0.5 Mg/3 Ml Neb Soln NEB 05/12/21 01:34 3 ml ONETIME ONE Administration Amiodarone HCl Confirm 05/12/21 08:37 05/12/21 08:44 Amiodarone 200 Mg Tab Administered 05/12/21 08:38 Not Given Dose 400 mg .ROUTE .STK-MED ONE Ceftriaxone Sodium Confirm 05/12/21 02:51 05/12/21 06:07 Ceftriaxone 1 Gm Vial Administered 05/12/21 02:52 Not Given Dose 1 gm .ROUTE .STK-MED ONE Furosemide 40 mg 05/12/21 05:01 Furosemide 40 Mg/4 Ml Vial IVPUSH 05/12/21 05:02 NOW ONE Furosemide Confirm 05/12/21 07:50 05/12/21 08:25 Furosemide 40 Mg/4 Ml Vial Administered 05/12/21 07:51 Not Given Dose 40 mg .ROUTE .STK-MED ONE Sodium Chloride 1,000 mls @ 500 mls/hr 05/12/21 01:52 05/12/21 05:30 Normal Saline IV 05/12/21 03:51 500 mls/hr .BOLUS ONE Administration Ceftriaxone Sodium 1 gm/ 50 mls @ 100 mls/hr 05/12/21 02:28 05/12/21 02:46 Sodium Chloride IV 05/12/21 02:57 100 mls/hr ONETIME ONE Administration Azithromycin 500 mg/ Sodium 250 mls @ 250 mls/hr 05/12/21 02:28 05/12/21 03:25 Chloride IV 05/12/21 03:27 250 mls/hr ONETIME ONE Administration Morphine Sulfate Confirm 05/12/21 04:34 05/12/21 06:08 Morphine 2 Mg/Ml Syringe Administered 05/12/21 04:35 Not Given Dose 2 mg .ROUTE .STK-MED ONE - Radiology Interpretation Free Text/Narrative:: CXR shows possible Pneumonia on the Rt mid and lower lobe. - Re-Assessments/Exams Free Text/Narrative Re-Assessment/Exam: 05/12/21 08:58 Labs reveal a WBC of 16,000 - Neutrophils 90 - BNP 21,828 - Lactic acid 3.0 - BUN 20 - CREAT - 2.0 - Covid is negative. Pt is diagnosed with Pneumonia, Acute CHF - and Sepsis. He was given Zofran IV - Normal saline bolus - Rocephin and Zithromax. His condition started to improve. BP slowly came up to 90/60. Levophed was started at 4. This also improved his BP to 133/60. I discussed his code status with family, and he is currently full code. The pt refuses to be transferred anywhere. He wants to stay here. I called the E-hospitalist Dr Clements, who told me he could not accept this pt - he is too critical and a full code. I then had further discussion with the Pt and family, who now agreed that he should be DNR/DNI. I then called Dr Clements back and he still would not accept the pt, because he was on 10 liters of 02 and a pressor. He told me again the pt should not be in [place]. I relayed this information to the pt, who is more alert now and family. He does not want to be transferred. They will take their chances here he told me. His 02 has been weaned down to 6 liters by this time. The pt was taken to the floor - A dale was placed. His PCP Dr Ferrer will be called in the morning to assist with this pt's care. Departure - Departure Time of Disposition: 05:00 Disposition: DC/Tfer to [facility] 02 Condition: Fair, Critical Clinical Impression: Sepsis associated hypotension Congestive heart failure Qualifiers: Heart failure type: combined systolic and diastolic Heart failure chronicity: acute on chronic Qualified Code(s): I50.43 - Acute on chronic combined systolic (congestive) and diastolic (congestive) heart failure Pneumonia Qualifiers: Pneumonia type: due to unspecified organism Laterality: right Lung location: lower lobe of lung Qualified Code(s): J18.9 - Pneumonia, unspecified organism - Discharge Information *PRESCRIPTION DRUG MONITORING PROGRAM REVIEWED*: Yes *COPY OF PRESCRIPTION DRUG MONITORING REPORT IN PATIENT JASPAL: Yes Sepsis Event Note (ED) - Focused Exam Vital Signs: Vital Signs Temp Pulse Resp BP Pulse Ox 05/12/21 03:30 113 H 20 76/47 L 100 05/12/21 03:00 120 H 20 61/36 L 100 05/12/21 02:30 130 H 24 H 62/44 L 95 05/12/21 02:00 144 H 22 H 62/10 L 95 05/12/21 01:30 98.9 F 144 H 28 H 51/16 L 81 L - My Orders Last 24 Hours: My Active Orders 05/12/21 01:34 RT Aerosol Therapy [RC] ASDIRECTED 05/12/21 01:35 EKG Documentation Completion [RC] ASDIRECTED EKG 12 Lead [EK] Stat 05/12/21 02:20 CULTURE BLOOD [BC] Stat 05/12/21 02:45 Norepinephrine [Levophed] 4 mg Dextrose 5% in Water 246 ml IV TITRATE 05/12/21 03:03 UA W/MICROSCOPIC [URIN] Stat 05/12/21 03:50 Morphine 2 mg IVPUSH Q1H PRN - Assessment/Plan Last 24 Hours: My Active Orders 05/12/21 01:34 RT Aerosol Therapy [RC] ASDIRECTED 05/12/21 01:35 EKG Documentation Completion [RC] ASDIRECTED EKG 12 Lead [EK] Stat 05/12/21 02:20 CULTURE BLOOD [BC] Stat 05/12/21 02:45 Norepinephrine [Levophed] 4 mg Dextrose 5% in Water 246 ml IV TITRATE 05/12/21 03:03 UA W/MICROSCOPIC [URIN] Stat 05/12/21 03:50 Morphine 2 mg IVPUSH Q1H PRN
[2021-05-12] MEDS ORDERED: Furosemide 40 MG/4 ML VIAL ONE (07:50)
--- NOTE | 2021-05-12 08:11 | CR ---
Date of Service: 05/12/21 Clinical Data: SOB. AP CHEST: Comparison is made to a prior exam dated 05/09/21. The patient has taken a poor inspiration. The cardiac pacer and pacer wires remain unchanged in position. The patient is status post median sternotomy. The heart is enlarged, unchanged. There is calcification of the aortic arch. There is increased density in both lung bases consistent with basilar atelectasis or infiltrate. Pneumonia should be considered. There is slight blunting of both costophrenic angles suggesting small bilateral pleural effusions. No other significant findings. No pneumothorax. [id number] [facility]
[2021-05-12] MEDS: Apixaban 5 MG Tab PO SCH ×2 (08:30→20:00)
[2021-05-12] MEDS: Levothyroxine 100 MCG Tab PO SCH (08:30)
[2021-05-12] MEDS: Metoprolol Tartrate 25 MG Tab PO SCH (08:31)
[2021-05-12] MEDS: Aspirin 81 MG Tab.Chew PO SCH (08:31)
[2021-05-12] MEDS: hydrOXYzine HCl 25 MG Tab PO SCH ×3 (08:31→17:40)
[2021-05-12] MEDS: Famotidine 20 MG Tab PO SCH ×2 (08:31→20:00)
[2021-05-12] MEDS ORDERED: Amiodarone 200 MG Tab ONE (08:37)
[2021-05-12] MEDS: AMIODARONE HCL 400 MG PO SCH ×2 (08:45→20:00)
[2021-05-12] MEDS ORDERED: Sodium Chloride 0.9% 1,000 ML IV SCH ×2 (09:00→18:00)
[2021-05-12] MEDS ORDERED: Albumin 25% 200 ML IV ONE (09:02)
[2021-05-12] MEDS: Albumin 25% 200 ML IV SCH (11:40)
--- NOTE | 2021-05-12 12:49 | ADMIT ---
HISTORY OF PRESENT ILLNESS: This patient was admitted through the ER with pneumonia; sepsis; and CHF, acute on chronic. He was treated in the emergency room initially with Zofran, normal saline bolus as well as Rocephin and Zithromax given IV. He was also started on Levophed because of extreme hypotension. The patient came into the ER with an initial BP read of 51/16. His blood pressure came up to 90/60 with fluids, and when Levophed was started and he was moved to the floor, his blood pressure was 133/60. The patient's condition improved during this timeframe of about 4 hours. The patient refuses to be transferred to an another facility, and I did consult with the hospitalist service, Dr. Clements, who refused to accept the patient because of his critical status, stating initially, he needed to have his code level changed or be transferred to another facility. I then had further discussion with the family and the patient and it was agreed he would be switched to DNR/DNI. I then consulted with Dr. Clements a second time, who again refused to accept the patient because he came in on 10 L of oxygen and we had him on a pressor med / Levophed. I had further discussion with the family who was adamant about him not being transferred as well as the patient saying this. By this time, he is more alert and is able to talk in at least 2-3 word sentences initially. He was drowsy, but was responsive to verbal stimuli. O2 had been weaned down to 6 L by the time he was taken to the floor and a Ivey catheter was placed. I had a discussion with nursing staff here, and since his condition had been slowly improving, we will admit him and consult with his primary care provider, Dr. Ferrer in the morning, who will hopefully get involved with his care. TREATMENT PLAN: The patient initial labs reveal a WBC of 16,000, neutrophils 90. BUN 20, creatinine 2.0. Lactic acid 3.0. BNP 21,828. COVID test is negative chest x- ray does reveal pneumonia on the right mid and lower lobes. It appears at least a possible pneumonia by the time the patient was admitted to the floor. His condition has definitely improved. CRS/MODL /[id number] OMKAR
--- NOTE | 2021-05-12 14:10 | PCM.PN ---
- General Info Date of Service: 05/12/21 Subjective Update: This is a 85yo M who arrived in the ER full code with decreasing oxygen saturation, tachycardia, low blood pressure at 50/16 and delirium. Patient has a current history of pancreatic cancer. He was resuscitated and placed on pressors, stabilized and admitted to the ICU. He is currently alert and oriented on Day 1 of ICU. In's 2.45L and Outs 2.8L. Patient on current levophed titration to maintain his BP above 100/60. He remains slightly tachycardic. He was d iagnosed with pneumonia and sepsis. He has been weaned to 3L Oxygen on NC. Functional Status: Reports: Pain Controlled - Review of Systems General: Reports: Weakness HEENT: Reports: No Symptoms Pulmonary: Reports: Shortness of Breath Cardiovascular: Reports: Dyspnea on Exertion Gastrointestinal: Reports: Decreased Appetite Genitourinary: Reports: No Symptoms Musculoskeletal: Reports: No Symptoms Skin: Reports: Pallor Neurological: Reports: Confusion, Weakness Psychiatric: Reports: Confusion - Patient Data Vitals - Most Recent: Last Vital Signs Temp 36.8 C 05/12/21 08:00 Pulse 95 05/12/21 08:00 Resp 16 05/12/21 08:00 BP 107/72 05/12/21 08:00 Pulse Ox 96 05/12/21 08:00 Weight - Most Recent: 63.503 kg I&O - Last 24 Hours: Intake & Output 05/11/21 05/12/21 05/12/21 22:59 06:59 14:59 Output Total 1800 600 Balance -1800 -600 Lab Results Last 24 Hours: Laboratory Results - last 24 hr 05/12/21 05/12/21 05/12/21 Range/Units 02:20 02:20 02:20 WBC 16.0 H D (4.0-11.0) K/uL RBC 3.22 L (4.50-6.50) M/uL Hgb 10.3 L (13.0-18.0) g/dL Hct 31.7 L (40.0-54.0) % MCV 98 H (76-96) fL MCH 32.0 (27.0-32.0) pg MCHC 32.5 (31.0-35.0) g/dL RDW 14.8 (11.0-16.0) % Plt Count 262 (150-400) K/uL MPV 10.8 H (6.0-10.0) fL Neut % (Auto) 90.5 H (45.0-70.0) % Lymph % (Auto) 3.1 L (20.0-40.0) % [place] % (Auto) 6.3 (3.0-10.0) % Eos % (Auto) 0.0 L (1.0-5.0) % Baso % (Auto) 0.1 (0.0-0.5) % Neut # (Auto) 14.45 H (2.00-7.50) K/uL Lymph # (Auto) 0.49 L (1.50-4.00) K/uL [place] # (Auto) 1.00 H (0.20-0.80) K/uL Eos # (Auto) 0.00 L (0.04-0.40) K/uL Baso # (Auto) 0.01 L (0.02-0.10) K/uL Sodium 137 (136-145) mmol/L Potassium 4.6 (3.5-5.1) mmol/L Chloride 105 (98-107) mmol/L Carbon Dioxide 25.0 (21.0-32.0) mmol/L Anion Gap 11.6 (5.0-15.0) mmol/L BUN 20 (8-26) mg/dL Creatinine 2.00 H (0.70-1.30) mg/dL Est Cr Clr Drug Dosing TNP Estimated GFR (MDRD) 32 L (>60) MLS/MIN BUN/Creatinine Ratio 10.0 (6-25) Glucose 103 H (74-100) mg/dL Lactic Acid (0.4-2.0) mmol/L Calcium 7.9 L (8.5-10.1) mg/dL Total Bilirubin 1.2 H D (0.0-1.0) mg/dL AST 29 (15-37) U/L ALT 24 (12-78) U/L Alkaline Phosphatase 69 (46-116) U/L Troponin I (0.000-0.060) ng/mL B-Natriuretic Peptide 81454 H D (0-450) pg/mL Total Protein 6.7 (6.4-8.2) g/dL Albumin 2.2 L (3.4-5.0) g/dL Globulin 4.5 H (2.2-4.2) g/dL Albumin/Globulin Ratio 0.5 L (0.8-2.0) SARS-CoV-2 RNA ([place]) (NEGATIVE) 05/12/21 05/12/21 05/12/21 Range/Units 02:20 02:20 02:41 WBC (4.0-11.0) K/uL RBC (4.50-6.50) M/uL Hgb (13.0-18.0) g/dL Hct (40.0-54.0) % MCV (76-96) fL MCH (27.0-32.0) pg MCHC (31.0-35.0) g/dL RDW (11.0-16.0) % Plt Count (150-400) K/uL MPV (6.0-10.0) fL Neut % (Auto) (45.0-70.0) % Lymph % (Auto) (20.0-40.0) % [place] % (Auto) (3.0-10.0) % Eos % (Auto) (1.0-5.0) % Baso % (Auto) (0.0-0.5) % Neut # (Auto) (2.00-7.50) K/uL Lymph # (Auto) (1.50-4.00) K/uL [place] # (Auto) (0.20-0.80) K/uL Eos # (Auto) (0.04-0.40) K/uL Baso # (Auto) (0.02-0.10) K/uL Sodium (136-145) mmol/L Potassium (3.5-5.1) mmol/L Chloride (98-107) mmol/L Carbon Dioxide (21.0-32.0) mmol/L Anion Gap (5.0-15.0) mmol/L BUN (8-26) mg/dL Creatinine (0.70-1.30) mg/dL Est Cr Clr Drug Dosing Estimated GFR (MDRD) (>60) MLS/MIN BUN/Creatinine Ratio (6-25) Glucose (74-100) mg/dL Lactic Acid 3.0 H (0.4-2.0) mmol/L Calcium (8.5-10.1) mg/dL Total Bilirubin (0.0-1.0) mg/dL AST (15-37) U/L ALT (12-78) U/L Alkaline Phosphatase (46-116) U/L Troponin I 0.025 D (0.000-0.060) ng/mL B-Natriuretic Peptide (0-450) pg/mL Total Protein (6.4-8.2) g/dL Albumin (3.4-5.0) g/dL Globulin (2.2-4.2) g/dL Albumin/Globulin Ratio (0.8-2.0) SARS-CoV-2 RNA ([place]) Negative (NEGATIVE) Med Orders - Current: Current Medications Acetaminophen (Acetaminophen 650 Mg Tab.Er) 650 mg PO Q4H PRN PRN Reason: Pain (severe 7-10) Apixaban (Apixaban 5 Mg Tab) 5 mg PO BID [facility] Last Admin: 05/12/21 08:30 Dose: 5 mg Documented by: Aspirin (Aspirin 81 Mg Tab.Chew) 81 mg PO DAILY [facility] Last Admin: 05/12/21 08:31 Dose: 81 mg Documented by: Bumetanide (Bumetanide 1 Mg Tab) 1 mg PO ASDIRECTED [facility] Famotidine (Famotidine 20 Mg Tab) 20 mg PO BID [facility] Last Admin: 05/12/21 08:31 Dose: 20 mg Documented by: Hydroxyzine HCl (Hydroxyzine Hcl 25 Mg Tab) 25 mg PO QID [facility] Last Admin: 05/12/21 13:26 Dose: Not Given Documented by: Norepinephrine Bitartrate 4 mg (/ Dextrose/Water) 250 mls @ 7.5 mls/hr IV TITRATE [facility]; Protocol Last Titration: 05/12/21 06:00 Dose: 2.5 mcg/min, 9.375 mls/hr Documented by: Promethazine HCl 6.25 mg/ (Sodium Chloride) 50.25 mls @ 200 mls/hr IV Q6H PRN PRN Reason: Nausea/Vomiting Ceftriaxone Sodium 1 gm/ (Sodium Chloride) 50 mls @ 100 mls/hr IV Q24H [facility] Azithromycin 500 mg/ Sodium (Chloride) 250 mls @ 250 mls/hr IV Q24H [facility] Albumin Human (Flexbumin 25%) 200 mls @ 50 mls/hr IV DAILY [facility] Last Admin: 05/12/21 11:40 Dose: 50 mls/hr Documented by: Levothyroxine Sodium (Levothyroxine 100 Mcg Tab) 100 mcg PO ACBREAKFAST [facility] Last Admin: 05/12/21 08:30 Dose: 100 mcg Documented by: Metoprolol Tartrate (Metoprolol Tartrate 25 Mg Tab) 25 mg PO BID [facility] Last Admin: 05/12/21 08:31 Dose: Not Given Documented by: Morphine Sulfate (Morphine 2 Mg/Ml Syringe) 2 mg IVPUSH Q1H PRN PRN Reason: Pain Last Admin: 05/12/21 04:35 Dose: 2 mg Documented by: Nitroglycerin (Nitroglycerin 0.4 Mg Tab.Sl) 0.4 mg SL Q5M PRN PRN Reason: Chest Pain Non-Formulary Medication (Amiodarone Hcl [Amiodarone Hcl]) 400 mg PO BID [facility] Last Admin: 05/12/21 08:45 Dose: 400 mg Documented by: Non-Formulary Medication (Budesonide/Formoterol [Symbicort 160-4.5 Mcg]) 1 puff INH BID [facility] Last Admin: 05/12/21 13:24 Dose: Not Given Documented by: Non-Formulary Medication (Timolol Maleate [Timoptic 0.25% Ophth Soln]) 1 drop EYELF BEDTIME [facility] Ondansetron HCl (Ondansetron 4 Mg Tab.Dis) 4 mg PO Q4HR PRN PRN Reason: Nausea Tamsulosin HCl (Tamsulosin 0.4 Mg Cap.Er) 0.4 mg PO BEDTIME [facility] Discontinued Medications Albuterol/Ipratropium (Albuterol/Ipratropium 3.0-0.5 Mg/3 Ml Neb Soln) 3 ml NEB ONETIME ONE Stop: 05/12/21 01:34 Last Admin: 05/12/21 01:34 Dose: 3 ml Documented by: Amiodarone HCl (Amiodarone 200 Mg Tab) Confirm Administered Dose 400 mg .ROUTE .STK-MED ONE Stop: 05/12/21 08:38 Last Admin: 05/12/21 08:44 Dose: Not Given Documented by: Ceftriaxone Sodium (Ceftriaxone 1 Gm Vial) Confirm Administered Dose 1 gm .ROUTE .STK-MED ONE Stop: 05/12/21 02:52 Last Admin: 05/12/21 06:07 Dose: Not Given Documented by: Furosemide (Furosemide 40 Mg/4 Ml Vial) 40 mg IVPUSH NOW ONE Stop: 05/12/21 05:02 Last Admin: 05/12/21 09:30 Dose: 40 mg Documented by: Furosemide (Furosemide 40 Mg/4 Ml Vial) Confirm Administered Dose 40 mg .ROUTE .STK-MED ONE Stop: 05/12/21 07:51 Last Admin: 05/12/21 08:25 Dose: Not Given Documented by: Sodium Chloride (Normal Saline) 1,000 mls @ 500 mls/hr IV .BOLUS ONE Stop: 05/12/21 03:51 Last Admin: 05/12/21 05:30 Dose: 500 mls/hr Documented by: Ceftriaxone Sodium 1 gm/ (Sodium Chloride) 50 mls @ 100 mls/hr IV ONETIME ONE Stop: 05/12/21 02:57 Last Admin: 05/12/21 02:46 Dose: 100 mls/hr Documented by: Azithromycin 500 mg/ Sodium (Chloride) 250 mls @ 250 mls/hr IV ONETIME ONE Stop: 05/12/21 03:27 Last Admin: 05/12/21 03:25 Dose: 250 mls/hr Documented by: Albumin Human (Flexbumin 25%) 200 mls @ 100 mls/hr IV Q12HR ONE Stop: 05/12/21 11:01 Morphine Sulfate (Morphine 2 Mg/Ml Syringe) Confirm Administered Dose 2 mg .ROUTE .STK-MED ONE Stop: 05/12/21 04:35 Last Admin: 05/12/21 06:08 Dose: Not Given Documented by: - Exam Quality Assessment: Supplemental Oxygen Urinary Catheter Total Time: 0Days 2Hours General: Alert, Cooperative HEENT: Pupils Equal, Pupils Reactive, EOMI Neck: Supple Lungs: Decreased Breath Sounds, Crackles, Rales, Wheezing Cardiovascular: Regular Rhythm, Tachycardia GI/Abdominal Exam: Abnormal Bowel Sounds (decreased) Extremities: Pedal Edema Peripheral Pulses: 2+: Dorsalis Pedis (L), Dorsalis Pedis (R) Skin: Dry, Intact, Cool Psy/Mental Status: Alert, Normal Affect, Normal Mood - Patient Data Lab Results Last 24 hrs: Laboratory Results - last 24 hr 05/12/21 05/12/21 05/12/21 Range/Units 02:20 02:20 02:20 WBC 16.0 H D (4.0-11.0) K/uL RBC 3.22 L (4.50-6.50) M/uL Hgb 10.3 L (13.0-18.0) g/dL Hct 31.7 L (40.0-54.0) % MCV 98 H (76-96) fL MCH 32.0 (27.0-32.0) pg MCHC 32.5 (31.0-35.0) g/dL RDW 14.8 (11.0-16.0) % Plt Count 262 (150-400) K/uL MPV 10.8 H (6.0-10.0) fL Neut % (Auto) 90.5 H (45.0-70.0) % Lymph % (Auto) 3.1 L (20.0-40.0) % [place] % (Auto) 6.3 (3.0-10.0) % Eos % (Auto) 0.0 L (1.0-5.0) % Baso % (Auto) 0.1 (0.0-0.5) % Neut # (Auto) 14.45 H (2.00-7.50) K/uL Lymph # (Auto) 0.49 L (1.50-4.00) K/uL [place] # (Auto) 1.00 H (0.20-0.80) K/uL Eos # (Auto) 0.00 L (0.04-0.40) K/uL Baso # (Auto) 0.01 L (0.02-0.10) K/uL Sodium 137 (136-145) mmol/L Potassium 4.6 (3.5-5.1) mmol/L Chloride 105 (98-107) mmol/L Carbon Dioxide 25.0 (21.0-32.0) mmol/L Anion Gap 11.6 (5.0-15.0) mmol/L BUN 20 (8-26) mg/dL Creatinine 2.00 H (0.70-1.30) mg/dL Est Cr Clr Drug Dosing TNP Estimated GFR (MDRD) 32 L (>60) MLS/MIN BUN/Creatinine Ratio 10.0 (6-25) Glucose 103 H (74-100) mg/dL Lactic Acid (0.4-2.0) mmol/L Calcium 7.9 L (8.5-10.1) mg/dL Total Bilirubin 1.2 H D (0.0-1.0) mg/dL AST 29 (15-37) U/L ALT 24 (12-78) U/L Alkaline Phosphatase 69 (46-116) U/L Troponin I (0.000-0.060) ng/mL B-Natriuretic Peptide 42518 H D (0-450) pg/mL Total Protein 6.7 (6.4-8.2) g/dL Albumin 2.2 L (3.4-5.0) g/dL Globulin 4.5 H (2.2-4.2) g/dL Albumin/Globulin Ratio 0.5 L (0.8-2.0) SARS-CoV-2 RNA ([place]) (NEGATIVE) 05/12/21 05/12/21 05/12/21 Range/Units 02:20 02:20 02:41 WBC (4.0-11.0) K/uL RBC (4.50-6.50) M/uL Hgb (13.0-18.0) g/dL Hct (40.0-54.0) % MCV (76-96) fL MCH (27.0-32.0) pg MCHC (31.0-35.0) g/dL RDW (11.0-16.0) % Plt Count (150-400) K/uL MPV (6.0-10.0) fL Neut % (Auto) (45.0-70.0) % Lymph % (Auto) (20.0-40.0) % [place] % (Auto) (3.0-10.0) % Eos % (Auto) (1.0-5.0) % Baso % (Auto) (0.0-0.5) % Neut # (Auto) (2.00-7.50) K/uL Lymph # (Auto) (1.50-4.00) K/uL [place] # (Auto) (0.20-0.80) K/uL Eos # (Auto) (0.04-0.40) K/uL Baso # (Auto) (0.02-0.10) K/uL Sodium (136-145) mmol/L Potassium (3.5-5.1) mmol/L Chloride (98-107) mmol/L Carbon Dioxide (21.0-32.0) mmol/L Anion Gap (5.0-15.0) mmol/L BUN (8-26) mg/dL Creatinine (0.70-1.30) mg/dL Est Cr Clr Drug Dosing Estimated GFR (MDRD) (>60) MLS/MIN BUN/Creatinine Ratio (6-25) Glucose (74-100) mg/dL Lactic Acid 3.0 H (0.4-2.0) mmol/L Calcium (8.5-10.1) mg/dL Total Bilirubin (0.0-1.0) mg/dL AST (15-37) U/L ALT (12-78) U/L Alkaline Phosphatase (46-116) U/L Troponin I 0.025 D (0.000-0.060) ng/mL B-Natriuretic Peptide (0-450) pg/mL Total Protein (6.4-8.2) g/dL Albumin (3.4-5.0) g/dL Globulin (2.2-4.2) g/dL Albumin/Globulin Ratio (0.8-2.0) SARS-CoV-2 RNA ([place]) Negative (NEGATIVE) Result Diagrams: 05/12/21 14:00 05/12/21 14:33 Sepsis Event Note - Evaluation Sepsis Screening Result: Possible Sepsis Risk - Focused Exam Vital Signs: Vital Signs Temp Pulse Resp BP Pulse Ox 05/12/21 08:00 36.8 C 95 16 107/72 96 05/12/21 05:00 108 H 19 105/58 L 99 05/12/21 04:30 105 H 19 113/60 98 05/12/21 04:00 110 H 19 95/62 98 05/12/21 03:30 113 H 20 76/47 L 100 05/12/21 03:00 120 H 20 61/36 L 100 05/12/21 02:30 130 H 24 H 62/44 L 95 - Problem List Review Problem List Initiated/Reviewed/Updated: Yes - My Orders Last 24 Hours: My Active Orders 05/12/21 08:00 Albumin 25% [Flexbumin 25%] 200 ml IV DAILY 05/12/21 14:00 CBC WITH AUTO DIFF [HEME] Routine cefTRIAXone [Rocephin] 1 gm Sodium Chloride 0.9% [Normal Saline] 50 ml IV Q24H 05/12/21 15:00 Azithromycin [Zithromax] 500 mg Sodium Chloride 0.9% [Normal Saline (AdvBag)] 250 ml IV Q24H 05/13/21 05:11 Chest 1V Frontal [CR] AM CBC WITH AUTO DIFF [HEME] AM COMPREHENSIVE METABOLIC PN,CMP [CHEM] AM MAGNESIUM [CHEM] Routine - Plan Plan:: Patient in ICU Day 1 with [place] II score 23 with estimated mortality rate of 40%. Cardiogenic shock/Hypotension/CHF - Maintain pressors and titrate. Cardiac monitoring. BNP 35513 (prior BNP 2 months ago 5462). Pneumonia - Rocephin and Azithromycin daily dosing. F/u CBC today and in the AM for further management. S[place]is [place] [address] - f/u CBC. Fluid resuscitation - monitor pulmonary congestion at the same time. Continue IV antibiotics. Acute renal failure - Gentle hydration and repeat BUN/Cr. F/u labs daily and as needed. Renal diet. Anemia - Consider supplementation. F/u CBC and monitor any further drop for blood loss. COPD - On 3L nasal canula; continue current inhaler and nebulizer treatment. Metastatic Pancreatic Cancer - Palliative care patient. May choose to follow up with Oncology as directed. Hypothyroidism - Stable continue on current medication. DVT prophylaxis - SCD's.
[2021-05-12] MEDS: cefTRIAXone 1 GM in Sodium Chloride 0.9% 50 ML IV SCH (16:12)
[2021-05-12] MEDS ORDERED: hydrOXYzine HCl 25 MG Tab PO PRN (16:18)
[2021-05-12] MEDS: Azithromycin 500 MG in Sodium Chloride 0.9% 250 ML IV SCH (16:54)
[2021-05-12] MEDS: TIMOLOL MALEATE EYELF SCH (20:00)
[2021-05-12] MEDS: Tamsulosin 0.4 MG Cap.ER PO SCH (20:00)
[2021-05-13] MEDS: Metoprolol Tartrate 25 MG Tab PO SCH ×3 (01:03→22:35)
[2021-05-13] MEDS: Furosemide 20 MG/2 ML VIAL IVPUSH PRN ×2 (06:45→21:55)
[2021-05-13] MEDS ORDERED: Amiodarone 200 MG Tab ONE ×2 (07:15→22:20)
[2021-05-13] MEDS: Famotidine 20 MG Tab PO SCH ×2 (07:49→21:30)
[2021-05-13] MEDS: Aspirin 81 MG Tab.Chew PO SCH (07:49)
[2021-05-13] MEDS: Levothyroxine 100 MCG Tab PO SCH (07:50)
[2021-05-13] MEDS: AMIODARONE HCL 400 MG PO SCH ×2 (07:50→22:20)
[2021-05-13] MEDS: Apixaban 5 MG Tab PO SCH ×2 (07:50→21:30)
[2021-05-13] MEDS: Albumin 25% 200 ML IV SCH (08:24)
[2021-05-13] MEDS: Furosemide 40 MG/4 ML VIAL IVPUSH SCH (08:48)
[2021-05-13] MEDS: Norepinephrine 4 MG in Dextrose 5% in Water 246 ML IV SCH ×2 (09:58)
[2021-05-13] MEDS: NS + KCl 20mEq/L 1,000 ML IV SCH ×2 (10:05→21:54)
--- NOTE | 2021-05-13 12:03 | PCM.PN ---
- General Info Date of Service: 05/13/21 Subjective Update: ICU Day #2 ; In 1.25L Output 1770mL Patient was weaned off levophed last night and oxygen titrated. He had a V-tach event and his pacer defibrillated. Thereafter he required a return to levophed. This morning during rounds he had another V-tach event and was defibrillated by his pacer/defib. He remains in good spirits at this time. His condition improved and worsened overnight. He remains critical at this time. Patient remains tachycardic with a fever last night and tylenol administration which improved his fever. - Review of Systems General: Reports: Weakness HEENT: Reports: No Symptoms Pulmonary: Reports: No Symptoms Cardiovascular: Reports: Dyspnea on Exertion, Orthopnea Gastrointestinal: Reports: Decreased Appetite Genitourinary: Reports: No Symptoms Musculoskeletal: Reports: No Symptoms Skin: Reports: Pallor Neurological: Reports: Weakness Psychiatric: Reports: No Symptoms - Patient Data Vitals - Most Recent: Last Vital Signs Temp 37.1 C 05/13/21 11:00 Pulse 102 H 05/13/21 11:00 Resp 17 05/13/21 11:00 BP 98/64 05/13/21 11:00 Pulse Ox 100 05/13/21 11:00 Weight - Most Recent: 63.503 kg I&O - Last 24 Hours: Intake & Output 05/12/21 05/13/21 05/13/21 22:59 06:59 14:59 Intake Total 910 1400 Output Total 5000 1325 450 Balance -4090 75 -450 Lab Results Last 24 Hours: Laboratory Results - last 24 hr 05/12/21 05/12/21 05/12/21 Range/Units 14:00 14:33 15:00 WBC 15.3 H (4.0-11.0) K/uL RBC 3.04 L (4.50-6.50) M/uL Hgb 9.7 L (13.0-18.0) g/dL Hct 30.2 L (40.0-54.0) % MCV 99 H (76-96) fL MCH 31.9 (27.0-32.0) pg MCHC 32.1 (31.0-35.0) g/dL RDW 14.8 (11.0-16.0) % Plt Count 221 (150-400) K/uL MPV 10.5 H (6.0-10.0) fL Neut % (Auto) 90.0 H (45.0-70.0) % Lymph % (Auto) 4.6 L (20.0-40.0) % [place] % (Auto) 5.2 (3.0-10.0) % Eos % (Auto) 0.1 L (1.0-5.0) % Baso % (Auto) 0.1 (0.0-0.5) % Neut # (Auto) 13.78 H (2.00-7.50) K/uL Lymph # (Auto) 0.71 L (1.50-4.00) K/uL [place] # (Auto) 0.79 (0.20-0.80) K/uL Eos # (Auto) 0.01 L (0.04-0.40) K/uL Baso # (Auto) 0.01 L (0.02-0.10) K/uL Sodium 142 (136-145) mmol/L Potassium 3.8 (3.5-5.1) mmol/L Chloride 108 H (98-107) mmol/L Carbon Dioxide 27.0 (21.0-32.0) mmol/L Anion Gap 10.8 (5.0-15.0) mmol/L BUN 17 (8-26) mg/dL Creatinine 1.74 H (0.70-1.30) mg/dL Est Cr Clr Drug Dosing 26.93 mL/min Estimated GFR (MDRD) 38 L (>60) MLS/MIN BUN/Creatinine Ratio 9.8 (6-25) Glucose 136 H D (74-100) mg/dL Lactic Acid (0.4-2.0) mmol/L Calcium 8.0 L (8.5-10.1) mg/dL Magnesium 1.9 (1.8-2.4) mg/dL Total Bilirubin 1.0 (0.0-1.0) mg/dL AST 19 (15-37) U/L ALT 21 (12-78) U/L Alkaline Phosphatase 61 (46-116) U/L Total Protein 6.7 (6.4-8.2) g/dL Albumin 2.6 L (3.4-5.0) g/dL Globulin 4.1 (2.2-4.2) g/dL Albumin/Globulin Ratio 0.6 L (0.8-2.0) TSH, Ultra Sensitive 1.405 (0.358-3.740) uIU/mL Urine Color Yellow Urine Appearance Slightly cloudy (CLEAR) Urine pH 7.0 (5.0-8.0) Ur Specific [place] 1.020 (1.003-1.030) Urine Protein Negative (NEGATIVE) mg/dL Urine Glucose (UA) Negative (NEGATIVE) mg/dL Urine Ketones Negative (NEGATIVE) mg/dL Urine Occult Blood Moderate H (NEGATIVE) Urine Nitrite Negative (NEGATIVE) Urine Bilirubin Negative (NEGATIVE) Urine Urobilinogen 0.2 (0.2-1.0) E.U./dL Ur Leukocyte Esterase Small H (NEGATIVE) Urine RBC 40-50 H /HPF Urine WBC 5-10 H /HPF Urine WBC Clumps Few /HPF Ur Squamous Epith Cells Moderate /HPF Urine Bacteria Few /HPF 05/13/21 05/13/21 05/13/21 Range/Units 07:15 07:15 07:15 WBC 14.2 H (4.0-11.0) K/uL RBC 2.83 L (4.50-6.50) M/uL Hgb 9.0 L (13.0-18.0) g/dL Hct 27.6 L (40.0-54.0) % MCV 98 H (76-96) fL MCH 31.8 (27.0-32.0) pg MCHC 32.6 (31.0-35.0) g/dL RDW 14.6 (11.0-16.0) % Plt Count 195 (150-400) K/uL MPV 10.9 H (6.0-10.0) fL Neut % (Auto) 91.0 H (45.0-70.0) % Lymph % (Auto) 3.4 L (20.0-40.0) % [place] % (Auto) 5.6 (3.0-10.0) % Eos % (Auto) 0.0 L (1.0-5.0) % Baso % (Auto) 0.0 (0.0-0.5) % Neut # (Auto) 12.91 H (2.00-7.50) K/uL Lymph # (Auto) 0.48 L (1.50-4.00) K/uL [place] # (Auto) 0.80 (0.20-0.80) K/uL Eos # (Auto) 0.00 L (0.04-0.40) K/uL Baso # (Auto) 0.00 L (0.02-0.10) K/uL Sodium 140 (136-145) mmol/L Potassium 2.7 L* D (3.5-5.1) mmol/L Chloride 107 (98-107) mmol/L Carbon Dioxide 22.5 (21.0-32.0) mmol/L Anion Gap 13.2 (5.0-15.0) mmol/L BUN 14 (8-26) mg/dL Creatinine 1.40 H (0.70-1.30) mg/dL Est Cr Clr Drug Dosing 33.48 mL/min Estimated GFR (MDRD) 48 L (>60) MLS/MIN BUN/Creatinine Ratio 10.0 (6-25) Glucose 95 D (74-100) mg/dL Lactic Acid 1.0 (0.4-2.0) mmol/L Calcium 7.6 L (8.5-10.1) mg/dL Magnesium 1.5 L (1.8-2.4) mg/dL Total Bilirubin 1.0 (0.0-1.0) mg/dL AST 13 L (15-37) U/L ALT 14 (12-78) U/L Alkaline Phosphatase 49 (46-116) U/L Total Protein 5.7 L (6.4-8.2) g/dL Albumin 2.3 L (3.4-5.0) g/dL Globulin 3.4 (2.2-4.2) g/dL Albumin/Globulin Ratio 0.7 L (0.8-2.0) TSH, Ultra Sensitive (0.358-3.740) uIU/mL Urine Color Urine Appearance (CLEAR) Urine pH (5.0-8.0) Ur Specific [place] (1.003-1.030) Urine Protein (NEGATIVE) mg/dL Urine Glucose (UA) (NEGATIVE) mg/dL Urine Ketones (NEGATIVE) mg/dL Urine Occult Blood (NEGATIVE) Urine Nitrite (NEGATIVE) Urine Bilirubin (NEGATIVE) Urine Urobilinogen (0.2-1.0) E.U./dL Ur Leukocyte Esterase (NEGATIVE) Urine RBC /HPF Urine WBC /HPF Urine WBC Clumps /HPF Ur Squamous Epith Cells /HPF Urine Bacteria /HPF Jimmy Results Last 24 Hours: Microbiology 05/12/21 02:20 Aerobic Blood Culture - Preliminary Blood NO GROWTH AFTER 1 DAY Anaerobic Blood Culture - Preliminary NO GROWTH AFTER 1 DAY Med Orders - Current: Current Medications Acetaminophen (Acetaminophen 650 Mg Tab.Er) 650 mg PO Q4H PRN PRN Reason: Pain (severe 7-10) Last Admin: 05/13/21 06:15 Dose: 650 mg Documented by: Apixaban (Apixaban 5 Mg Tab) 5 mg PO BID [facility] Last Admin: 05/13/21 07:50 Dose: 5 mg Documented by: Aspirin (Aspirin 81 Mg Tab.Chew) 81 mg PO DAILY [facility] Last Admin: 05/13/21 07:49 Dose: 81 mg Documented by: Bumetanide (Bumetanide 1 Mg Tab) 1 mg PO ASDIRECTED [facility] Famotidine (Famotidine 20 Mg Tab) 20 mg PO BID [facility] Last Admin: 05/13/21 07:49 Dose: 20 mg Documented by: Furosemide (Furosemide 20 Mg/2 Ml Vial) 20 mg IVPUSH NOW PRN PRN Reason: Dyspnea Last Admin: 05/13/21 06:45 Dose: 20 mg Documented by: Furosemide (Furosemide 40 Mg/4 Ml Vial) 40 mg IVPUSH DAILY [facility] Last Admin: 05/13/21 08:48 Dose: 40 mg Documented by: Hydroxyzine HCl (Hydroxyzine Hcl 25 Mg Tab) 25 mg PO QID PRN PRN Reason: Itching Promethazine HCl 6.25 mg/ (Sodium Chloride) 50.25 mls @ 200 mls/hr IV Q6H PRN PRN Reason: Nausea/Vomiting Ceftriaxone Sodium 1 gm/ (Sodium Chloride) 50 mls @ 100 mls/hr IV Q24H [facility] Last Admin: 05/12/21 16:12 Dose: 100 mls/hr Documented by: Azithromycin 500 mg/ Sodium (Chloride) 250 mls @ 250 mls/hr IV Q24H [facility] Last Admin: 05/12/21 16:54 Dose: 250 mls/hr Documented by: Albumin Human (Flexbumin 25%) 200 mls @ 50 mls/hr IV DAILY [facility] Last Admin: 05/13/21 08:24 Dose: 50 mls/hr Documented by: Potassium Chloride/Sodium Chloride (Normal Saline With 20 Meq Kcl) 1,000 mls @ 100 mls/hr IV ASDIRECTED [facility] Norepinephrine Bitartrate 4 mg (/ Dextrose/Water) 250 mls @ 7.5 mls/hr IV TITRATE [facility]; Protocol Last Admin: 05/13/21 09:58 Dose: 3 mcg/min, 11.25 mls/hr Documented by: Levothyroxine Sodium (Levothyroxine 100 Mcg Tab) 100 mcg PO ACBREAKFAST [facility] Last Admin: 05/13/21 07:50 Dose: 100 mcg Documented by: Metoprolol Tartrate (Metoprolol Tartrate 25 Mg Tab) 25 mg PO BID [facility] Last Admin: 05/13/21 07:50 Dose: Not Given Documented by: Morphine Sulfate (Morphine 2 Mg/Ml Syringe) 2 mg IVPUSH Q1H PRN PRN Reason: Pain Last Admin: 05/12/21 04:35 Dose: 2 mg Documented by: Nitroglycerin (Nitroglycerin 0.4 Mg Tab.Sl) 0.4 mg SL Q5M PRN PRN Reason: Chest Pain Non-Formulary Medication (Amiodarone Hcl [Amiodarone Hcl]) 400 mg PO BID [facility] Last Admin: 05/13/21 07:50 Dose: 400 mg Documented by: Non-Formulary Medication (Budesonide/Formoterol [Symbicort 160-4.5 Mcg]) 1 puff INH BID [facility] Last Admin: 05/13/21 09:58 Dose: Not Given Documented by: Non-Formulary Medication (Timolol Maleate [Timoptic 0.25% Oph Soln]) 1 drop EYELF BEDTIME [facility] Last Admin: 05/12/21 20:00 Dose: 1 drop Documented by: Ondansetron HCl (Ondansetron 4 Mg Tab.Dis) 4 mg PO Q4HR PRN PRN Reason: Nausea Tamsulosin HCl (Tamsulosin 0.4 Mg Cap.Er) 0.4 mg PO BEDTIME [facility] Last Admin: 05/12/21 20:00 Dose: 0.4 mg Documented by: Discontinued Medications Albuterol/Ipratropium (Albuterol/Ipratropium 3.0-0.5 Mg/3 Ml Neb Soln) 3 ml NEB ONETIME ONE Stop: 05/12/21 01:34 Last Admin: 05/12/21 01:34 Dose: 3 ml Documented by: Amiodarone HCl (Amiodarone 200 Mg Tab) Confirm Administered Dose 400 mg .ROUTE .STK-MED ONE Stop: 05/12/21 08:38 Last Admin: 05/12/21 08:44 Dose: Not Given Documented by: Amiodarone HCl (Amiodarone 200 Mg Tab) Confirm Administered Dose 400 mg .ROUTE .STK-MED ONE Stop: 05/13/21 07:16 Last Admin: 05/13/21 07:42 Dose: Not Given Documented by: Ceftriaxone Sodium (Ceftriaxone 1 Gm Vial) Confirm Administered Dose 1 gm .ROUTE .STK-MED ONE Stop: 05/12/21 02:52 Last Admin: 05/12/21 06:07 Dose: Not Given Documented by: Furosemide (Furosemide 40 Mg/4 Ml Vial) 40 mg IVPUSH NOW ONE Stop: 05/12/21 05:02 Last Admin: 05/12/21 09:30 Dose: 40 mg Documented by: Furosemide (Furosemide 40 Mg/4 Ml Vial) Confirm Administered Dose 40 mg .ROUTE .STK-MED ONE Stop: 05/12/21 07:51 Last Admin: 05/12/21 08:25 Dose: Not Given Documented by: Hydroxyzine HCl (Hydroxyzine Hcl 25 Mg Tab) 25 mg PO QID [facility] Last Admin: 05/12/21 17:40 Dose: Not Given Documented by: Sodium Chloride (Normal Saline) 1,000 mls @ 500 mls/hr IV .BOLUS ONE Stop: 05/12/21 03:51 Last Admin: 05/12/21 05:30 Dose: 500 mls/hr Documented by: Ceftriaxone Sodium 1 gm/ (Sodium Chloride) 50 mls @ 100 mls/hr IV ONETIME ONE Stop: 05/12/21 02:57 Last Admin: 05/12/21 02:46 Dose: 100 mls/hr Documented by: Azithromycin 500 mg/ Sodium (Chloride) 250 mls @ 250 mls/hr IV ONETIME ONE Stop: 05/12/21 03:27 Last Admin: 05/12/21 03:25 Dose: 250 mls/hr Documented by: Norepinephrine Bitartrate 4 mg (/ Dextrose/Water) 250 mls @ 7.5 mls/hr IV TITRATE [facility]; Protocol Last Titration: 05/13/21 03:00 Dose: 1.5 mcg/min, 5.625 mls/hr Documented by: Albumin Human (Flexbumin 25%) 200 mls @ 100 mls/hr IV Q12HR ONE Stop: 05/12/21 11:01 Last Admin: 05/12/21 14:16 Dose: Not Given Documented by: Sodium Chloride (Normal Saline) 1,000 mls @ 100 mls/hr IV ASDIRECTED [facility] Last Admin: 05/12/21 18:00 Dose: 100 mls/hr Documented by: Sodium Chloride (Normal Saline) 1,000 mls @ 250 mls/hr IV ASDIRECTED [facility] Last Admin: 05/12/21 09:15 Dose: 250 mls/hr Documented by: Morphine Sulfate (Morphine 2 Mg/Ml Syringe) Confirm Administered Dose 2 mg .ROUTE .STK-MED ONE Stop: 05/12/21 04:35 Last Admin: 05/12/21 06:08 Dose: Not Given Documented by: - Exam Quality Assessment: Supplemental Oxygen Urinary Catheter Total Time: 1Days 5Hours General: Alert, Oriented, Cooperative HEENT: Pupils Equal, Pupils Reactive, EOMI Neck: Supple Lungs: Decreased Breath Sounds, Crackles (RLL) Cardiovascular: Tachycardia, Other (V-tach, PVCs) GI/Abdominal Exam: Soft, Non-Tender, Abnormal Bowel Sounds (decreased) Back Exam: Normal Inspection Extremities: Normal Inspection Peripheral Pulses: 2+: Dorsalis Pedis (L), Dorsalis Pedis (R) Skin: Dry, Intact, Cool Neurological: No New Focal Deficit Psy/Mental Status: Alert, Normal Affect, Normal Mood - Patient Data Lab Results Last 24 hrs: Laboratory Results - last 24 hr 05/12/21 05/12/21 05/12/21 Range/Units 14:00 14:33 15:00 WBC 15.3 H (4.0-11.0) K/uL RBC 3.04 L (4.50-6.50) M/uL Hgb 9.7 L (13.0-18.0) g/dL Hct 30.2 L (40.0-54.0) % MCV 99 H (76-96) fL MCH 31.9 (27.0-32.0) pg MCHC 32.1 (31.0-35.0) g/dL RDW 14.8 (11.0-16.0) % Plt Count 221 (150-400) K/uL MPV 10.5 H (6.0-10.0) fL Neut % (Auto) 90.0 H (45.0-70.0) % Lymph % (Auto) 4.6 L (20.0-40.0) % [place] % (Auto) 5.2 (3.0-10.0) % Eos % (Auto) 0.1 L (1.0-5.0) % Baso % (Auto) 0.1 (0.0-0.5) % Neut # (Auto) 13.78 H (2.00-7.50) K/uL Lymph # (Auto) 0.71 L (1.50-4.00) K/uL [place] # (Auto) 0.79 (0.20-0.80) K/uL Eos # (Auto) 0.01 L (0.04-0.40) K/uL Baso # (Auto) 0.01 L (0.02-0.10) K/uL Sodium 142 (136-145) mmol/L Potassium 3.8 (3.5-5.1) mmol/L Chloride 108 H (98-107) mmol/L Carbon Dioxide 27.0 (21.0-32.0) mmol/L Anion Gap 10.8 (5.0-15.0) mmol/L BUN 17 (8-26) mg/dL Creatinine 1.74 H (0.70-1.30) mg/dL Est Cr Clr Drug Dosing 26.93 mL/min Estimated GFR (MDRD) 38 L (>60) MLS/MIN BUN/Creatinine Ratio 9.8 (6-25) Glucose 136 H D (74-100) mg/dL Lactic Acid (0.4-2.0) mmol/L Calcium 8.0 L (8.5-10.1) mg/dL Magnesium 1.9 (1.8-2.4) mg/dL Total Bilirubin 1.0 (0.0-1.0) mg/dL AST 19 (15-37) U/L ALT 21 (12-78) U/L Alkaline Phosphatase 61 (46-116) U/L Total Protein 6.7 (6.4-8.2) g/dL Albumin 2.6 L (3.4-5.0) g/dL Globulin 4.1 (2.2-4.2) g/dL Albumin/Globulin Ratio 0.6 L (0.8-2.0) TSH, Ultra Sensitive 1.405 (0.358-3.740) uIU/mL Urine Color Yellow Urine Appearance Slightly cloudy (CLEAR) Urine pH 7.0 (5.0-8.0) Ur Specific [place] 1.020 (1.003-1.030) Urine Protein Negative (NEGATIVE) mg/dL Urine Glucose (UA) Negative (NEGATIVE) mg/dL Urine Ketones Negative (NEGATIVE) mg/dL Urine Occult Blood Moderate H (NEGATIVE) Urine Nitrite Negative (NEGATIVE) Urine Bilirubin Negative (NEGATIVE) Urine Urobilinogen 0.2 (0.2-1.0) E.U./dL Ur Leukocyte Esterase Small H (NEGATIVE) Urine RBC 40-50 H /HPF Urine WBC 5-10 H /HPF Urine WBC Clumps Few /HPF Ur Squamous Epith Cells Moderate /HPF Urine Bacteria Few /HPF 05/13/21 05/13/21 05/13/21 Range/Units 07:15 07:15 07:15 WBC 14.2 H (4.0-11.0) K/uL RBC 2.83 L (4.50-6.50) M/uL Hgb 9.0 L (13.0-18.0) g/dL Hct 27.6 L (40.0-54.0) % MCV 98 H (76-96) fL MCH 31.8 (27.0-32.0) pg MCHC 32.6 (31.0-35.0) g/dL RDW 14.6 (11.0-16.0) % Plt Count 195 (150-400) K/uL MPV 10.9 H (6.0-10.0) fL Neut % (Auto) 91.0 H (45.0-70.0) % Lymph % (Auto) 3.4 L (20.0-40.0) % [place] % (Auto) 5.6 (3.0-10.0) % Eos % (Auto) 0.0 L (1.0-5.0) % Baso % (Auto) 0.0 (0.0-0.5) % Neut # (Auto) 12.91 H (2.00-7.50) K/uL Lymph # (Auto) 0.48 L (1.50-4.00) K/uL [place] # (Auto) 0.80 (0.20-0.80) K/uL Eos # (Auto) 0.00 L (0.04-0.40) K/uL Baso # (Auto) 0.00 L (0.02-0.10) K/uL Sodium 140 (136-145) mmol/L Potassium 2.7 L* D (3.5-5.1) mmol/L Chloride 107 (98-107) mmol/L Carbon Dioxide 22.5 (21.0-32.0) mmol/L Anion Gap 13.2 (5.0-15.0) mmol/L BUN 14 (8-26) mg/dL Creatinine 1.40 H (0.70-1.30) mg/dL Est Cr Clr Drug Dosing 33.48 mL/min Estimated GFR (MDRD) 48 L (>60) MLS/MIN BUN/Creatinine Ratio 10.0 (6-25) Glucose 95 D (74-100) mg/dL Lactic Acid 1.0 (0.4-2.0) mmol/L Calcium 7.6 L (8.5-10.1) mg/dL Magnesium 1.5 L (1.8-2.4) mg/dL Total Bilirubin 1.0 (0.0-1.0) mg/dL AST 13 L (15-37) U/L ALT 14 (12-78) U/L Alkaline Phosphatase 49 (46-116) U/L Total Protein 5.7 L (6.4-8.2) g/dL Albumin 2.3 L (3.4-5.0) g/dL Globulin 3.4 (2.2-4.2) g/dL Albumin/Globulin Ratio 0.7 L (0.8-2.0) TSH, Ultra Sensitive (0.358-3.740) uIU/mL Urine Color Urine Appearance (CLEAR) Urine pH (5.0-8.0) Ur Specific [place] (1.003-1.030) Urine Protein (NEGATIVE) mg/dL Urine Glucose (UA) (NEGATIVE) mg/dL Urine Ketones (NEGATIVE) mg/dL Urine Occult Blood (NEGATIVE) Urine Nitrite (NEGATIVE) Urine Bilirubin (NEGATIVE) Urine Urobilinogen (0.2-1.0) E.U./dL Ur Leukocyte Esterase (NEGATIVE) Urine RBC /HPF Urine WBC /HPF Urine WBC Clumps /HPF Ur Squamous Epith Cells /HPF Urine Bacteria /HPF Result Diagrams: 05/13/21 07:15 05/13/21 07:15 Jimmy Results Last 24 hrs: Microbiology 05/12/21 02:20 Aerobic Blood Culture - Preliminary Blood NO GROWTH AFTER 1 DAY Anaerobic Blood Culture - Preliminary NO GROWTH AFTER 1 DAY Sepsis Event Note - Evaluation Sepsis Screening Result: Possible Sepsis Risk - Focused Exam Vital Signs: Vital Signs Temp Temp Pulse Resp BP Pulse Ox Pulse Ox 05/13/21 11:00 37.1 C 102 H 17 98/64 100 05/13/21 07:48 37.3 C 38.4 C H 143 H 18 94/55 L 98 05/13/21 04:00 39.1 C H 18 98/67 97 05/13/21 01:43 100 05/13/21 00:00 37.1 C 112 H 122/75 100 - Problem List Review Problem List Initiated/Reviewed/Updated: Yes - My Orders Last 24 Hours: My Active Orders 05/12/21 14:00 [email or web address] [Rocephin] 1 gm Sodium Chloride 0.9% [Normal Saline] 50 ml IV Q24H 05/12/21 15:00 Azithromycin [Zithromax] 500 mg Sodium Chloride 0.9% [Normal Saline (AdvBag)] 250 ml IV Q24H 05/12/21 18:58 Furosemide [Lasix] 20 mg IVPUSH NOW PRN 05/13/21 05:11 Chest 1V Frontal [CR] AM 05/13/21 08:00 Furosemide [Lasix] 40 mg IVPUSH DAILY 05/13/21 08:30 NS + KCl 20mEq/L [Normal Saline with 20 mEq KCl] 1,000 ml IV ASDIRECTED 05/14/21 05:11 LACTIC ACID SEPSIS W/ REFLEX [LACTATE SEPSIS W/ REFLEX] [CHEM] DAILY 05/15/21 05:11 LACTIC ACID SEPSIS W/ REFLEX [LACTATE SEPSIS W/ REFLEX] [CHEM] DAILY - Plan Plan:: Patient in ICU Day 1 with KARLUK II score 23 with estimated mortality rate of 40%. Cardiogenic shock/Hypotension/CHF - Maintain pressors and titrate. Cardiac monitoring. BNP 10631 (prior BNP 2 months ago 5462). Pneumonia - Rocephin and Azithromycin daily dosing. F/u CBC today and in the AM for further management. Sepsis [place] [address] - f/u CBC. Fluid resuscitation - monitor pulmonary congestion at the same time. Continue IV antibiotics. Acute renal failure - Gentle hydration and repeat BUN/Cr. F/u labs daily and as needed. Renal diet. Anemia - Consider supplementation. F/u CBC and monitor any further drop for blood loss. COPD - On 3L nasal canula; continue current inhaler and nebulizer treatment. Metastatic Pancreatic Cancer - Palliative care patient. May choose to follow up with Oncology as directed. Hypothyroidism - Stable continue on current medication. DVT prophylaxis - SCD's. 05/13/23 ICU Day #2 Cardiogenic shock/Hypotension/CHF - Maintain pressors and titrate. Cardiac monitoring. BNP 53438 (prior BNP 2 months ago 5462). Patient was weaned off last night but had a V-tach and defibrillation event and required to return to pressors. Consideration for central line discussed with family by Harvey and plan for family meeting for millersai as decision by Orestes to stop his defibrillator and pacer. Place on comfort/palliative care. Pneumonia - Rocephin and Azithromycin daily dosing. F/u CBC today and in the AM for further management. Likely discontinue when placed into comfort care. Sepsis [place] [address] - f/u CBC. Fluid resuscitation - monitor pulmonary congestion at the same time. Monitor symptoms and may d/c further labs. Acute renal failure - F/u as directed at this time. Anemia - F/u as directed. COPD - On 3L nasal canula; continue current inhaler and nebulizer treatment for comfort. Metastatic Pancreatic Cancer - Palliative care patient. May choose to follow up with Oncology as directed. Hypothyroidism - Stable. DVT prophylaxis - SCD's.
--- NOTE | 2021-05-13 15:33 | CR ---
Date of Service: 05/13/21 Clinical Data: pneumonia AP CHEST: Comparison is made to a prior exam dated 05/12/21. The patient has taken a poor inspiration. The patient is status post median sternotomy. The heart remains enlarged, unchanged. The cardiac pacer and pacer wires remain unchanged in position. Both lung bases appear clearer than on the prior exam. The small bilateral pleural effusions appear to be decreased from the prior study. The exam is otherwise unchanged. No new abnormalities. [id number] [facility]
[2021-05-13] MEDS: Azithromycin 500 MG in Sodium Chloride 0.9% 250 ML IV SCH (16:02)
[2021-05-13] MEDS: cefTRIAXone 1 GM in Sodium Chloride 0.9% 50 ML IV SCH (16:02)
[2021-05-13] MEDS: Tamsulosin 0.4 MG Cap.ER PO SCH (21:30)
[2021-05-13] MEDS ORDERED: Furosemide 20 MG/2 ML VIAL IVPUSH ONE (21:43)
[2021-05-13] MEDS ORDERED: Furosemide 20 MG/2 ML VIAL ONE (21:48)
[2021-05-13] MEDS: TIMOLOL MALEATE EYELF SCH (22:14)
[2021-05-14] MEDS: Morphine 2 MG/ML SYRINGE IVPUSH PRN ×3 (03:48→17:36)
[2021-05-14] MEDS ORDERED: Morphine 2 MG/ML SYRINGE ONE (03:55)
[2021-05-14] MEDS: Levothyroxine 100 MCG Tab PO SCH (07:51)
[2021-05-14] MEDS: Furosemide 40 MG/4 ML VIAL IVPUSH SCH (07:51)
[2021-05-14] MEDS: Famotidine 20 MG Tab PO SCH ×2 (07:51→20:43)
[2021-05-14] MEDS: Aspirin 81 MG Tab.Chew PO SCH (07:52)
[2021-05-14] MEDS: Apixaban 5 MG Tab PO SCH ×2 (07:52→20:42)
[2021-05-14] MEDS: Metoprolol Tartrate 25 MG Tab PO SCH ×2 (07:52→20:37)
[2021-05-14] MEDS: Albumin 25% 200 ML IV SCH (07:58)
[2021-05-14] MEDS: AMIODARONE HCL 400 MG PO SCH ×2 (08:00→20:43)
[2021-05-14] MEDS ORDERED: Amiodarone 200 MG Tab ONE ×2 (08:01→20:42)
[2021-05-14] MEDS: Formoterol/Mometasone 200-5 MCG 8.8 GM Inhaler IH SCH ×2 (08:21→20:43)
[2021-05-14] MEDS ORDERED: cefTRIAXone 1 GM Vial ONE (09:50)
[2021-05-14] MEDS: cefTRIAXone 1 GM in Sodium Chloride 0.9% 50 ML IV SCH ×2 (09:51→14:22)
[2021-05-14] MEDS: Azithromycin 500 MG in Sodium Chloride 0.9% 250 ML IV SCH ×2 (09:53→15:09)
[2021-05-14] MEDS: Norepinephrine 4 MG in Dextrose 5% in Water 246 ML IV SCH ×2 (14:24)
[2021-05-14] MEDS: NS + KCl 20mEq/L 1,000 ML IV SCH (16:09)
[2021-05-14] MEDS: Ondansetron 4 MG Tab.DIS PO PRN (17:36)
--- NOTE | 2021-05-14 17:59 | PCM.PN ---
- General Info Date of Service: 05/14/21 Subjective Update: Day#3 ICU Patient shows improvement in symptoms. He denies any issues. Last night per patient defibrillator was discontinued with magnet after discussion of risks including up to . Patient did not want to be shocked any more. He denies any current concerns. Family present and a care conference was setup for discussion on plan of care. Discussed end of life and comfort cares versus continued care and management including transfer. Patient does not want heroic measures but does request continued medication management including levophed at this time. Patient is alert today and oriented and understands the risks and benefits of his plan of care. Functional Status: Reports: Pain Controlled - Review of Systems General: Reports: Weakness HEENT: Reports: No Symptoms Pulmonary: Reports: Other (chest congestion) Cardiovascular: Reports: Dyspnea on Exertion, Other (prequent PVC and occasional V-tach). Denies: Chest Pain, Lightheadedness Gastrointestinal: Reports: No Symptoms Genitourinary: Reports: No Symptoms Musculoskeletal: Reports: No Symptoms Skin: Reports: No Symptoms Neurological: Reports: Weakness - Patient Data Vitals - Most Recent: Last Vital Signs Temp 37.2 C 05/14/21 06:40 Pulse 93 05/14/21 15:36 Resp 16 05/14/21 09:35 BP 78/58 L 05/14/21 15:36 Pulse Ox 100 05/14/21 15:36 Weight - Most Recent: 63.503 kg I&O - Last 24 Hours: Intake & Output 05/14/21 05/14/21 05/14/21 06:59 14:59 22:59 Intake Total 2488 Output Total 2775 Balance -287 Lab Results Last 24 Hours: Laboratory Results - last 24 hr 05/14/21 05/14/21 05/14/21 Range/Units 11:00 11:00 11:00 WBC 12.4 H (4.0-11.0) K/uL RBC 2.93 L (4.50-6.50) M/uL Hgb 9.4 L (13.0-18.0) g/dL Hct 28.3 L (40.0-54.0) % MCV 97 H (76-96) fL MCH 32.1 H (27.0-32.0) pg MCHC 33.2 (31.0-35.0) g/dL RDW 14.4 (11.0-16.0) % Plt Count 204 (150-400) K/uL MPV 10.9 H (6.0-10.0) fL Neut % (Auto) 86.0 H (45.0-70.0) % Lymph % (Auto) 4.6 L (20.0-40.0) % Harding % (Auto) 9.1 (3.0-10.0) % Eos % (Auto) 0.2 L (1.0-5.0) % Baso % (Auto) 0.1 (0.0-0.5) % Neut # (Auto) 10.64 H (2.00-7.50) K/uL Lymph # (Auto) 0.57 L (1.50-4.00) K/uL Harding # (Auto) 1.12 H (0.20-0.80) K/uL Eos # (Auto) 0.03 L (0.04-0.40) K/uL Baso # (Auto) 0.01 L (0.02-0.10) K/uL Sodium 140 (136-145) mmol/L Potassium 2.5 L* (3.5-5.1) mmol/L Chloride 104 (98-107) mmol/L Carbon Dioxide 26.4 (21.0-32.0) mmol/L Anion Gap 12.1 (5.0-15.0) mmol/L BUN 12 (8-26) mg/dL Creatinine 1.17 (0.70-1.30) mg/dL Est Cr Clr Drug Dosing 40.06 mL/min Estimated GFR (MDRD) 60 (>60) MLS/MIN BUN/Creatinine Ratio 10.3 (6-25) Glucose 112 H (74-100) mg/dL Lactic Acid 1.7 (0.4-2.0) mmol/L Calcium 7.1 L (8.5-10.1) mg/dL Total Bilirubin 0.8 (0.0-1.0) mg/dL AST 18 (15-37) U/L ALT 18 (12-78) U/L Alkaline Phosphatase 44 L (46-116) U/L Total Protein 5.6 L (6.4-8.2) g/dL Albumin 2.0 L (3.4-5.0) g/dL Globulin 3.6 (2.2-4.2) g/dL Albumin/Globulin Ratio 0.6 L (0.8-2.0) Jimmy Results Last 24 Hours: Microbiology 05/12/21 02:20 Aerobic Blood Culture - Preliminary Blood NO GROWTH AFTER 2 DAYS Anaerobic Blood Culture - Preliminary NO GROWTH AFTER 2 DAYS Med Orders - Current: Current Medications Acetaminophen (Acetaminophen 650 Mg Tab.Er) 650 mg PO Q4H PRN PRN Reason: Pain (severe 7-10) Last Admin: 05/13/21 06:15 Dose: 650 mg Documented by: Apixaban (Apixaban 5 Mg Tab) 5 mg PO BID [facility] Last Admin: 05/14/21 07:52 Dose: 5 mg Documented by: Aspirin (Aspirin 81 Mg Tab.Chew) 81 mg PO DAILY [facility] Last Admin: 05/14/21 07:52 Dose: 81 mg Documented by: Bumetanide (Bumetanide 1 Mg Tab) 1 mg PO ASDIRECTED [facility] Famotidine (Famotidine 20 Mg Tab) 20 mg PO BID [facility] Last Admin: 05/14/21 07:51 Dose: 20 mg Documented by: Furosemide (Furosemide 20 Mg/2 Ml Vial) 20 mg IVPUSH NOW PRN PRN Reason: Dyspnea Last Admin: 05/13/21 21:55 Dose: 20 mg Documented by: Furosemide (Furosemide 40 Mg/4 Ml Vial) 40 mg IVPUSH DAILY [facility] Last Admin: 05/14/21 07:51 Dose: 40 mg Documented by: Hydroxyzine HCl (Hydroxyzine Hcl 25 Mg Tab) 25 mg PO QID PRN PRN Reason: Itching Promethazine HCl 6.25 mg/ (Sodium Chloride) 50.25 mls @ 200 mls/hr IV Q6H PRN PRN Reason: Nausea/Vomiting Ceftriaxone Sodium 1 gm/ (Sodium Chloride) 50 mls @ 100 mls/hr IV Q24H [facility] Last Admin: 05/14/21 14:22 Dose: 100 mls/hr Documented by: Azithromycin 500 mg/ Sodium (Chloride) 250 mls @ 250 mls/hr IV Q24H [facility] Last Admin: 05/14/21 15:09 Dose: 250 mls/hr Documented by: Albumin Human (Flexbumin 25%) 200 mls @ 50 mls/hr IV DAILY [facility] Last Admin: 05/14/21 07:58 Dose: 50 mls/hr Documented by: Potassium Chloride/Sodium Chloride (Normal Saline With 20 Meq Kcl) 1,000 mls @ 100 mls/hr IV ASDIRECTED [facility] Last Admin: 05/14/21 16:09 Dose: 75 mls/hr Documented by: Norepinephrine Bitartrate 4 mg (/ Dextrose/Water) 250 mls @ 7.5 mls/hr IV TITRATE [facility]; Protocol Last Admin: 05/14/21 14:24 Dose: 3 mcg/min, 11.25 mls/hr Documented by: Potassium Chloride 40 meq/ (Dextrose/Lactated Ringer's) 520 mls @ 150 mls/hr IV ASDIRECTED [facility] Levothyroxine Sodium (Levothyroxine 100 Mcg Tab) 100 mcg PO ACBREAKFAST [facility] Last Admin: 05/14/21 07:51 Dose: 100 mcg Documented by: Metoprolol Tartrate (Metoprolol Tartrate 25 Mg Tab) 25 mg PO BID [facility] Last Admin: 05/14/21 07:52 Dose: 25 mg Documented by: Mometasone Furoate/Formoterol Fumar (Formoterol/Mometasone 200-5 Mcg 8.8 Gm Inhaler) 1 puff IH BID [facility] Last Admin: 05/14/21 08:21 Dose: 1 puff Documented by: Morphine Sulfate (Morphine 2 Mg/Ml Syringe) 2 mg IVPUSH Q1H PRN PRN Reason: Pain Last Admin: 05/14/21 17:36 Dose: 2 mg Documented by: Nitroglycerin (Nitroglycerin 0.4 Mg Tab.Sl) 0.4 mg SL Q5M PRN PRN Reason: Chest Pain Non-Formulary Medication (Amiodarone Hcl [Amiodarone Hcl]) 400 mg PO BID [facility] Last Admin: 05/14/21 08:00 Dose: 400 mg Documented by: Non-Formulary Medication (Timolol Maleate [Timoptic 0.25% [facility]]) 1 drop EYELF BEDTIME [facility] Last Admin: 05/13/21 22:14 Dose: 1 drop Documented by: Ondansetron HCl (Ondansetron 4 Mg Tab.Dis) 4 mg PO Q4HR PRN PRN Reason: Nausea Last Admin: 05/14/21 17:36 Dose: 4 mg Documented by: Tamsulosin HCl (Tamsulosin 0.4 Mg Cap.Er) 0.4 mg PO BEDTIME BITA Last Admin: 05/13/21 21:30 Dose: 0.4 mg Documented by: Discontinued Medications Albuterol/Ipratropium (Albuterol/Ipratropium 3.0-0.5 Mg/3 Ml Neb Soln) 3 ml NEB ONETIME ONE Stop: 05/12/21 01:34 Last Admin: 05/12/21 01:34 Dose: 3 ml Documented by: Amiodarone HCl (Amiodarone 200 Mg Tab) Confirm Administered Dose 400 mg .ROUTE .STK-MED ONE Stop: 05/12/21 08:38 Last Admin: 05/12/21 08:44 Dose: Not Given Documented by: Amiodarone HCl (Amiodarone 200 Mg Tab) Confirm Administered Dose 400 mg .ROUTE .STK-MED ONE Stop: 05/13/21 07:16 Last Admin: 05/13/21 07:42 Dose: Not Given Documented by: Amiodarone HCl (Amiodarone 200 Mg Tab) Confirm Administered Dose 400 mg .ROUTE .STK-MED ONE Stop: 05/13/21 22:21 Last Admin: 05/14/21 01:42 Dose: Not Given Documented by: Amiodarone HCl (Amiodarone 200 Mg Tab) Confirm Administered Dose 400 mg .ROUTE .STK-MED ONE Stop: 05/14/21 08:02 Last Admin: 05/14/21 08:04 Dose: Not Given Documented by: Ceftriaxone Sodium (Ceftriaxone 1 Gm Vial) Confirm Administered Dose 1 gm .ROUTE .STK-MED ONE Stop: 05/12/21 02:52 Last Admin: 05/12/21 06:07 Dose: Not Given Documented by: Ceftriaxone Sodium (Ceftriaxone 1 Gm Vial) Confirm Administered Dose 1 gm .ROUTE .STK-MED ONE Stop: 05/14/21 09:51 Last Admin: 05/14/21 09:50 Dose: Not Given Documented by: Furosemide (Furosemide 40 Mg/4 Ml Vial) 40 mg IVPUSH NOW ONE Stop: 05/12/21 05:02 Last Admin: 05/12/21 09:30 Dose: 40 mg Documented by: Furosemide (Furosemide 40 Mg/4 Ml Vial) Confirm Administered Dose 40 mg .ROUTE .STK-MED ONE Stop: 05/12/21 07:51 Last Admin: 05/12/21 08:25 Dose: Not Given Documented by: Furosemide (Furosemide 20 Mg/2 Ml Vial) 20 mg IVPUSH NOW ONE Stop: 05/13/21 21:44 Last Admin: 05/13/21 22:04 Dose: Not Given Documented by: Furosemide (Furosemide 20 Mg/2 Ml Vial) Confirm Administered Dose 20 mg .ROUTE .STK-MED ONE Stop: 05/13/21 21:49 Last Admin: 05/13/21 22:24 Dose: Not Given Documented by: Hydroxyzine HCl (Hydroxyzine Hcl 25 Mg Tab) 25 mg PO QID BITA Last Admin: 05/12/21 17:40 Dose: Not Given Documented by: Sodium Chloride (Normal Saline) 1,000 mls @ 500 mls/hr IV .BOLUS ONE Stop: 05/12/21 03:51 Last Admin: 05/12/21 05:30 Dose: 500 mls/hr Documented by: Ceftriaxone Sodium 1 gm/ (Sodium Chloride) 50 mls @ 100 mls/hr IV ONETIME ONE Stop: 05/12/21 02:57 Last Admin: 05/12/21 02:46 Dose: 100 mls/hr Documented by: Azithromycin 500 mg/ Sodium (Chloride) 250 mls @ 250 mls/hr IV ONETIME ONE Stop: 05/12/21 03:27 Last Admin: 05/12/21 03:25 Dose: 250 mls/hr Documented by: Norepinephrine Bitartrate 4 mg (/ Dextrose/Water) 250 mls @ 7.5 mls/hr IV TITRATE BITA; Protocol Last Titration: 05/13/21 03:00 Dose: 1.5 mcg/min, 5.625 mls/hr Documented by: Albumin Human (Flexbumin 25%) 200 mls @ 100 mls/hr IV Q12HR ONE Stop: 05/12/21 11:01 Last Admin: 05/12/21 14:16 Dose: Not Given Documented by: Sodium Chloride (Normal Saline) 1,000 mls @ 100 mls/hr IV ASDIRECTED [facility]A Last Admin: 05/12/21 18:00 Dose: 100 mls/hr Documented by: Sodium Chloride (Normal Saline) 1,000 mls @ 250 mls/hr IV ASDIRECTED [facility] Last Admin: 05/12/21 09:15 Dose: 250 mls/hr Documented by: Morphine Sulfate (Morphine 2 Mg/Ml Syringe) Confirm Administered Dose 2 mg .ROUTE .STK-MED ONE Stop: 05/12/21 04:35 Last Admin: 05/12/21 06:08 Dose: Not Given Documented by: Morphine Sulfate (Morphine 2 Mg/Ml Syringe) Confirm Administered Dose 2 mg .ROUTE .STK-MED ONE Stop: 05/14/21 03:56 Last Admin: 05/14/21 04:57 Dose: Not Given Documented by: Non-Formulary Medication (Budesonide/Formoterol [Symbicort 160-4.5 Mcg]) 1 puff INH BID [facility]A Last Admin: 05/14/21 07:54 Dose: Not Given Documented by: - Exam Quality Assessment: Supplemental Oxygen Urinary Catheter Total Time: 2Days 6Hours General: Alert, Oriented, Cooperative HEENT: Pupils Equal, Pupils Reactive, EOMI Neck: Supple Lungs: Decreased Breath Sounds, Crackles, Rales Cardiovascular: Tachycardia, Other (PVC, V-tach) GI/Abdominal Exam: Soft, Non-Tender, Abnormal Bowel Sounds (decreased) Extremities: Normal Inspection Neurological: No New Focal Deficit Psy/Mental Status: Alert, Normal Affect, Normal Mood - Patient Data Lab Results Last 24 hrs: Laboratory Results - last 24 hr 05/14/21 05/14/21 05/14/21 Range/Units 11:00 11:00 11:00 WBC 12.4 H (4.0-11.0) K/uL RBC 2.93 L (4.50-6.50) M/uL Hgb 9.4 L (13.0-18.0) g/dL Hct 28.3 L (40.0-54.0) % MCV 97 H (76-96) fL MCH 32.1 H (27.0-32.0) pg MCHC 33.2 (31.0-35.0) g/dL RDW 14.4 (11.0-16.0) % Plt Count 204 (150-400) K/uL MPV 10.9 H (6.0-10.0) fL Neut % (Auto) 86.0 H (45.0-70.0) % Lymph % (Auto) 4.6 L (20.0-40.0) % Harding % (Auto) 9.1 (3.0-10.0) % Eos % (Auto) 0.2 L (1.0-5.0) % Baso % (Auto) 0.1 (0.0-0.5) % Neut # (Auto) 10.64 H (2.00-7.50) K/uL Lymph # (Auto) 0.57 L (1.50-4.00) K/uL Harding # (Auto) 1.12 H (0.20-0.80) K/uL Eos # (Auto) 0.03 L (0.04-0.40) K/uL Baso # (Auto) 0.01 L (0.02-0.10) K/uL Sodium 140 (136-145) mmol/L Potassium 2.5 L* (3.5-5.1) mmol/L Chloride 104 (98-107) mmol/L Carbon Dioxide 26.4 (21.0-32.0) mmol/L Anion Gap 12.1 (5.0-15.0) mmol/L BUN 12 (8-26) mg/dL Creatinine 1.17 (0.70-1.30) mg/dL Est Cr Clr Drug Dosing 40.06 mL/min Estimated GFR (MDRD) 60 (>60) MLS/MIN BUN/Creatinine Ratio 10.3 (6-25) Glucose 112 H (74-100) mg/dL Lactic Acid 1.7 (0.4-2.0) mmol/L Calcium 7.1 L (8.5-10.1) mg/dL Total Bilirubin 0.8 (0.0-1.0) mg/dL AST 18 (15-37) U/L ALT 18 (12-78) U/L Alkaline Phosphatase 44 L (46-116) U/L Total Protein 5.6 L (6.4-8.2) g/dL Albumin 2.0 L (3.4-5.0) g/dL Globulin 3.6 (2.2-4.2) g/dL Albumin/Globulin Ratio 0.6 L (0.8-2.0) Result Diagrams: 05/14/21 11:00 05/14/21 11:00 Jimmy Results Last 24 hrs: Microbiology 05/12/21 02:20 Aerobic Blood Culture - Preliminary Blood NO GROWTH AFTER 2 DAYS Anaerobic Blood Culture - Preliminary NO GROWTH AFTER 2 DAYS Sepsis Event Note - Evaluation Sepsis Screening Result: No Definite Risk - Focused Exam Vital Signs: Vital Signs Temp Pulse Pulse Resp BP BP Pulse Ox 05/14/21 15:36 93 78/58 L 100 05/14/21 12:04 93 86/62 L 05/14/21 10:50 81/52 L 05/14/21 10:30 86 76/53 L 05/14/21 09:35 84 16 89/60 L 86 L 05/14/21 09:29 88 16 103/73 98 05/14/21 08:02 89 20 103/73 100 05/14/21 07:52 90 101/74 05/14/21 07:00 92 20 96/65 100 05/14/21 06:40 37.2 C 85 18 94/62 100 - Problem List Review Problem List Initiated/Reviewed/Updated: Yes - My Orders Last 24 Hours: My Active Orders 05/14/21 12:21 Urinary Catheter Assessment [RC] 08,05/14/21 12:30 Insert Urinary Catheter [OM.PC] Q24H 05/14/21 18:00 Potassium Chloride 40 meq Dextrose 5%-Lactated Ringers 500 ml IV ASDIRECTED 05/14/21 20:00 Potassium Chloride [Potassium Chloride Solution] 20 meq PO TID 05/15/21 05:11 LACTIC ACID SEPSIS W/ REFLEX [LACTATE SEPSIS W/ REFLEX] [CHEM] DAILY 05/15/21 08:00 Magnesium Oxide 800 mg PO DAILY - Plan Plan:: Patient in ICU Day 1 with BLACKFEET II score 23 with estimated mortality rate of 40%. Cardiogenic shock/Hypotension/CHF - Maintain pressors and titrate. Cardiac monitoring. BNP 04557 (prior BNP 2 months ago 5462). Pneumonia - Rocephin and Azithromycin daily dosing. F/u CBC today and in the AM for further management. S[place]is [place] [address] - f/u CBC. Fluid resuscitation - monitor pulmonary congestion at the same time. Continue IV antibiotics. Acute renal failure - Gentle hydration and repeat BUN/Cr. F/u labs daily and as needed. Renal diet. Anemia - Consider supplementation. F/u CBC and monitor any further drop for blood loss. COPD - On 3L nasal canula; continue current inhaler and nebulizer treatment. Metastatic Pancreatic Cancer - Palliative care patient. May choose to follow up with Oncology as directed. Hypothyroidism - Stable continue on current medication. DVT prophylaxis - SCD's. 05/13/23 ICU Day #2 Cardiogenic shock/Hypotension/CHF - Maintain pressors and titrate. Cardiac monitoring. BNP 05811 (prior BNP 2 months ago 5462). Patient was weaned off last night but had a V-tach and defibrillation event and required to return to pressors. Consideration for central line discussed with family by Harvey and plan for family meeting for millersai as decision by Orestes to stop his defibrillator and pacer. Place on comfort/palliative care. Pneumonia - Rocephin and Azithromycin daily dosing. F/u CBC today and in the AM for further management. Likely discontinue when placed into comfort care. [place]is [place] [address] - f/u CBC. Fluid resuscitation - monitor pulmonary congestion at the same time. Monitor symptoms and may d/c further labs. Acute renal failure - F/u as directed at this time. Anemia - F/u as directed. COPD - On 3L nasal canula; continue current inhaler and nebulizer treatment for comfort. Metastatic Pancreatic Cancer - Palliative care patient. May choose to follow up with Oncology as directed. Hypothyroidism - Stable. DVT prophylaxis - SCD's. 05/14/23 ICU Day #3 Cardiogenic shock/Hypotension/CHF - Maintain pressors and titrate. Cardiac monitoring. Patient on 2mcg/hr pressors. Last night magnet was placed and taped in place to shut off defibrillator. Patient slept well overnight. Left forearm IV line infiltrated with NS and KCl. Discussed plan and patient would like to continue current dose of levophed. Discussed comfort cares status and management as well as continued care planning. Patient to continue on current medications with continued shut of of defibrillator. Pneumonia - Rocephin and Azithromycin daily dosing was held yesterday due to consideration of comfort cares. IV placed x2 and removed infiltrated IV left forearm and right IO line removed. F/u CBC today shows improved WBC and likely resolving pneumonia. Sepsis - Improved WBC. Fluid resuscitation - monitor pulmonary congestion at the same time. Acute renal failure - F/u labs show significant improvement of renal function. Anemia - F/u as directed. COPD - On 3L nasal canula; continue current inhaler and nebulizer treatment for comfort. Metastatic Pancreatic Cancer - Palliative care patient. May choose to follow up with Oncology as directed. Hypothyroidism - Stable. DVT prophylaxis - SCD's. Patient to continue current care and be placed in Med-Surg unit. Discharge from ICU as pneumonia resolving, sepsis resolving, renal function resolving but continued monitoring of Cardiogenic shock, Pulmonary vascular congestion, hypokalemia and levophed management.
[2021-05-14] MEDS ORDERED: POTASSIUM CHLORIDE IV ONE (18:00)
[2021-05-14] MEDS ORDERED: LACTATED RINGERS IV ONE (18:00)
[2021-05-14] MEDS ORDERED: DEXTROSE 5% IV ONE (18:00)
[2021-05-14] MEDS ORDERED: Sodium Chloride 0.9% with KCl 500 ML IV ONE (20:15)
[2021-05-14] MEDS: Tamsulosin 0.4 MG Cap.ER PO SCH (20:42)
[2021-05-14] MEDS: TIMOLOL MALEATE EYELF SCH (20:43)
[2021-05-14] MEDS: Potassium Chloride 10% 20 MEQ/15 ML Soln 15 ML UD Cup PO SCH (20:43)
[2021-05-14] MEDS: Sodium Chloride 0.9% with KCl 1,000 ML ONE (20:44)
[2021-05-15] MEDS ORDERED: Magnesium Sulfate/D5W 2 GM/200 ML BAG ONE (06:41)
[2021-05-15] MEDS ORDERED: Magnesium Sulfate/D5W 1 GM/100 ML Premix Bag IV ONE (07:46)
[2021-05-15] MEDS ORDERED: Magnesium Oxide 400 MG Tab PO SCH (08:00)
[2021-05-15] MEDS ORDERED: Magnesium Sulfate/D5W 1 GM/100 ML Premix Bag IV SCH (08:00)
--- NOTE | 2021-05-15 09:23 | PCM.PN ---
- General Info Date of Service: 05/15/21 Subjective Update: Patient notes he is tired. He is alert and able to express his wishes. He had a run of torsades this am requiring IV Magnesium management which did resolve the Torsades and chest pain. Family present and patient requests no more IV insertions or labs at this time. He would like to keep the levophed at this time. Functional Status: Reports: Pain Controlled - Review of Systems General: Reports: Weakness HEENT: Reports: No Symptoms Pulmonary: Reports: Shortness of Breath Cardiovascular: Reports: Dyspnea on Exertion Gastrointestinal: Reports: Decreased Appetite Genitourinary: Reports: No Symptoms Musculoskeletal: Reports: No Symptoms Skin: Reports: No Symptoms Neurological: Reports: Weakness Psychiatric: Reports: No Symptoms - Patient Data Vitals - Most Recent: Last Vital Signs Temp 36.6 C 05/14/21 20:00 Pulse 110 H 05/15/21 07:33 Resp 16 05/15/21 07:33 BP 118/77 05/15/21 07:33 Pulse Ox 93 L 05/15/21 07:33 Weight - Most Recent: 63.503 kg I&O - Last 24 Hours: Intake & Output 05/14/21 05/15/21 05/15/21 22:59 06:59 14:59 Intake Total 2488 746 Output Total 7014 1500 Balance -3076 -562 Lab Results Last 24 Hours: Laboratory Results - last 24 hr 05/14/21 05/14/21 05/14/21 Range/Units 11:00 11:00 11:00 WBC 12.4 H (4.0-11.0) K/uL RBC 2.93 L (4.50-6.50) M/uL Hgb 9.4 L (13.0-18.0) g/dL Hct 28.3 L (40.0-54.0) % MCV 97 H (76-96) fL MCH 32.1 H (27.0-32.0) pg MCHC 33.2 (31.0-35.0) g/dL RDW 14.4 (11.0-16.0) % Plt Count 204 (150-400) K/uL MPV 10.9 H (6.0-10.0) fL Neut % (Auto) 86.0 H (45.0-70.0) % Lymph % (Auto) 4.6 L (20.0-40.0) % [place] % (Auto) 9.1 (3.0-10.0) % Eos % (Auto) 0.2 L (1.0-5.0) % Baso % (Auto) 0.1 (0.0-0.5) % Neut # (Auto) 10.64 H (2.00-7.50) K/uL Lymph # (Auto) 0.57 L (1.50-4.00) K/uL [place] # (Auto) 1.12 H (0.20-0.80) K/uL Eos # (Auto) 0.03 L (0.04-0.40) K/uL Baso # (Auto) 0.01 L (0.02-0.10) K/uL Sodium 140 (136-145) mmol/L Potassium 2.5 L* (3.5-5.1) mmol/L Chloride 104 (98-107) mmol/L Carbon Dioxide 26.4 (21.0-32.0) mmol/L Anion Gap 12.1 (5.0-15.0) mmol/L BUN 12 (8-26) mg/dL Creatinine 1.17 (0.70-1.30) mg/dL Est Cr Clr Drug Dosing 40.06 mL/min Estimated GFR (MDRD) 60 (>60) MLS/MIN BUN/Creatinine Ratio 10.3 (6-25) Glucose 112 H (74-100) mg/dL Lactic Acid 1.7 (0.4-2.0) mmol/L Calcium 7.1 L (8.5-10.1) mg/dL Total Bilirubin 0.8 (0.0-1.0) mg/dL AST 18 (15-37) U/L ALT 18 (12-78) U/L Alkaline Phosphatase 44 L (46-116) U/L Total Protein 5.6 L (6.4-8.2) g/dL Albumin 2.0 L (3.4-5.0) g/dL Globulin 3.6 (2.2-4.2) g/dL Albumin/Globulin Ratio 0.6 L (0.8-2.0) 05/15/ Range/Units 07:40 WBC (4.0-11.0) K/uL RBC (4.50-6.50) M/uL Hgb (13.0-18.0) g/dL Hct (40.0-54.0) % MCV (76-96) fL MCH (27.0-32.0) pg MCHC (31.0-35.0) g/dL RDW (11.0-16.0) % Plt Count (150-400) K/uL MPV (6.0-10.0) fL Neut % (Auto) (45.0-70.0) % Lymph % (Auto) (20.0-40.0) % [place] % (Auto) (3.0-10.0) % Eos % (Auto) (1.0-5.0) % Baso % (Auto) (0.0-0.5) % Neut # (Auto) (2.00-7.50) K/uL Lymph # (Auto) (1.50-4.00) K/uL [place] # (Auto) (0.20-0.80) K/uL Eos # (Auto) (0.04-0.40) K/uL Baso # (Auto) (0.02-0.10) K/uL Sodium (136-145) mmol/L Potassium (3.5-5.1) mmol/L Chloride (98-107) mmol/L Carbon Dioxide (21.0-32.0) mmol/L Anion Gap (5.0-15.0) mmol/L BUN (8-26) mg/dL Creatinine (0.70-1.30) mg/dL Est Cr Clr Drug Dosing mL/min Estimated GFR (MDRD) (>60) MLS/MIN BUN/Creatinine Ratio (6-25) Glucose (74-100) mg/dL Lactic Acid 1.1 (0.4-2.0) mmol/L Calcium (8.5-10.1) mg/dL Total Bilirubin (0.0-1.0) mg/dL AST (15-37) U/L ALT (12-78) U/L Alkaline Phosphatase (46-116) U/L Total Protein (6.4-8.2) g/dL Albumin (3.4-5.0) g/dL Globulin (2.2-4.2) g/dL Albumin/Globulin Ratio (0.8-2.0) Jimmy Results Last 24 Hours: Microbiology 05/12/21 02:20 Aerobic Blood Culture - Preliminary Blood NO GROWTH AFTER 3 DAYS Anaerobic Blood Culture - Preliminary NO GROWTH AFTER 3 DAYS Med Orders - Current: Current Medications Acetaminophen (Acetaminophen 650 Mg Tab.Er) 650 mg PO Q4H PRN PRN Reason: Pain (severe 7-10) Last Admin: 05/13/21 06:15 Dose: 650 mg Documented by: Apixaban (Apixaban 5 Mg Tab) 5 mg PO BID [facility] Last Admin: 05/14/21 20:42 Dose: 5 mg Documented by: Aspirin (Aspirin 81 Mg Tab.Chew) 81 mg PO DAILY [facility] Last Admin: 05/14/21 07:52 Dose: 81 mg Documented by: Bumetanide (Bumetanide 1 Mg Tab) 1 mg PO ASDIRECTED [facility] Famotidine (Famotidine 20 Mg Tab) 20 mg PO BID [facility] Last Admin: 05/14/21 20:43 Dose: 20 mg Documented by: Furosemide (Furosemide 20 Mg/2 Ml Vial) 20 mg IVPUSH NOW PRN PRN Reason: Dyspnea Last Admin: 05/13/21 21:55 Dose: 20 mg Documented by: Furosemide (Furosemide 40 Mg/4 Ml Vial) 40 mg IVPUSH DAILY [facility] Last Admin: 05/14/21 07:51 Dose: 40 mg Documented by: Hydroxyzine HCl (Hydroxyzine Hcl 25 Mg Tab) 25 mg PO QID PRN PRN Reason: Itching Promethazine HCl 6.25 mg/ (Sodium Chloride) 50.25 mls @ 200 mls/hr IV Q6H PRN PRN Reason: Nausea/Vomiting Ceftriaxone Sodium 1 gm/ (Sodium Chloride) 50 mls @ 100 mls/hr IV Q24H [facility] Last Admin: 05/14/21 14:22 Dose: 100 mls/hr Documented by: Azithromycin 500 mg/ Sodium (Chloride) 250 mls @ 250 mls/hr IV Q24H [facility] Last Admin: 05/14/21 15:09 Dose: 250 mls/hr Documented by: Albumin Human (Flexbumin 25%) 200 mls @ 50 mls/hr IV DAILY [facility] Last Admin: 05/14/21 07:58 Dose: 50 mls/hr Documented by: Potassium Chloride/Sodium Chloride (Normal Saline With 20 Meq Kcl) 1,000 mls @ 100 mls/hr IV ASDIRECTED [facility] Last Admin: 05/14/21 16:09 Dose: 75 mls/hr Documented by: Norepinephrine Bitartrate 4 mg (/ Dextrose/Water) 250 mls @ 7.5 mls/hr IV TITRATE [facility]; Protocol Last Admin: 05/14/21 14:24 Dose: 3 mcg/min, 11.25 mls/hr Documented by: Levothyroxine Sodium (Levothyroxine 100 Mcg Tab) 100 mcg PO ACBREAKFAST [facility] Last Admin: 05/14/21 07:51 Dose: 100 mcg Documented by: Magnesium Oxide (Magnesium Oxide 400 Mg Tab) 800 mg PO DAILY [facility] Magnesium Sulfate/Dextrose (Magnesium Sulfate/D5w 1 Gm/100 Ml Premix Bag) 1 gm IV ASDIRECTED [facility] Metoprolol Tartrate (Metoprolol Tartrate 25 Mg Tab) 25 mg PO BID [facility] Last Admin: 05/14/21 20:37 Dose: Not Given Documented by: Mometasone Furoate/Formoterol Fumar (Formoterol/Mometasone 200-5 Mcg 8.8 Gm Inhaler) 1 puff IH BID [facility] Last Admin: 05/14/21 20:43 Dose: 1 puff Documented by: Morphine Sulfate (Morphine 2 Mg/Ml Syringe) 2 mg IVPUSH Q1H PRN PRN Reason: Pain Last Admin: 05/14/21 17:36 Dose: 2 mg Documented by: Nitroglycerin (Nitroglycerin 0.4 Mg Tab.Sl) 0.4 mg SL Q5M PRN PRN Reason: Chest Pain Non-Formulary Medication (Amiodarone Hcl [Amiodarone Hcl]) 400 mg PO BID [facility] Last Admin: 05/14/21 20:43 Dose: 400 mg Documented by: Non-Formulary Medication (Timolol Maleate [Timoptic 0.25% Oph Soln]) 1 drop EYELF BEDTIME [facility] Last Admin: 05/14/21 20:43 Dose: 1 drop Documented by: Ondansetron HCl (Ondansetron 4 Mg Tab.Dis) 4 mg PO Q4HR PRN PRN Reason: Nausea Last Admin: 05/14/21 17:36 Dose: 4 mg Documented by: Potassium Chloride (Potassium Chloride 10% 20 Meq/15 Ml Soln 15 Ml Ud Cup) 20 meq PO TID [facility] Last Admin: 05/14/21 20:43 Dose: 20 meq Documented by: Tamsulosin HCl (Tamsulosin 0.4 Mg Cap.Er) 0.4 mg PO BEDTIME [facility] Last Admin: 05/14/21 20:42 Dose: 0.4 mg Documented by: Discontinued Medications Albuterol/Ipratropium (Albuterol/Ipratropium 3.0-0.5 Mg/3 Ml Neb Soln) 3 ml NEB ONETIME ONE Stop: 05/12/21 01:34 Last Admin: 05/12/21 01:34 Dose: 3 ml Documented by: Amiodarone HCl (Amiodarone 200 Mg Tab) Confirm Administered Dose 400 mg .ROUTE .STK-MED ONE Stop: 05/12/21 08:38 Last Admin: 05/12/21 08:44 Dose: Not Given Documented by: Amiodarone HCl (Amiodarone 200 Mg Tab) Confirm Administered Dose 400 mg .ROUTE .STK-MED ONE Stop: 05/13/21 07:16 Last Admin: 05/13/21 07:42 Dose: Not Given Documented by: Amiodarone HCl (Amiodarone 200 Mg Tab) Confirm Administered Dose 400 mg .ROUTE .STK-MED ONE Stop: 05/13/21 22:21 Last Admin: 05/14/21 01:42 Dose: Not Given Documented by: Amiodarone HCl (Amiodarone 200 Mg Tab) Confirm Administered Dose 400 mg .ROUTE .STK-MED ONE Stop: 05/14/21 08:02 Last Admin: 05/14/21 08:04 Dose: Not Given Documented by: Amiodarone HCl (Amiodarone 200 Mg Tab) Confirm Administered Dose 400 mg .ROUTE .STK-MED ONE Stop: 05/14/21 20:43 Last Admin: 05/14/21 20:46 Dose: Not Given Documented by: Ceftriaxone Sodium (Ceftriaxone 1 Gm Vial) Confirm Administered Dose 1 gm .ROUTE .STK-MED ONE Stop: 05/12/21 02:52 Last Admin: 05/12/21 06:07 Dose: Not Given Documented by: Ceftriaxone Sodium (Ceftriaxone 1 Gm Vial) Confirm Administered Dose 1 gm .ROUTE .STK-MED ONE Stop: 05/14/21 09:51 Last Admin: 05/14/21 09:50 Dose: Not Given Documented by: Furosemide (Furosemide 40 Mg/4 Ml Vial) 40 mg IVPUSH NOW ONE Stop: 05/12/21 05:02 Last Admin: 05/12/21 09:30 Dose: 40 mg Documented by: Furosemide (Furosemide 40 Mg/4 Ml Vial) Confirm Administered Dose 40 mg .ROUTE .STK-MED ONE Stop: 05/12/21 07:51 Last Admin: 05/12/21 08:25 Dose: Not Given Documented by: Furosemide (Furosemide 20 Mg/2 Ml Vial) 20 mg IVPUSH NOW ONE Stop: 05/13/21 21:44 Last Admin: 05/13/21 22:04 Dose: Not Given Documented by: Furosemide (Furosemide 20 Mg/2 Ml Vial) Confirm Administered Dose 20 mg .ROUTE .STK-MED ONE Stop: 05/13/21 21:49 Last Admin: 05/13/21 22:24 Dose: Not Given Documented by: Hydroxyzine HCl (Hydroxyzine Hcl 25 Mg Tab) 25 mg PO QID [facility] Last Admin: 05/12/21 17:40 Dose: Not Given Documented by: Sodium Chloride (Normal Saline) 1,000 mls @ 500 mls/hr IV .BOLUS ONE Stop: 05/12/21 03:51 Last Admin: 05/12/21 05:30 Dose: 500 mls/hr Documented by: Ceftriaxone Sodium 1 gm/ (Sodium Chloride) 50 mls @ 100 mls/hr IV ONETIME ONE Stop: 05/12/21 02:57 Last Admin: 05/12/21 02:46 Dose: 100 mls/hr Documented by: Azithromycin 500 mg/ Sodium (Chloride) 250 mls @ 250 mls/hr IV ONETIME ONE Stop: 05/12/21 03:27 Last Admin: 05/12/21 03:25 Dose: 250 mls/hr Documented by: Norepinephrine Bitartrate 4 mg (/ Dextrose/Water) 250 mls @ 7.5 mls/hr IV TITRATE [facility]; Protocol Last Titration: 05/13/21 03:00 Dose: 1.5 mcg/min, 5.625 mls/hr Documented by: Albumin Human (Flexbumin 25%) 200 mls @ 100 mls/hr IV Q12HR ONE Stop: 05/12/21 11:01 Last Admin: 05/12/21 14:16 Dose: Not Given Documented by: Sodium Chloride (Normal Saline) 1,000 mls @ 100 mls/hr IV ASDIRECTED [facility] Last Admin: 05/12/21 18:00 Dose: 100 mls/hr Documented by: Sodium Chloride (Normal Saline) 1,000 mls @ 250 mls/hr IV ASDIRECTED [facility] Last Admin: 05/12/21 09:15 Dose: 250 mls/hr Documented by: Potassium Chloride 40 meq/ (Dextrose/Lactated Ringer's) 520 mls @ 150 mls/hr IV ONETIME ONE Stop: 05/14/21 21:27 Last Admin: 05/14/21 20:17 Dose: Not Given Documented by: Potassium Chloride/Sodium Chloride (Normal Saline With 40 Meq Kcl) 500 mls @ 150 mls/hr IV ONETIME ONE Stop: 05/14/21 23:34 Last Admin: 05/14/21 20:38 Dose: 150 mls/hr Documented by: Potassium Chloride/Sodium Chloride (Normal Saline With 40 Meq Kcl) Confirm Administered Dose 1,000 mls @ as directed .ROUTE .STK-MED ONE Stop: 05/14/21 20:21 Last Admin: 05/14/21 20:44 Dose: 150 mls/hr Documented by: Magnesium Sulfate/Dextrose (Magnesium Sulfate In D5w 1 Gm/100 Ml) Confirm Administered Dose 2 gm in 200 mls @ as directed .ROUTE .STK-MED ONE Stop: 05/15/21 06:42 Last Admin: 05/15/21 07:43 Dose: Not Given Documented by: Magnesium Sulfate/Dextrose (Magnesium Sulfate/D5w 1 Gm/100 Ml Premix Bag) 1 gm IV ONETIME ONE Stop: 05/15/21 07:47 Morphine Sulfate (Morphine 2 Mg/Ml Syringe) Confirm Administered Dose 2 mg .ROUTE .STK-MED ONE Stop: 05/12/21 04:35 Last Admin: 05/12/21 06:08 Dose: Not Given Documented by: Morphine Sulfate (Morphine 2 Mg/Ml Syringe) Confirm Administered Dose 2 mg .R OUTE .STK-MED ONE Stop: 05/14/21 03:56 Last Admin: 05/14/21 04:57 Dose: Not Given Documented by: Non-Formulary Medication (Budesonide/Formoterol [Symbicort 160-4.5 Mcg]) 1 puff INH BID [facility] Last Admin: 05/14/21 07:54 Dose: Not Given Documented by: - Exam Quality Assessment: Supplemental Oxygen Urinary Catheter Total Time: 2Days 15Hours General: Alert, Oriented, Cooperative HEENT: Pupils Equal, Pupils Reactive, EOMI Lungs: Decreased Breath Sounds, Crackles, Rales Cardiovascular: Tachycardia, Other (PVC's, V-tach episodes, recent torsades) GI/Abdominal Exam: Other (deferred) Back Exam: Other (bed rest - deferred) Neurological: No New Focal Deficit Psy/Mental Status: Alert, Normal Affect, Normal Mood - Patient Data Lab Results Last 24 hrs: Laboratory Results - last 24 hr 05/14/21 05/14/21 05/14/21 Range/Units 11:00 11:00 11:00 WBC 12.4 H (4.0-11.0) K/uL RBC 2.93 L (4.50-6.50) M/uL Hgb 9.4 L (13.0-18.0) g/dL Hct 28.3 L (40.0-54.0) % MCV 97 H (76-96) fL MCH 32.1 H (27.0-32.0) pg MCHC 33.2 (31.0-35.0) g/dL RDW 14.4 (11.0-16.0) % Plt Count 204 (150-400) K/uL MPV 10.9 H (6.0-10.0) fL Neut % (Auto) 86.0 H (45.0-70.0) % Lymph % (Auto) 4.6 L (20.0-40.0) % [place] % (Auto) 9.1 (3.0-10.0) % Eos % (Auto) 0.2 L (1.0-5.0) % Baso % (Auto) 0.1 (0.0-0.5) % Neut # (Auto) 10.64 H (2.00-7.50) K/uL Lymph # (Auto) 0.57 L (1.50-4.00) K/uL [place] # (Auto) 1.12 H (0.20-0.80) K/uL Eos # (Auto) 0.03 L (0.04-0.40) K/uL Baso # (Auto) 0.01 L (0.02-0.10) K/uL Sodium 140 (136-145) mmol/L Potassium 2.5 L* (3.5-5.1) mmol/L Chloride 104 (98-107) mmol/L Carbon Dioxide 26.4 (21.0-32.0) mmol/L Anion Gap 12.1 (5.0-15.0) mmol/L BUN 12 (8-26) mg/dL Creatinine 1.17 (0.70-1.30) mg/dL Est Cr Clr Drug Dosing 40.06 mL/min Estimated GFR (MDRD) 60 (>60) MLS/MIN BUN/Creatinine Ratio 10.3 (6-25) Glucose 112 H (74-100) mg/dL Lactic Acid 1.7 (0.4-2.0) mmol/L Calcium 7.1 L (8.5-10.1) mg/dL Total Bilirubin 0.8 (0.0-1.0) mg/dL AST 18 (15-37) U/L ALT 18 (12-78) U/L Alkaline Phosphatase 44 L (46-116) U/L Total Protein 5.6 L (6.4-8.2) g/dL Albumin 2.0 L (3.4-5.0) g/dL Globulin 3.6 (2.2-4.2) g/dL Albumin/Globulin Ratio 0.6 L (0.8-2.0) 05/15/21 Range/Units 07:40 WBC (4.0-11.0) K/uL RBC (4.50-6.50) M/uL Hgb (13.0-18.0) g/dL Hct (40.0-54.0) % MCV (76-96) fL MCH (27.0-32.0) pg MCHC (31.0-35.0) g/dL RDW (11.0-16.0) % Plt Count (150-400) K/uL MPV (6.0-10.0) fL Neut % (Auto) (45.0-70.0) % Lymph % (Auto) (20.0-40.0) % [place] % (Auto) (3.0-10.0) % Eos % (Auto) (1.0-5.0) % Baso % (Auto) (0.0-0.5) % Neut # (Auto) (2.00-7.50) K/uL Lymph # (Auto) (1.50-4.00) K/uL [place] # (Auto) (0.20-0.80) K/uL Eos # (Auto) (0.04-0.40) K/uL Baso # (Auto) (0.02-0.10) K/uL Sodium (136-145) mmol/L Potassium (3.5-5.1) mmol/L Chloride (98-107) mmol/L Carbon Dioxide (21.0-32.0) mmol/L Anion Gap (5.0-15.0) mmol/L BUN (8-26) mg/dL Creatinine (0.70-1.30) mg/dL Est Cr Clr Drug Dosing mL/min Estimated GFR (MDRD) (>60) MLS/MIN BUN/Creatinine Ratio (6-25) Glucose (74-100) mg/dL Lactic Acid 1.1 (0.4-2.0) mmol/L Calcium (8.5-10.1) mg/dL Total Bilirubin (0.0-1.0) mg/dL AST (15-37) U/L ALT (12-78) U/L Alkaline Phosphatase (46-116) U/L Total Protein (6.4-8.2) g/dL Albumin (3.4-5.0) g/dL Globulin (2.2-4.2) g/dL Albumin/Globulin Ratio (0.8-2.0) Result Diagrams: 05/14/21 11:00 05/14/21 11:00 Jimmy Results Last 24 hrs: Microbiology 05/12/21 02:20 Aerobic Blood Culture - Preliminary Blood NO GROWTH AFTER 3 DAYS Anaerobic Blood Culture - Preliminary NO GROWTH AFTER 3 DAYS Sepsis Event Note - Evaluation Sepsis Screening Result: No Definite Risk - Focused Exam Vital Signs: Vital Signs Pulse Resp BP Pulse Ox 05/15/21 07:33 110 H 16 118/77 93 L 05/15/21 04:00 99 16 98/69 100 05/14/21 23:57 96 12 94/62 100 - Problem List Review Problem List Initiated/Reviewed/Updated: Yes - My Orders Last 24 Hours: My Active Orders 05/14/21 12:21 Urinary Catheter Assessment [RC] 05/14/21 12:30 Insert Urinary Catheter [OM.PC] Q24H 05/14/21 20:00 Potassium Chloride [Potassium Chloride Solution] 20 meq PO TID 05/15/21 08:00 Magnesium Oxide 800 mg PO DAILY Magnesium Sulfate/D5W [Magnesium Sulfate in D5W 1 GM/100 ML] 1 gm IV ASDIRECTED - Plan Plan:: Patient in ICU Day 1 with LIME II score 23 with estimated mortality rate of 40%. Cardiogenic shock/Hypotension/CHF - Maintain pressors and titrate. Cardiac monitoring. BNP 72315 (prior BNP 2 months ago 5462). Pneumonia - Rocephin and Azithromycin daily dosing. F/u CBC today and in the AM for further management. [place]is [place] [address] - f/u CBC. Fluid resuscitation - monitor pulmonary congestion at the same time. Continue IV antibiotics. Acute renal failure - Gentle hydration and repeat BUN/Cr. F/u labs daily and as needed. Renal diet. Anemia - Consider supplementation. F/u CBC and monitor any further drop for blood loss. COPD - On 3L nasal canula; continue current inhaler and nebulizer treatment. Metastatic Pancreatic Cancer - Palliative care patient. May choose to follow up with Oncology as directed. Hypothyroidism - Stable continue on current medication. DVT prophylaxis - SCD's. 05/13/23 ICU Day #2 Cardiogenic shock/Hypotension/CHF - Maintain pressors and titrate. Cardiac monit oring. BNP 70585 (prior BNP 2 months ago 5462). Patient was weaned off last night but had a V-tach and defibrillation event and required to return to pressors. Consideration for central line discussed with family by Harvey and plan for family meeting for kam as decision by Orestes to stop his defibrillator and pacer. Place on comfort/palliative care. Pneumonia - Rocephin and Azithromycin daily dosing. F/u CBC today and in the AM for further management. Likely discontinue when placed into comfort care. [place]is [place] [address] - f/u CBC. Fluid resuscitation - monitor pulmonary congestion at the same time. Monitor symptoms and may d/c further labs. Acute renal failure - F/u as directed at this time. Anemia - F/u as directed. COPD - On 3L nasal canula; continue current inhaler and nebulizer treatment for comfort. Metastatic Pancreatic Cancer - Palliative care patient. May choose to follow up with Oncology as directed. Hypothyroidism - Stable. DVT prophylaxis - SCD's. 05/14/23 ICU Day #3 Cardiogenic shock/Hypotension/CHF - Maintain pressors and titrate. Cardiac monitoring. Patient on 2mcg/hr pressors. Last night magnet was placed and taped in place to shut off defibrillator. Patient slept well overnight. Left forearm IV line infiltrated with NS and KCl. Discussed plan and patient would like to continue current dose of levophed. Discussed comfort cares status and management as well as continued care planning. Patient to continue on current medications with continued shut of of defibrillator. Pneumonia - Rocephin and Azithromycin daily dosing was held yesterday due to consideration of comfort cares. IV placed x2 and removed infiltrated IV left forearm and right IO line removed. F/u CBC today shows improved WBC and likely resolving pneumonia. Sepsis - Improved WBC. Fluid resuscitation - monitor pulmonary congestion at the same time. Acute renal failure - F/u labs show significant improvement of renal function. Anemia - F/u as directed. COPD - On 3L nasal canula; continue current inhaler and nebulizer treatment for comfort. Metastatic Pancreatic Cancer - Palliative care patient. May choose to follow up with Oncology as directed. Hypothyroidism - Stable. DVT prophylaxis - SCD's. Patient to continue current care and be placed in Med-Surg unit. Discharge from ICU as pneumonia resolving, sepsis resolving, renal function resolving but continued monitoring of Cardiogenic shock, Pulmonary vascular congestion, hypokalemia and levophed management. 05/15/23 Med-Surg Day #1 Cardiogenic shock/Hypotension/CHF - Maintain pressors but no further increase and discussion of taper and discontinue. Cardiac monitoring to continue at this time. Patient had torsades overnight and was given Magnesium after new IV's placed. Discussed plan and patient would like to continue current dose of levophed. Discussed comfort cares status and management as well as continued care planning. Patient refused oral meds today. Pneumonia -No longer a treatment plan and likely resolved with prior Antibiotics treatment. No further labs to be done per patient wishes at this time. Sepsis - Improved WBC. Fluid resuscitation - monitor pulmonary congestion at the same time. Acute renal failure - Labs yesterday show significant improvement of renal funct ion - Resolved. Anemia - F/u as directed. No plan of care for anemia at this time. COPD - On 3L nasal canula; continue current inhaler and nebulizer treatment for comfort. Continue Oxygen as needed. Metastatic Pancreatic Cancer - Palliative care patient. May choose to follow up with Oncology as directed. Hypothyroidism - Stable. DVT prophylaxis - SCD's. Patient to continue current care in Med-Surg unit. Cardiogenic shock, Pulmonary vascular congestion, Pain management and levophed management to continue. No further IV insertions or labs. Family in agreement with plan of care.
[2021-05-15] MEDS ORDERED: Morphine Oral Concentrate 20 MG/ML 30 ML Bottle PO PRN (09:37)
[2021-05-15] MEDS: Furosemide 40 MG/4 ML VIAL IVPUSH SCH (10:10)
[2021-05-15] MEDS: Morphine 2 MG/ML SYRINGE IVPUSH PRN ×6 (10:10→23:30)
[2021-05-15] MEDS: Ondansetron 4 MG Tab.DIS PO PRN ×2 (10:10→18:28)
[2021-05-15] MEDS: Aspirin 81 MG Tab.Chew PO SCH (13:34)
[2021-05-15] MEDS: Levothyroxine 100 MCG Tab PO SCH (13:34)
[2021-05-15] MEDS: AMIODARONE HCL 400 MG PO SCH ×2 (13:34→20:09)
[2021-05-15] MEDS: Potassium Chloride 10% 20 MEQ/15 ML Soln 15 ML UD Cup PO SCH ×3 (13:35→20:10)
[2021-05-15] MEDS: Famotidine 20 MG Tab PO SCH ×2 (13:35→20:10)
[2021-05-15] MEDS: Formoterol/Mometasone 200-5 MCG 8.8 GM Inhaler IH SCH ×2 (13:35→20:09)
[2021-05-15] MEDS: Apixaban 5 MG Tab PO SCH ×2 (13:35→20:09)
[2021-05-15] MEDS: Metoprolol Tartrate 25 MG Tab PO SCH ×2 (13:35→20:10)
[2021-05-15] MEDS: Albumin 25% 200 ML IV SCH (13:36)
[2021-05-15] MEDS: Norepinephrine 4 MG in Dextrose 5% in Water 246 ML IV SCH ×2 (15:04)
[2021-05-15] MEDS: cefTRIAXone 1 GM in Sodium Chloride 0.9% 50 ML IV SCH (17:17)
[2021-05-15] MEDS: Tamsulosin 0.4 MG Cap.ER PO SCH (20:09)
[2021-05-15] MEDS: TIMOLOL MALEATE EYELF SCH (20:10)
[2021-05-16 02:42] VITALS: BP 112/72; PULSE 83
[2021-05-16] MEDS: Morphine 2 MG/ML SYRINGE IVPUSH PRN (02:45)
--- NOTE | 2021-05-16 08:44 | PCM.DCSUM1 ---
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 sheather removed with family and patient in agreement. - Discharge Data Discharge Date: 05/16/21 Discharge Disposition: 20 Condition: Good - Referral to Home Health Primary Care Physician: PCP None - Discharge Diagnosis/Problem(s) (1) Palliative care patient SNOMED Code(s): 436662257, [id number] ICD Code: Z51.5 - ENCOUNTER FOR PALLIATIVE CARE Status: Resolved Current Visit: Yes - Discharge Plan *PRESCRIPTION DRUG MONITORING PROGRAM REVIEWED*: Yes *COPY OF PRESCRIPTION DRUG MONITORING REPORT IN PATIENT JASPAL: Yes Home Medications: Home Meds Apixaban [Eliquis] 5 mg PO BID 04/30/18 [History] atorvaSTATin [Lipitor] 40 mg PO BEDTIME 06/23/18 [History] Acetaminophen [Tylenol Arthritis Pain] 650 mg PO Q4H PRN tab.er 07/03/18 [Rx] Levothyroxine Sodium [Synthroid] 100 mcg PO ACBREAKFAST 30 Days #30 tab 07/03/18 [Rx] Nitroglycerin [Nitrostat] 0.4 mg SL Q5M PRN tab.sl 07/03/18 [Rx] Tamsulosin [Flomax] 0.4 mg PO BEDTIME 30 Days #30 cap.er 07/03/18 [Rx] Famotidine [Pepcid] 20 mg PO BID 10/02/18 [History] Aspirin 81 mg PO DAILY 03/14/21 [History] Bumetanide [Bumex] 1 mg PO ASDIRECTED 03/14/21 [History] Metoprolol Tartrate 25 mg PO BID 03/14/21 [History] timoloL maleate [Timoptic 0.25% Ophth Soln] 1 drop EYELF BEDTIME 03/14/21 [History] Budesonide/Formoterol [Symbicort 160-4.5 MCG] 1 puff INH BID 04/21/21 [History] Morphine [Morphine 10 MG/5 ML] 2.5 ml PO Q4HR PRN 04/21/21 [History] Ondansetron [Zofran ODT] 4 mg PO Q4HR PRN 04/21/21 [History] hydrOXYzine HCL [Atarax] 25 mg PO QID 04/21/21 [History] Amiodarone HCl 400 mg PO BID #60 tablet 04/24/21 [Rx] Forms: ED Department Discharge - Discharge Summary/Plan Comment DC Time >30 min.: No Total # of Minutes for Discharge Time: 10 Discharge Summary/Plan Comment: Patient passed peacefully with family present this morning. home contacted. - Patient Data Vitals - Most Recent: Last Vital Signs Temp 37.9 C 05/15/21 20:00 Pulse 83 05/16/21 00:00 Resp 16 05/16/21 00:00 BP 112/72 05/16/21 00:00 Pulse Ox 95 05/16/21 00:00 Weight - Most Recent: 63.503 kg I&O - Last 24 hours: Intake & Output 05/15/21 05/16/21 05/16/21 22:59 06:59 14:59 Intake Total 160 Output Total 1175 Balance -1015 NELLIE Results - Last 24 hrs: Microbiology 05/12/21 02:20 Aerobic Blood Culture - Preliminary Blood NO GROWTH AFTER 4 DAYS Anaerobic Blood Culture - Preliminary NO GROWTH AFTER 4 DAYS Med Orders - Current: Current Medications Acetaminophen (Acetaminophen 650 Mg Tab.Er) 650 mg PO Q4H PRN PRN Reason: Pain (severe 7-10) Last Admin: 05/13/21 06:15 Dose: 650 mg Documented by: Apixaban (Apixaban 5 Mg Tab) 5 mg PO BID [facility] Last Admin: 05/15/21 20:09 Dose: Not Given Documented by: Aspirin (Aspirin 81 Mg Tab.Chew) 81 mg PO DAILY [facility] Last Admin: 05/15/21 13:34 Dose: Not Given Documented by: Bumetanide (Bumetanide 1 Mg Tab) 1 mg PO ASDIRECTED [facility] Famotidine (Famotidine 20 Mg Tab) 20 mg PO BID [facility] Last Admin: 05/15/21 20:10 Dose: Not Given Documented by: Furosemide (Furosemide 20 Mg/2 Ml Vial) 20 mg IVPUSH NOW PRN PRN Reason: Dyspnea Last Admin: 05/13/21 21:55 Dose: 20 mg Documented by: Furosemide (Furosemide 40 Mg/4 Ml Vial) 40 mg IVPUSH DAILY [facility] Last Admin: 05/15/21 10:10 Dose: 40 mg Documented by: Hydroxyzine HCl (Hydroxyzine Hcl 25 Mg Tab) 25 mg PO QID PRN PRN Reason: Itching Promethazine HCl 6.25 mg/ (Sodium Chloride) 50.25 mls @ 200 mls/hr IV Q6H PRN PRN Reason: Nausea/Vomiting Potassium Chloride/Sodium Chloride (Normal Saline With 20 Meq Kcl) 1,000 mls @ 100 mls/hr IV ASDIRECTED [facility] Last Admin: 05/14/21 16:09 Dose: 75 mls/hr Documented by: Norepinephrine Bitartrate 4 mg (/ Dextrose/Water) 250 mls @ 7.5 mls/hr IV TITRATE [facility]; Protocol Last Admin: 05/15/21 15:04 Dose: 3 mcg/min, 11.25 mls/hr Documented by: Levothyroxine Sodium (Levothyroxine 100 Mcg Tab) 100 mcg PO ACBREAKFAST [facility] Last Admin: 05/15/21 13:34 Dose: Not Given Documented by: Magnesium Oxide (Magnesium Oxide 400 Mg Tab) 800 mg PO DAILY [facility] Last Admin: 05/15/21 13:35 Dose: Not Given Documented by: Magnesium Sulfate/Dextrose (Magnesium Sulfate/D5w 1 Gm/100 Ml Premix Bag) 1 gm IV ASDIRECTED [facility] Metoprolol Tartrate (Metoprolol Tartrate 25 Mg Tab) 25 mg PO BID [facility] Last Admin: 05/15/21 20:10 Dose: Not Given Documented by: Mometasone Furoate/Formoterol Fumar (Formoterol/Mometasone 200-5 Mcg 8.8 Gm Inhaler) 1 puff IH BID [facility] Last Admin: 05/15/21 20:09 Dose: Not Given Documented by: Morphine Sulfate (Morphine 2 Mg/Ml Syringe) 2 mg IVPUSH Q1H PRN PRN Reason: Pain Last Admin: 05/16/21 02:45 Dose: 2 mg Documented by: Morphine Sulfate (Morphine Oral Concentrate 20 Mg/Ml 30 Ml Bottle) 2 - 4 mg PO Q1H PRN PRN Reason: Pain Nitroglycerin (Nitroglycerin 0.4 Mg Tab.Sl) 0.4 mg SL Q5M PRN PRN Reason: Chest Pain Non-Formulary Medication (Amiodarone Hcl [Amiodarone Hcl]) 400 mg PO BID [facility] Last Admin: 05/15/21 20:09 Dose: Not Given Documented by: Non-Formulary Medication (Timolol Maleate [Timoptic 0.25% Ophth Soln]) 1 drop EYELF BEDTIME [facility] Last Admin: 05/15/21 20:10 Dose: Not Given Documented by: Ondansetron HCl (Ondansetron 4 Mg Tab.Dis) 4 mg PO Q4HR PRN PRN Reason: Nausea Last Admin: 05/15/21 18:28 Dose: 4 mg Documented by: Potassium Chloride (Potassium Chloride 10% 20 Meq/15 Ml Soln 15 Ml Ud Cup) 20 meq PO TID [facility] Last Admin: 05/15/21 20:10 Dose: Not Given Documented by: Tamsulosin HCl (Tamsulosin 0.4 Mg Cap.Er) 0.4 mg PO BEDTIME [facility] Last Admin: 05/15/21 20:09 Dose: Not Given Documented by: Discontinued Medications Albuterol/Ipratropium (Albuterol/Ipratropium 3.0-0.5 Mg/3 Ml Neb Soln) 3 ml NEB ONETIME ONE Stop: 05/12/21 01:34 Last Admin: 05/12/21 01:34 Dose: 3 ml Documented by: Amiodarone HCl (Amiodarone 200 Mg Tab) Confirm Administered Dose 400 mg .ROUTE .STK-MED ONE Stop: 05/12/21 08:38 Last Admin: 05/12/21 08:44 Dose: Not Given Documented by: Amiodarone HCl (Amiodarone 200 Mg Tab) Confirm Administered Dose 400 mg .ROUTE .STK-MED ONE Stop: 05/13/21 07:16 Last Admin: 05/13/21 07:42 Dose: Not Given Documented by: Amiodarone HCl (Amiodarone 200 Mg Tab) Confirm Administered Dose 400 mg .ROUTE .STK-MED ONE Stop: 05/13/21 22:21 Last Admin: 05/14/21 01:42 Dose: Not Given Documented by: Amiodarone HCl (Amiodarone 200 Mg Tab) Confirm Administered Dose 400 mg .ROUTE .STK-MED ONE Stop: 05/14/21 08:02 Last Admin: 05/14/21 08:04 Dose: Not Given Documented by: Amiodarone HCl (Amiodarone 200 Mg Tab) Confirm Administered Dose 400 mg .ROUTE .STK-MED ONE Stop: 05/14/21 20:43 Last Admin: 05/14/21 20:46 Dose: Not Given Documented by: Ceftriaxone Sodium (Ceftriaxone 1 Gm Vial) Confirm Administered Dose 1 gm .ROUTE .STK-MED ONE Stop: 05/12/21 02:52 Last Admin: 05/12/21 06:07 Dose: Not Given Documented by: Ceftriaxone Sodium (Ceftriaxone 1 Gm Vial) Confirm Administered Dose 1 gm .ROUTE .STK-MED ONE Stop: 05/14/21 09:51 Last Admin: 05/14/21 09:50 Dose: Not Given Documented by: Furosemide (Furosemide 40 Mg/4 Ml Vial) 40 mg IVPUSH NOW ONE Stop: 05/12/21 05:02 Last Admin: 05/12/21 09:30 Dose: 40 mg Documented by: Furosemide (Furosemide 40 Mg/4 Ml Vial) Confirm Administered Dose 40 mg .ROUTE .STK-MED ONE Stop: 05/12/21 07:51 Last Admin: 05/12/21 08:25 Dose: Not Given Documented by: Furosemide (Furosemide 20 Mg/2 Ml Vial) 20 mg IVPUSH NOW ONE Stop: 05/13/21 21:44 Last Admin: 05/13/21 22:04 Dose: Not Given Documented by: Furosemide (Furosemide 20 Mg/2 Ml Vial) Confirm Administered Dose 20 mg .ROUTE .STK-MED ONE Stop: 05/13/21 21:49 Last Admin: 05/13/21 22:24 Dose: Not Given Documented by: Hydroxyzine HCl (Hydroxyzine Hcl 25 Mg Tab) 25 mg PO QID [facility] Last Admin: 05/12/21 17:40 Dose: Not Given Documented by: Sodium Chloride (Normal Saline) 1,000 mls @ 500 mls/hr IV .BOLUS ONE Stop: 05/12/21 03:51 Last Admin: 05/12/21 05:30 Dose: 500 mls/hr Documented by: Ceftriaxone Sodium 1 gm/ (Sodium Chloride) 50 mls @ 100 mls/hr IV ONETIME ONE Stop: 05/12/21 02:57 Last Admin: 05/12/21 02:46 Dose: 100 mls/hr Documented by: Azithromycin 500 mg/ Sodium (Chloride) 250 mls @ 250 mls/hr IV ONETIME ONE Stop: 05/12/21 03:27 Last Admin: 05/12/21 03:25 Dose: 250 mls/hr Documented by: Norepinephrine Bitartrate 4 mg (/ Dextrose/Water) 250 mls @ 7.5 mls/hr IV TITRATE [facility]; Protocol Last Titration: 05/13/21 03:00 Dose: 1.5 mcg/min, 5.625 mls/hr Documented by: Albumin Human (Flexbumin 25%) 200 mls @ 100 mls/hr IV Q12HR ONE Stop: 05/12/21 11:01 Last Admin: 05/12/21 14:16 Dose: Not Given Documented by: Ceftriaxone Sodium 1 gm/ (Sodium Chloride) 50 mls @ 100 mls/hr IV Q24H [facility] Last Admin: 05/15/21 17:17 Dose: Not Given Documented by: Azithromycin 500 mg/ Sodium (Chloride) 250 mls @ 250 mls/hr IV Q24H [facility] Last Admin: 05/14/21 15:09 Dose: 250 mls/hr Documented by: Albumin Human (Flexbumin 25%) 200 mls @ 50 mls/hr IV DAILY [facility] Last Admin: 05/15/21 13:36 Dose: Not Given Documented by: Sodium Chloride (Normal Saline) 1,000 mls @ 100 mls/hr IV ASDIRECTED [facility] Last Admin: 05/12/21 18:00 Dose: 100 mls/hr Documented by: Sodium Chloride (Normal Saline) 1,000 mls @ 250 mls/hr IV ASDIRECTED [facility] Last Admin: 05/12/21 09:15 Dose: 250 mls/hr Documented by: Potassium Chloride 40 meq/ (Dextrose/Lactated Ringer's) 520 mls @ 150 mls/hr IV ONETIME ONE Stop: 05/14/21 21:27 Last Admin: 05/14/21 20:17 Dose: Not Given Documented by: Potassium Chloride/Sodium Chloride (Normal Saline With 40 Meq Kcl) 500 mls @ 150 mls/hr IV ONETIME ONE Stop: 05/14/21 23:34 Last Admin: 05/14/21 20:38 Dose: 150 mls/hr Documented by: Potassium Chloride/Sodium Chloride (Normal Saline With 40 Meq Kcl) Confirm Administered Dose 1,000 mls @ as directed .ROUTE .STK-MED ONE Stop: 05/14/21 20:21 Last Admin: 05/14/21 20:44 Dose: 150 mls/hr Documented by: Magnesium Sulfate/Dextrose (Magnesium Sulfate In D5w 1 Gm/100 Ml) Confirm Administered Dose 2 gm in 200 mls @ as directed .ROUTE .STK-MED ONE Stop: 05/15/21 06:42 Last Admin: 05/15/21 07:43 Dose: Not Given Documented by: Magnesium Sulfate/Dextrose (Magnesium Sulfate/D5w 1 Gm/100 Ml Premix Bag) 1 gm IV ONETIME ONE Stop: 05/15/21 07:47 Mineral Oil (Mineral Oil 473 Ml Bottle) 15 ml PO ONETIME ONE Stop: 05/15/21 23:33 Morphine Sulfate (Morphine 2 Mg/Ml Syringe) Confirm Administered Dose 2 mg .ROUTE .STK-MED ONE Stop: 05/12/21 04:35 Last Admin: 05/12/21 06:08 Dose: Not Given Documented by: Morphine Sulfate (Morphine 2 Mg/Ml Syringe) Confirm Administered Dose 2 mg .ROUTE .STK-MED ONE Stop: 05/14/21 03:56 Last Admin: 05/14/21 04:57 Dose: Not Given Documented by: Non-Formulary Medication (Budesonide/Formoterol [Symbicort 160-4.5 Mcg]) 1 puff INH BID [facility] Last Admin: 05/14/21 07:54 Dose: Not Given Documented by:
== END 2021-05-16 03:00 | disposition expired | DRG 871 ==
LOC: LB.ED 00:56 → LB.MS 03:53
PROVIDERS: ADMIT Physician Assistant; ATTEND Physician Assistant
PROC: 3E033XZ Introduction of Vasopressor into Peripheral Vein, Percutaneous Approach (ICD-10-PCS; principal; 2021-05-12)
DX: A41.9 Sepsis, unspecified organism (principal); I50.43 Acute on chronic combined systolic (congestive) and diastolic (congestive) heart failure; J18.9 Pneumonia, unspecified organism; N17.9 Acute kidney failure, unspecified; C25.9 Malignant neoplasm of pancreas, unspecified; J44.0 Chronic obstructive pulmonary disease with (acute) lower respiratory infection; R57.0 Cardiogenic shock; Z51.5 Encounter for palliative care; Z66 Do not resuscitate; D64.9 Anemia, unspecified; Z20.822 Contact with and (suspected) exposure to COVID-19; I11.0 Hypertensive heart disease with heart failure; E03.9 Hypothyroidism, unspecified; H54.7 Unspecified visual loss; E78.00 Pure hypercholesterolemia, unspecified; K21.9 Gastro-esophageal reflux disease without esophagitis; G89.29 Other chronic pain; M54.9 Dorsalgia, unspecified; E20.9 Hypoparathyroidism, unspecified; H40.9 Unspecified glaucoma; I48.91 Unspecified atrial fibrillation; Z95.1 Presence of aortocoronary bypass graft; I25.2 Old myocardial infarction; Z95.5 Presence of coronary angioplasty implant and graft; Z79.01 Long term (current) use of anticoagulants; Z79.82 Long term (current) use of aspirin; Z79.890 Hormone replacement therapy; Z79.51 Long term (current) use of inhaled steroids; Z79.899 Other long term (current) drug therapy; Z95.810 Presence of automatic (implantable) cardiac defibrillator; Z86.74 Personal history of sudden cardiac arrest; R65.20 Severe sepsis without septic shock
CPT/HCPCS: 36415; 36680; 51701; 51702; 71045; 80053; 81001; 83605; 83735; 83880; 84443; 84484; 85025; 87040; 93005; 94640; 96365; 96367; 96368; 99285-25; A0425; A0429; A9270-GY; J0456; J0696; J1940; J2270; J3480; J7030; J7050; J7060; J7620-GY; P9047; U0002